=== PATIENT | male | born 1955 | race Caucasian/White ===

== ENCOUNTER 2020-12-26 14:13 | Emergency (ER) | payer MEDICARE, SELFPAY ==
--- NOTE | ~2020-12-26 | CT_ITS ---
EXAMINATION: CT brain wo con DATE: 12/26/2020 18:18 INDICATION: Headache. TECHNIQUE: Computed tomography (CT) of the head was performed without intravenous contrast. The mA wa s adjusted according to patient size. Iterative reconstruction technique was employed. The dose-lengt h product was 605.33 mGy-cm. COMPARISON: None FINDINGS: There is no intracranial hemorrhage, acute infarction, or abnormal intracranial mass lesion . The ventricles are normal in size. The orbits are normal. The paranasal sinuses are clear. The mast oid air cells are normal. IMPRESSION: 1. Normal brain. Reviewed, dictated and finalized at location A. IMPRESSION: 1. Normal brain.
--- NOTE | ~2020-12-26 | XR_ITS ---
EXAMINATION: XR chest 1V portable DATE: 12/26/2020 18:17 INDICATION: Cough. Headache. Dizziness. TECHNIQUE: A single frontal view of the chest was obtained on 2 radiographs. COMPARISON: Bilateral rib radiographs 05/07/2018 FINDINGS: The chest demonstrates clear lungs without pneumonia, pleural effusion, or pneumothorax. Th e heart size is normal. Wires overlie the right shoulder. IMPRESSION: 1. No acute cardiopulmonary disease. Reviewed, dictated and finalized at location A.
[2020-12-26 14:33] VITALS: BP 115/61; PULSE 57; RESP 16; TEMP 36.8; O2SAT 99
--- NOTE | 2020-12-26 14:35 | ECG_ITS ---
Measurements Intervals [place] Rate: 51 P: 71 CT: 167 QRS: 8 QRSD: 87 T: 29 QT: 413 QTc: 383 Interpretive Statements SINUS BRADYCARDIA NONSPECIFIC T-WAVE ABNORMALITY- LATERAL LEADS BASELINE ARTIFACT- I, III, AVL BORDERLINE ECG Electronically Signed On 12-26-2020 14:50:01 CDT by Cezar Johnson D.O.
[2020-12-26 14:52] LABS: Basophils Percent Auto 0.5 % (0.2-1.2); Eosinophils Percent Auto 0.5 % (0-4.4); Hematocrit 40.4 % (42.0-52.0); Hemoglobin 13.6 g/dL (14.0-18.0); Immature Granulocyte Absolute 0.01 K/mm3 (0.00-0.031); Immature Granulocyte Percent A 0.2 % (0-0.5); Lymphocytes Absolute Auto 1.37 K/mm3 (0.9-3.2); Lymphocytes Percent Auto 20.7 % (18.3-44.2); Mean Corpuscular HGB Conc 33.7 g/dl (32-36); Mean Corpuscular Hemoglobin 30.4 pg (26-34); Mean Corpuscular Volume 90.4 fl (80-100); Mean Platelet Volume 8.8 fl (7.4-10.4); Monocytes Absolute Auto 0.6 K/mm3 (0.1-0.6); Monocytes Percent Auto 8.3 % (2.6-8.5); Neutrophils Absolute Auto 4.6 K/mm3 (1.3-6.7); Neutrophils Percent Auto 69.8 % (45.5-73.1); Platelet Count Result 155 k/mm3 (150-375); Red Blood Count 4.47 M/mm3 (4.6-6.20); Red Cell Distribution Width 13.1 % (11.5-14.5); White Blood Count 6.6 K/mm3 (4.5-10.0)
[2020-12-26 15:07] LABS: Anion Gap 4 mmol/L (8-16); Blood Urea Nitrogen 13 mg/dL (9-20); Calcium 9.1 mg/dL (8.4-10.2); Carbon Dioxide 32 mmol/L (22-30); Chloride 101 mmol/L (98-107); Estimated CRCL calculation 84 ml/min; Estimated Glomerular Filt Rate > 60; Glucose 109 mg/dL (65-110); Potassium 4.1 mmol/L (3.4-5.0); Sodium 137 mmol/L (137-145)
--- NOTE | 2020-12-26 17:45 | ED.HA ---
HPI - Headache General Chief Complaint: Dizziness Stated Complaint: dizzy/anxiety Time Seen by Provider: 12/26/20 17:56 Source: patient Mode of arrival: ambulatory Limitations: no limitations History of Present Illness MD elicited complaint: headache and migraine Pertinent past history: migraines Onset (ago): week(s) (3) Onset description: gradually Location: generalized Severity: similar to previous episodes (15 year history of migraines) Quality & Timing: aching, throbbing, steady and similar to previous headaches Exacerbating factors: other (states usually takes valium daily for headache, but has not had valium for 3 weeks, neurolgist Dr Hillman) Relieving factors: prescription medication (valium) Context: occurred at rest and occurred with exertion/activity Associated symptoms: numbness and other (elevated blood pressure, dizziness, anxiety, depression per patient) Treatments prior to arrival: prescription analgesic and migraine medication Related Data Home Medications Medication Instructions Recorded Confirmed diazepam 10 mg tablet 10 mg PO TID PRN 02/12/21 02/12/21 melatonin 5 mg capsule mg PO .hs PRN cap 02/12/21 02/12/21 Allergies Allergy/AdvReac Type Severity Reaction Status Date / Time No Known Allergies Allergy Unknown Verified 02/12/21 15:39 Review of Systems Review of Systems: CONSTITUTIONAL: no fever, no weight loss, no confusion EYES: no vision changes, no eye pain ENT: no rhinorrhea, no sore throat, no difficulty swallowing CARDIOVASCULAR: no chest pain, no leg edema, no palpitations RESPIRATORY: no cough, no shortness of breath, no hemoptysis GASTROINTESTINAL: no abdominal pain, no nausea, no vomiting, no diarrhea GENITOURINARY: no flank pain, no dysuria, no hematuria SKIN: no rash, no jaundice MUSCULOSKELETAL: no back pain, no trauma. NEUROLOGIC: positive for headache, positive for dizziness, no focal weakness PSYCHIATRIC: No hallucinations, no suicidal ideation, positive for anxiety PMFSH Social History Social History Smoking status: Never smoker Alcohol intake: never Exam Narrative: General: alert, afebrile, answering all questions appropriately Head: normocephalic, atraumatic Eyes: EOMI bilaterally, anicteric, no injection, no nystagmus ENT: moist mucous membranes, oropharynx patent, no rhinorrhea, TM normal B Neck: supple, trachea midline Chest: equal chest rise bilaterally, no chest wall trauma noted Lungs: clear to auscultation bilaterally, respirations unlabored CV: regular rate, no NAS B, calf size equal bilaterally EXT: no deformity noted, moving all extremities equally Skin: warm, dry, no pallor Neuro: alert, oriented x 3; CN 2-12 grossly intact, no dysarthria, ambulating with steady gait Psych: depressed, anxous affect, though content normal, denies suicidal and homicidal HI Course Vital Signs Vital signs: Vital Signs Temperature 36.8 C 12/26/20 14:33 Pulse Rate 57 L 12/26/20 14:33 Respiratory Rate 16 12/26/20 14:33 Blood Pressure 115/61 12/26/20 14:33 Pulse Oximetry 99 12/26/20 14:33 Temperature 36.8 C 12/26/20 14:33 Pulse Rate 56 L 12/26/20 19:20 Respiratory Rate 12 12/26/20 19:20 Blood Pressure 195/81 H 12/26/20 19:20 Pulse Oximetry 99 12/26/20 19:20 MDM - Headache MDM Narrative Medical decision making narrative: 65-year-old male with history of chronic migraines arrives with elevated blood pressure 157/81 worsening headache with history of chronic migraines. Patient sees Dr. Aguilar, neurology and states he usually takes sumatriptan Lorcet and Valium for his migraines but now he has become depressed and dizzy and increased anxiety with worsening headache since he has not had Valium for the past 3 weeks. Patient states he is been on Valium 10 mg 3 times daily for years. No fever, no slurred speech, no focal weakness no neck stiffness no rashes. Patient's headache is all over, aching,
[2020-12-26 17:50] VITALS: BP 165/80; PULSE 51; RESP 17; O2SAT 99
--- NOTE | 2020-12-26 18:22 | PC.NURSE ---
called lab and spoke to Fransisca. Adding on Mag and Trop to lab.
[2020-12-26 18:47] LABS: Magnesium 2.2 mg/dL (1.6-2.3)
[2020-12-26] MEDS: SODIUM CHLORIDE 0.9% IV 1,000 ML 999 ML IV CONT (18:49)
[2020-12-26 18:50] VITALS: BP 157/85; PULSE 51; RESP 13; O2SAT 98
[2020-12-26 18:59] LABS: Troponin I < 0.012 ng/mL (0.000-0.034)
[2020-12-26 19:20] VITALS: BP 195/81; PULSE 56; RESP 12; O2SAT 99
--- NOTE | 2020-12-26 19:35 | PC.NURSE ---
EDP aware of blood pressure of 195/81. EDP okay w/ discharge.
== END 2020-12-26 19:25 | disposition home or self-care (01) ==
PROVIDERS: General Practice; Emergency Provider Emergency Medicine; PCP Internal Medicine
DX: R42 Dizziness and giddiness (principal); F32.A Depression, unspecified; R00.1 Bradycardia, unspecified; R94.31 Abnormal electrocardiogram [ECG] [EKG]
CPT/HCPCS: 36415; 70450; 71045; 80048; 83735; 84484; 85025; 93005; 96360; 99284; J7030

== ENCOUNTER → 2021-09-24 10:34 | Outpatient (CLI) | payer MEDICARE, SELFPAY ==
--- NOTE | ~2021-09-24 | XR_ITS ---
XR lumbar spine 2-3V DATE: 09/24/2021 10:55 INDICATION: Chronic bilateral low back pain TECHNIQUE: AP, lateral, coned lateral lumbosacral views COMPARISON: None FINDINGS: There is osteopenia. There is multi-level degenerative disc disease, severe at L4-5 and L5-S1, moderate at the remaining i nterspaces. There is mild retrolisthesis at L3-4. No fracture or bone destruction. The included lower thoracic and lumbar pedicles are intact. The sacroiliac joints are intact. IMPRESSION: Multi-level degenerative disc disease Osteopenia Reviewed, dictated and finalized at location A.
== END ==
PROVIDERS: PCP Internal Medicine; Visit Provider Internal Medicine
DX: M54.50 Low back pain, unspecified (principal); G89.29 Other chronic pain; M51.36 Other intervertebral disc degeneration, lumbar region; M85.88 Other specified disorders of bone density and structure, other site
CPT/HCPCS: 72100

== ENCOUNTER → 2022-01-16 09:02 | Outpatient (CLI) | payer MEDICARE, SELFPAY ==
--- NOTE | ~2022-01-16 | US_ITS ---
EXAMINATION: US thyroid DATE: 01/16/2022 09:43 INDICATION: Thyroid nodule. TECHNIQUE: Multiple ultrasound images of the thyroid were obtained. COMPARISON: None. FINDINGS: The right thyroid lobe measures 4.9 x 1.5 x 1.4 cm. The left thyroid lobe measures 4.1 x 1.3 x 1.4 c m. In the right thyroid lobe, there is a 7 mm mixed cystic and solid, isoechoic, wider than tall nod ule with smooth margin without echogenic foci (TI-RADS TR2). In the right thyroid lobe, there is a 7 mm solid, isoechoic, wider than tall nodule with ill-defined margin without echogenic foci (TR3). In the left thyroid lobe, there is a 2 mm nodule. IMPRESSION: 1. Small thyroid nodules, likely not clinically significant. No follow-up is needed. Reviewed, dictated and finalized at location A. IMPRESSION: 1. Small thyroid nodules, likely not clinically significant. No follow-up is ne eded.
--- NOTE | ~2022-01-16 | US_ITS ---
EXAMINATION: US abdomen complete DATE: 01/16/2022 09:42 INDICATION: Pancreatic disorder. TECHNIQUE: Multiple grayscale and Doppler ultrasound images of the abdomen were obtained. COMPARISON: CT abdomen and pelvis FINDINGS: The kidneys are normal in size. The spleen is normal in size. Abdominal aorta is normal in caliber. Inferior vena cava is normal. There is an 8 mm cyst in the liver. The gallbladder is normal in size. No gallstones or gallbladder wall thickening. There is no sonographic Arroyo sign. The commo n duct is normal and measures 3 mm. There is normal flow in main portal vein. The visualized portion of the head of the pancreas is normal. IMPRESSION: 1. No significant abnormality. Reviewed, dictated and finalized at location A.
== END ==
PROVIDERS: PCP Internal Medicine; Visit Provider Internal Medicine
DX: K86.9 Disease of pancreas, unspecified (principal); E04.2 Nontoxic multinodular goiter
CPT/HCPCS: 76536; 76700

== ENCOUNTER 2023-01-31 08:25 | Outpatient (CLI) | payer MEDICARE, SELFPAY ==
--- NOTE | ~2023-01-31 | CT_ITS ---
CT of the Abdomen and Pelvis: Indication: Microscopic hematuria Technique: 2.5 mm axial scans were obtained through the abdomen and pelvis prior to and following in travenous administration of 130 cc of Omnipaque 350. Dose reduction technique was used on this scan b y utilizing automated exposure control and iterative reconstruction technique. The dose-length produc t (DLP) was 985.01 mGy-cm. Findings: Scans through the lung bases are unremarkable. Left hepatic lobe cyst noted. The spleen, pancreas, gallbladder, adrenals and right kidney are within normal limits. 4 mm nonobstructing left renal stone present. No evidence of aortic aneurysm. No lym phadenopathy. No bowel obstruction or bowel wall thickening. There is no evidence to suggest acute appendicitis. Images through the pelvis were performed. Urinary bladder unremarkable. No pelvic mass seen. No ascit es. Right hydrocele partially imaged. Impression: 4 mm left renal stone, nonobstructing. Right hydrocele, partially imaged. Reviewed, dictated and finalized at location . R RUNNER Impression: 4 mm left renal stone, nonobstructing. Right hydrocele, partially imaged.
--- NOTE | ~2023-01-31 | XR_ITS ---
Supine and upright views of the abdomen Clinical history: Microscopic hematuria COMPARISON: 06/26/2005 Findings: Bowel gas pattern is nonspecific. No evidence for obstruction or free air. No abnormal mass lesion or calcification is seen. Osseous structures are intact. Impression: No significant abnormality is seen. Reviewed, dictated and finalized at [facility]. ING UNIT OPERATOR Impression: No significant abnormality is seen.
[2023-01-31 08:58] LABS: Estimated Glomerular Filt Rate > 60
== END 2023-01-31 08:26 | disposition home or self-care (01) ==
PROVIDERS: PCP Internal Medicine; Visit Provider Urology
DX: R31.29 Other microscopic hematuria (principal); N20.0 Calculus of kidney; N43.3 Hydrocele, unspecified
CPT/HCPCS: 74018; 74178; Q9967

== ENCOUNTER 2023-08-26 10:08 | Outpatient (CLI) | payer MEDICARE, SELFPAY ==
--- NOTE | ~2023-08-26 | XR_ITS ---
XR abdomen/kub 1V 08/26/2023 10:28 INDICATION: Kidney stone TECHNIQUE: KUB COMPARISON: 06/25/2005 FINDINGS: Bowel gas pattern is normal. There is no evidence of free air, mass, organomegaly, ascites or obstruction. No abnormal calculi are seen. The bones appear intact. Moderate colonic fecal load ing. Moderate lumbar spondylosis. IMPRESSION: 1: No acute abdominal abnormality identified. Reviewed, dictated and finalized at location B.
== END 2023-08-26 10:09 | disposition home or self-care (01) ==
LOC: ANHIMG 10:11
PROVIDERS: PCP Internal Medicine; Visit Provider Urology
DX: N20.0 Calculus of kidney (principal)
CPT/HCPCS: 74018

== ENCOUNTER 2024-01-12 15:51 | Outpatient (CLI) | payer MEDICARE, SELFPAY ==
--- NOTE | ~2024-01-12 | XR_ITS ---
Lumbosacral Spine: AP and lateral views Clinical History: Pain Findings: The normal lordotic curve is maintained. No fracture seen. There is minimal grade 1 retroli sthesis of L1 over L2, and L2 over L3. There is advanced degenerative spurring at L5-S1. There is mod erate to advanced degenerative disc narrowing L3-L4 and L4-L5. There is moderate to advanced facet ar thropathy, worst at L4-L5 and L5-S1. The sacroiliac joints are normally outlined. Impression: Advanced degenerative spondylosis, as above. Reviewed, dictated and finalized at location M. Impression: Advanced degenerative spondylosis, as above.
== END 2024-01-12 15:52 | disposition home or self-care (01) ==
PROVIDERS: PCP Internal Medicine; Visit Provider Internal Medicine
DX: M15.0 Primary generalized (osteo)arthritis (principal); M47.896 Other spondylosis, lumbar region
CPT/HCPCS: 72100

== ENCOUNTER 2024-08-13 10:05 | Outpatient (CLI) | payer MEDICARE, SELFPAY ==
--- NOTE | ~2024-08-13 | MR_ITS ---
MRI of the left foot CLINICAL HISTORY: Chronic pain TECHNIQUE: Axial proton-density and proton-density fat-sat images, sagittal T1-weighted and STIR imag es, and coronal T1-weighted and proton-density fat-sat images were performed. FINDINGS: Bone marrow signals are unremarkable. No fracture or bone marrow edema seen. No evidence fo r osteitis. Mild hallux valgus. Joint spaces are intact. Small joint effusion present at the first MT P joint. Flexor and extensor tendons appear intact. No intermetatarsal bursitis or Melissa's neuroma. There is extensive dorsal soft tissue swelling/edema at the forefoot. No discrete fluid collection or mass taylor dent. There is mild edematous change of the plantar musculature of the foot. IMPRESSION: Extensive dorsal soft tissue swelling/edema of the forefoot without mass lesion or fluid collection. Nonspecific myositis the plantar musculature of the foot. Reviewed, dictated and finalized at [facility].
== END 2024-08-13 10:06 | disposition home or self-care (01) ==
PROVIDERS: PCP Podiatrist Foot & Ankle Surgery; Visit Provider Internal Medicine
DX: M60.872 Other myositis, left ankle and foot (principal); G89.29 Other chronic pain
CPT/HCPCS: 73718

== ENCOUNTER 2024-09-20 13:16 | Outpatient (CLI) | payer MEDICARE, SELFPAY ==
--- OUTSIDE RECORDS SUMMARY | 2024-09-20 13:25 | XMS_ITS | Encounter Summary ---
Author Organization [facility] Address [facility] [place] [address] Care Team Providers Care Water Resource Engineering Specialist Name Role Phone Melvin Ross MD Primary Care Provider [phone] Karime Johnston MD Unavailable [phone] Cortez Renee MD Unavailable [phone] Enrico Millan MD Unavailable [phone] Encounter Details Date Type Department Care Team (Late st Contact Info) Description 07/21/[address] [facility] - [place] [address] [place] [address] [address] [place] [address] [place] [address] [place] [address] [address] [place] [address] Duloxetine Social History Tobacco Use Types Packs/Day Years Used Date Smoking Tobacco: Never Smokeless Tobacco: Never Comments:counseled by Dr Sharon olivier Alcohol Use Standard Drinks/Week Comments Yes 1.7 (1 standard drink = 0.6 oz p ure alcohol) 0-1/month B1300 Health Literacy Answer Date Recor ded How often do you need to hav e someone help you when you read instructions, pamphlets, or other written material from your doctor or pharmacy? Never 07/14/2024 [facility] Utilities Answer Date Recorded In the past 12 months has e electric, gas, oil, or water company threatened to shut off services in your home? No 07/14/2024 Humiliation, Afraid, Rape, and Kick questionnair e Answer Date Recorded Within the last year, have y ou been afraid of your partner or ex-partner? No 07/14/2024 Within the last year, have y ou been humiliated or emotionally abused in other ways by your partner or ex-partner? No Within the last year, have y ou been kicked, hit, slapped, or otherwise physically hurt by your partner or ex-partner? No 07/14/2024 Within the last year, have y ou been raped or forced to have any kind of sexual activity by your partner or ex-partner? No 07/14/2024 Social Connection and Isolat ion Panel [NHANES] Answer Date Recorded In a typical week, how many times do you talk on the phone with family, friends, or neighbors? More than three times a week 07/14/2024 How often do you get togethe r with friends or relatives? More than three times a week 07/14/2024 How often do you attend [facility] or latter day services? More than 4 times per year 07/14/2024 Do you belong to any clubs o r organizations such as evangelical groups, unions, fraternal or athletic groups, or school groups? Yes 07/14/2024 How often do you attend meet ings of the clubs or organizations you belong to? 1 to 4 times per year 07/14/2024 Are you , , di vorced, , never , or living with a partner? 07/14/2024 AUDIT-C Answer Date Recorded Q1: How often do you have a drink containing alcohol? Monthly or less 07/14/2024 Q2: How many drinks containi ng alcohol do you have on a typical day when you are drinking? Patient does not drink Q3: How often do you have si x or more drinks on one occasion? Never 07/14/2024 Overall Financial Resource Strain (CARDIA) Answe r Date Recorded How hard is it for you to pa y for the very basics like food, housing, medical care, and heating? Somewhat hard 07/14/2024 PHQ-2 Answer Date Recorded Patient Health Questionnaire-2 Score 1 07/21/2024 [facility] of Occupat ional Health - Occupational Stress Questionnaire Answer Date Recorded Do you feel stress - tense, restless, nervous, or anxious, or unable to sleep at night because your mind is troubled all the time - these days? Only a little 07/14/2024 Exercise Vital Sign Answer Date Recorde d On average, how many days pe r week do you engage in moderate to strenuous exercise (like a brisk walk)? 7 days 07/14/2024 On average, how many minutes do you engage in exercise at this level? 60 min 07/14/2024 Hunger Vital Sign Answer Date Recorded Within the past 12 months, y ou worried that your food would run out before you got the money to buy more. Never true 07/15/19 25 Within the past 12 months, t he food you bought just didn't last and you didn't have money to get more. Never true 07/14/2024 PRAPARE - Transportation Answer Date Re corded In the past 12 months, has l ack of transportation kept you from medical appointments or from getting medications? No 06/17 In the past 12 months, has l ack of transportation kept you from meetings, work, or from getting things needed for daily living? No 07/14/2024 Housing Stability Vital Sign Answer Christian e Recorded In the last 12 months, was t here a time when you were not able to pay the mortgage or rent on time? No 07/14/2024 Number of Times Moved in the Last Year Not on fi le 07/14/2024 At any time in the past 12 m [facility], were you homeless or living in a [place] facility (including now)? 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 Question Answer Date of Assessment Author Status Little interest or pleasure in doing things Not at all 07/21/2024 9:52 AM CDT Ladonna Cavanaugh, MA Acti ve Feeling down, depressed, or hopeless Several days 07/21/2024 9:52 AM Ladonna Gonzalez MA Active Patient Health Questionnaire-2 Score 1 07/21/2024 9:52 AM Ladonna Gonzalez M A Active * Question Answer Date of Assessment Author Status Trouble falling or staying asleep, or sleeping too much Not at all 07/21/2024 9:52 AM Ladonna Gonzalez MA Active Feeling tired or having little energy More than half the days 07/21/2024 9:52 AM Ladonna Gonzalez MA Active Poor appetite or overeating Not at all 07/21/2024 9:52 AM Ladonna Gonzalez MA Active Feeling bad about yourself - or that you are a failure or have let yourself or your family down Several days 07/21/2024 9:52 AM Ladonna Gonzalez MA Active Trouble concentrating on things, such as reading the newspaper or watching television Not at all 07/21/2024 9:52 AM Ladonna Gonzalez MA Active Moving or speaking so slowly that other people could have noticed? Or the opposite - being so fidgety or restless that you have been moving around a lot more than usual. Not at all 07/21/2024 9:52 AM Ladonna Gonzalez MA Active Thoughts that you would be better off or hurting yourself in some way Not at all 07/21/2024 9:52 AM Ladonna Gonzalez MA Active Patient Health Questionnaire-9 Score 4 07/21/2024 9:52 AM Ladonna Gonzalez MA Active * If you checked off any problems on this questionnaire so far, Question Answer Date of Assessment Author Status How difficult have these problems made it for you to do your work, take care of things at home, or get along with other people? Very difficult 07/21/2024 9:52 AM Ladonna Gonzalez MA Active * Over the last 2 weeks, how often have you been bothered by any of the following problems? Question Answer Date of Assessment Author Status Feeling nervous, anxious, or on edge 1 07/21/2024 9:53 AM CDT Ladonna Cavanaugh MA Acti ve Not being able to stop or control worrying 0 07/21/2024 9:53 AM CDT Ladonna Cavanaugh MA Act chely Worrying too much about different things 1 07/21/2024 9:53 AM CDT Ladonna Cavanaugh MA Act chely Trouble relaxing 0 07/21/2024 9:53 AM CDT Ladonna Cavanaugh MA Active Being so restless that it is hard to sit still 0 07/21/2024 9:53 AM CDT Ladonna Cavanaugh MA Active Becoming easily annoyed or irritable 1 07/21/2024 9:53 AM CDT Ladonna Cavanaugh MA Acti ve Feeling afraid as if something awful might happen 1 07/21/2024 9:53 AM CDT Ladonna Cavanaugh MA Acti ve MARIXA-7 Total Score 4 07/21/2024 9:53 AM CDT Ladonna Cavanaugh MA Active documented as of this encounter Plan of Treatment Upcoming Encounters Date Type Department Care Team (Late st Contact Info) Description 10/25/2024 11:20 AM CDT Office Visit [facility] - [place] [address] [address] [place] [address] Melvin Ross MD [address] [place] [address] documented as of this encounter Visit Diagnoses Not on filedocumented in this encounter Additional Health Concerns Assessment Noted Time PHQ-9 Depression Total Score: 4 07/22/19 25 9:52 AM CDT documented as of this encounter Care Teams Water Resource Engineering Specialist Relationship Specialty Start Date End Date Melvin Ross MD [address] [place] [address] PCP - General INTERNAL MEDICINE 08/23/21 [place] [address] [place] [address] Consulting Physician UROLOGY 05/29/22 Cortez Renee MD [address] [place] [address] Surgeon NEUROLOGICAL SURGERY 05/29/22 Enrico Millan MD [facility] [address] [place] [address] Referring Physician SPORTS MEDICINE 01/21/24 documented as of this encounter
--- OUTSIDE RECORDS SUMMARY | 2024-09-20 13:25 | XMS_ITS | Encounter Summary ---
Author Organization [facility] Address [facility] [place] [address] Care Team Providers Care Penciller Name Role Phone Melvin Ross MD Primary Care Provider [phone] Karime Johnston MD Unavailable [phone] Cortez Renee MD Unavailable [phone] Enrico Millan MD Unavailable [phone] Encounter Details Date Type Department Care Team (Latest Contact Info) Description 2024 Quiret Message Enc [facility] - [place] [address] [address] [place] [address] [place] [address] [place] [address] [address] [place] [address] nerve conduction test Social History Tobacco Use Types Packs/Day Years [...] from your doctor or pharmacy? Never 07/14/2024 [facility] Utilities Answer Date Recorded In the [...] week 07/14/2024 How often do you attend [facility] or judaism services? More than 4 times per year 07/14/2024 Do you belong to any clubs o r organizations such as caodaism groups, unions, fraternal or athletic groups, or [...] Recorded Patient Health Questionnaire-2 Score 1 07/21/2024 [facility] [place] of Occupat ional Health - Occupational Stress [...] any time in the past 12 m [facility], were you homeless or living in a assisted (including now)? 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 Not on file Not on file documented as of this encounter Plan of Treatment Upcoming Encounters Date Type Department Care Team (Late st Contact Info) Description 10/25/2024 11:20 AM CDT Office Visit [facility] Multispecialty Care - [address] [place] [address] Melvin Ross MD [address] [facility] [address] [place] [address] documented as of this encounter Visit Diagnoses Not on filedocumented in this encounter Additional Health Concerns Assessment Noted Time PHQ-9 Depression Total Score: 4 07/22/19 25 9:52 AM CDT documented as of this encounter Care Teams Penciller Relationship Specialty Start Date End Date Melvin Ross MD [address] [facility] [address] [place] [address] PCP - General INTERNAL MEDICINE 08/23/21 [place] [address] [place] [address] Consulting Physician UROLOGY 05/29/22 Cortez Renee MD [address] [place] [address] Surgeon NEUROLOGICAL SURGERY 05/29/22 Enrico Millan MD [address] [facility] [address] [place] [address] Referring Physician SPORTS MEDICINE 01/21/24 documented as of this encounter
--- OUTSIDE RECORDS SUMMARY | 2024-09-20 13:25 | XMS_ITS | Encounter Summary ---
Author Organization [facility] - [facility] Address [facility] [place] [address] Care Team Providers Care Supervisor Record Press Name Role Phone Melvin Ross MD Primary Care Provider Karime Johnston MD Unavailable [phone] Cortez Renee MD Unavailable [phone] Enrico Millan MD Unavailable [phone] Encounter Details Date Type Department Care Team (Late st Contact Info) Description 09/13/2022 MyChart Message Enc [facility] Medical Group Multispecialty Care - [place] [address] [address] [place] [address] [place] [address] [place] [address] [address] [place] [address] Esomeprazole Social History Tobacco Use Types Packs/Day Years Used Date Smoking Tobacco: Never Smokeless Tobacco: Never Comments:counseled by Dr Sharon olivier Alcohol Use Standard Drinks/Week Comments Yes 1.7 (1 standard drink = 0.6 oz p ure alcohol) 0-1/month AUDIT-C Answer Date Recorded Q1: How often do you have a drink containing alc ohol? Monthly or less 05/29/2022 Q2: How many drinks containi ng alcohol do you have on a typical day when you are drinking? 1 or 2 05/29/2022 Q3: How often do you have si x or more drinks on one occasion? 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 No / Unsure 08/30/2022 8:29 AM CDT documented as of this encounter Plan of Treatment Upcoming Encounters Date Type Department Care Team (Late st Contact Info) Description 10/25/2024 11:20 AM CDT Office Visit [facility] Medical Group Multispecialty Care - [place] [address] [address] [address] [place] [address] Melvin Ross MD [address] [place] [address] documented as of this encounter Visit Diagnoses Not on filedocumented in this encounter Additional Health Concerns Assessment Noted Time PHQ-9 Depression Total Score: 10 023 12:29 PM CDT documented as of this encounter Care Teams Supervisor Record Press Relationship Specialty Start Date End Date Melvin Ross MD [address] [place] [address] PCP - General INTERNAL MEDICINE 08/23/21 [place] [address] [place] [address] Consulting Physician UROLOGY 05/29/22 Cortez Renee MD [address] [place] [address] Surgeon NEUROLOGICAL SURGERY 05/29/22 Enrico Millan MD [address] [facility] [address] [place] [address] Referring Physician SPORTS MEDICINE 01/21/24 documented as of this encounter
--- OUTSIDE RECORDS SUMMARY | 2024-09-20 13:25 | XMS_ITS | Encounter Summary ---
Author Organization [facility] Address [facility] [place] [address] Care Team Providers Care Prototype Special Build Name Role Phone Melvin Ross MD Primary Care Provider [phone] Karime Johnston MD Unavailable [phone] Cortez Renee MD Unavailable [phone] Enrico Millan MD Unavailable [phone] Encounter Details Date Type Department Care Team (Late st Contact Info) Description 06/17/2022 Therapy Plan [facility] Outpatient Therapy [place], [place] [id number] Abena Cordon, PT [address] [place], [place] [id number] Social History Tobacco Use Types Packs/Day Years Used Date Smoking Tobacco: Never Smokeless Tobacco: Never Comments:counseled by Dr Sharon olivier Alcohol Use Standard Drinks/Week Comments Not Currently 0 (1 standard drink = 0.6 oz pur e alcohol) 0-1/month AUDIT-C Answer Date Recorded Q1: [...] Answer Date Recorded Patient Health Questionnaire-2 Score 2 05/29/2022 Sex and Gender Information Value Date Recorded Sex Assigned at Male 07/14/2024 3:19 PM CDT 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 No / Unsure 06/14/2022 8:57 AM CDT documented as of this encounter Plan of Treatment Upcoming Encounters Date Type Department Care Team (Late st Contact Info) Description 10/25/2024 11:20 AM CDT Office Visit [facility] Medical Group Multispecialty Care - [place] [address] [address] [address] [place] [address] Melvin Ross MD [address] [place] [address] documented as of this encounter Visit Diagnoses Not on filedocumented in this encounter Additional Health Concerns Assessment Noted Time PHQ-9 Depression Total Score: 3 05/30/19 23 1:26 PM CDT documented as of this encounter Care Teams Prototype Special Build Relationship Specialty Start Date End Date Melvin Ross MD [address] [place] [address] PCP - General INTERNAL MEDICINE 08/23/21 [place] [address] [place] [address] Consulting Physician UROLOGY 05/29/22 Cortez Renee MD [address] [place] [address] Surgeon NEUROLOGICAL SURGERY 05/29/22 Enrico Millan MD [address] [facility] [address] [place] [phone] Referring Physician SPORTS MEDICINE 01/21/24 documented as of this encounter
--- OUTSIDE RECORDS SUMMARY | 2024-09-20 13:25 | XMS_ITS | Encounter Summary ---
Author Organization [facility] - [facility] Address [facility] [place] [address] Care Team Providers Care City Collector Name Role Phone Melvin Ross MD Primary Care Provider [phone] Karime Johnston MD Unavailable [phone] Cortez Renee MD Unavailable [phone] Enrico Millan MD Unavailable [phone] Encounter Details Date Type Department Care Team (Latest Contact Info) Description 01/06/2024 Innovative [employer]itions Message Enc 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 Medical Group Multispecialty Care - [place] [address] [address] [place] [address] Melvin Ross MD [address] [place] [address] documented as of this encounter Visit Diagnoses Not on filedocumented in this encounter Additional Health Concerns Assessment Noted Time PHQ-9 Depression Total Score: 12 024 11:07 AM CDT documented as of this encounter Care Teams City Collector Relationship Specialty Start Date End Date Melvin Ross MD [address] [place] [address] PCP - General INTERNAL MEDICINE 08/23/21 [place] [address] [place] [phone] Consulting Physician UROLOGY 05/29/22 Cortez Renee MD 3 [place] [address] Surgeon NEUROLOGICAL SURGERY 05/29/22 Enrico Millan MD [address] [facility] [address] [place] [address] Referring Physician SPORTS MEDICINE 01/21/24 documented as of this encounter
--- OUTSIDE RECORDS SUMMARY | 2024-09-20 13:25 | XMS_ITS | Encounter Summary ---
Author Organization [facility] - [facility] Address [facility] [place] [address] Care Team Providers Care Open Hearth Melter Name Role Phone Melvin Ross MD Primary Care Provider [phone] Karime Johnston MD Unavailable [phone] Cortez Renee MD Unavailable [phone] Enrico Millan MD Unavailable [phone] Encounter Details Date Type Department Care Team (Late st Contact Info) Description 09/03/2022 MyChart Message Enc [facility] Medical Group Multispecialty Care - [place] [address] [address] [place] [address] [place] [address] [place] [address] 157 [place] [address] cyst Social History Tobacco Use Types Packs/Day Years [...] PM CDT 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 Wish to be (Past 1 Month) No 09/05/2022 12:00 PM CDT Ayanna Melo RN Ac tive 2. Non-Specific Active Suicidal Thoughts (Past 1 Month) No 09/05/2022 12:00 PM CDT Ayanna Melo RN Ac tive 6. Suicidal Behavior (Lifetime) No 09/05/2022 12:00 PM CDT Ayanna Melo RN Ac tive documented as of this encounter Plan of Treatment Upcoming Encounters Date Type Department Care Team (Late st Contact Info) Description 10/25/2024 11:20 AM CDT Office Visit [facility] Medical Group Multispecialty Care - [place] [address] [address] [address] [place] [address] Melvin Ross MD [address] [place] [address] documented as of this encounter Visit Diagnoses Not on filedocumented in this encounter Additional Health Concerns Assessment Noted Time PHQ-9 Depression Total Score: 10 023 12:29 PM CDT documented as of this encounter Care Teams Open Hearth Melter Relationship Specialty Start Date End Date Melvin Ross MD [address] [facility] [address] [place] [address] PCP - General INTERNAL MEDICINE 08/23/21 [place] [address] [place] [address] Consulting Physician UROLOGY 05/29/22 Cortez Renee MD 3 [place] [address] Surgeon NEUROLOGICAL SURGERY 05/29/22 Enrico Millan MD [address] [facility] [address] [place] [address] Referring Physician SPORTS MEDICINE 01/21/24 documented as of this encounter
--- OUTSIDE RECORDS SUMMARY | 2024-09-20 13:25 | XMS_ITS | Encounter Summary ---
Author Organization [facility] - [facility] Address [facility] [place] [address] Care Team Providers Care Verifying Machine Operator Name Role Phone Melvin Ross MD Primary Care Provider Karime Johnston MD Unavailable [phone] Cortez Renee MD Unavailable [phone] Enrico Millan MD Unavailable [phone] Encounter Details Date Type Department Care Team (Late st Contact Info) Description 08/30/2021 MyChart Message Enc [facility] Medical Group Multispecialty Care - [place] [address] [address] [address] [place] [address] Melvin Ross MD [address] [place] [address] 157 [place] [address] suppositories Social History Tobacco Use Types Packs/Day Years Used Date Smoking Tobacco: Never Smokeless Tobacco: Never Alcohol Use Standard Drinks/Week Comments Not Currently 0 (1 standard drink = 0.6 oz pur e alcohol) Rarely drink PHQ-2 Answer Date Recorded PHQ-2 Score - If the patient scores above 3, please move on to questions 3-9 6 08/23/2021 Sex and Gender Information Value Date Recorded Sex Assigned at Male 07/14/2024 3:19 PM CDT 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 No / Unsure 08/22/2021 3:35 PM CDT documented as of this encounter Plan of Treatment Upcoming Encounters Date Type Department Care Team (Late st Contact Info) Description 10/25/2024 11:20 AM CDT Office Visit [facility] Medical Group Multispecialty Care - [place] [address] [address] [place] [address] [place] [address] [place] [address] [address] [place] [address] documented as of this encounter Visit Diagnoses Not on filedocumented in this encounter Additional Health Concerns Assessment Noted Time PHQ-9 Depression Total Score: 15 022 2:06 PM CDT documented as of this encounter Care Teams Verifying Machine Operator Relationship Specialty Start Date End Date Melvin Ross MD [address] [place] [address] 157 [place] [address] PCP - General INTERNAL MEDICINE 08/23/21 [place] [address] [place] [address] Consulting Physician UROLOGY 05/29/22 Cortez Renee MD 3 [place] [address] Surgeon NEUROLOGICAL SURGERY 05/29/22 Enrico Millan MD [address] [facility] [address] [place] [address] Referring Physician SPORTS MEDICINE 01/21/24 documented as of this encounter
--- OUTSIDE RECORDS SUMMARY | 2024-09-20 13:25 | XMS_ITS | Encounter Summary ---
Author Organization [facility] Address [facility] [place] [address] Care Team Providers Care Transfer Engineer Name Role Phone Melvin Ross MD Primary Care Provider [phone] Karime Johnston MD Unavailable [phone] Cortez Renee MD Unavailable [phone] Enrico Millan MD Unavailable [phone] Encounter Details Date Type Department Care Team (Late st Contact Info) Description 10/21/2023 MyChart Message Enc [facility] Medical Group Orthopedic & Sports Medicine - [place] [address] [place] [address] Edison Kay MD [address] [place] [address] Advice for knee exercises Social History Tobacco Use Types Packs/Day Years [...] PM CDT 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 Gender Identity Male 07/14/2024 3:19 PM CDT [...] Description 10/25/2024 11:20 AM CDT Office Visit [facility] Medical Group Multispecialty Care - [place] [address] [address] [place] [address] Melvin Ross MD [address] [place] [address] documented as of this encounter Visit Diagnoses Not on filedocumented in this encounter Additional Health Concerns Assessment Noted Time PHQ-9 Depression Total Score: 12 024 11:07 AM CDT documented as of this encounter Care Teams Transfer Engineer Relationship Specialty Start Date End Date Melvin Ross MD [address] [place] [address] PCP - General INTERNAL MEDICINE 08/23/21 [place] [address] [place] [phone] Consulting Physician UROLOGY 05/29/22 Cortez Renee MD 3 [place] [address] Surgeon NEUROLOGICAL SURGERY 05/29/22 Enrico Millan MD [address] [facility] [address] [place] [address] Referring Physician SPORTS MEDICINE 01/21/24 documented as of this encounter
--- OUTSIDE RECORDS SUMMARY | 2024-09-20 13:25 | XMS_ITS | Encounter Summary ---
Author Organization [facility] - [facility] Address [facility] [place] [address] Care Team Providers Care Moss Gatherer Name Role Phone Melvin Ross MD Primary Care Provider [phone] Karime Johnston MD Unavailable [phone] Cortez Renee MD Unavailable [phone] Enrico Millan MD Unavailable [phone] Encounter Details Date Type Department Care Team (Late st Contact Info) Description 07/19/2024 MyChart Message Enc [facility] Medical Group Multispecialty Care - [place] [address] [place] [address] [address] [place] [address] Melvin Ross MD [address] [place] [address] [address] [place] [address] Foot pain Social History Tobacco Use Types Packs/Day Years [...] from your doctor or pharmacy? Never 07/14/2024 [facility] Utilities Answer Date Recorded In the [...] week 07/14/2024 How often do you attend up health system or adventist services? More than 4 times per year 07/14/2024 Do you belong to any clubs o r organizations such as restorationist groups, unions, fraternal or athletic groups, or [...] Recorded Patient Health Questionnaire-2 Score 1 07/21/2024 [facility] [place] of Occupat ional Health - Occupational Stress [...] time in the past 12 m [facility], were you homeless or living in a fpc (including now)? 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 Gender Identity Male 07/14/2024 3:19 PM CDT [...] MA Active documented as of this encounter Progress Notes * Andie Ng - 07/20/2024 8:12 AM CDT Called and LVM for patient to return call to schedule documented in this encounter Plan of Treatment Upcoming Encounters Date Type Department Care Team (Late st Contact Info) Description 10/25/2024 11:20 AM CDT Office Visit [facility] Medical Group Multispecialty Care - [place] [address] [address] [place] [address] Melvin Ross MD [address] [place] [address] documented as of this encounter Visit Diagnoses Not on filedocumented in this encounter Additional Health Concerns Assessment Noted Time PHQ-9 Depression Total Score: 5 07/15/19 25 4:11 PM CDT documented as of this encounter Care Teams Moss Gatherer Relationship Specialty Start Date End Date Melvin Ross MD [address] [place] [address] [place] [address] PCP - General INTERNAL MEDICINE 08/23/21 [place] [address] [place] [address] Consulting Physician UROLOGY 05/29/22 Cortez Renee MD 3 [place] [address] Surgeon NEUROLOGICAL SURGERY 05/29/22 Enrico Millan MD [address] [facility] [address] [place] [address] Referring Physician SPORTS MEDICINE 01/21/24 documented as of this encounter
--- OUTSIDE RECORDS SUMMARY | 2024-09-20 13:25 | XMS_ITS | Encounter Summary ---
Author Organization [facility] - [facility] Address [facility]6 [place] [address] Care Team Providers Care Plate Grinder Name Role Phone Melvin Ross MD Primary Care Provider [phone] Karime Johnston MD Unavailable [phone] Cortez Renee MD Unavailable [phone] Enrico Millan MD Unavailable [phone] Encounter Details Date Type Department Care Team (Late st Contact Info) Description 09/26/2023 MyChart Message Enc 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 Gender Identity Male 07/14/2024 3:19 PM [...] [facility] Multispecialty Care - [place] [address] [address] [place] [address] Melvin Ross MD [address] [place] [address] documented as of this encounter Visit Diagnoses Not on filedocumented in this encounter Additional Health Concerns Assessment Noted Time PHQ-9 Depression Total Score: 12 024 11:07 AM CDT documented as of this encounter Care Teams Plate Grinder Relationship Specialty Start Date End Date Melvin Ross MD [address] [place] [address] PCP - General INTERNAL MEDICINE 08/23/21 [place] [address] [place] [address] Consulting Physician UROLOGY 05/29/22 Cortez Renee MD 3 [place] [address] Surgeon NEUROLOGICAL SURGERY 05/29/22 Enrico Millan MD [address] [facility] [address] [place] [address] Referring Physician SPORTS MEDICINE 01/21/24 documented as of this encounter
--- OUTSIDE RECORDS SUMMARY | 2024-09-20 13:25 | XMS_ITS | Encounter Summary ---
Author Organization [facility] - [facility] Address [facility] [place] [address] Care Team Providers Care Medical Illustrator Name Role Phone Melvin Ross MD Primary Care Provider [phone] Karime Johnston MD Unavailable [phone] Cortez Renee MD Unavailable [phone] Enrico Millan MD Unavailable [phone] Encounter Details Date Type Department Care Team (Latest Contact Info) Description 09/10/2023 Printechnologicst Message Enc [facility] Medical Group Multispecialty Care - [place] [address] [address] [place] [address] [place] [address] [place] [address] 157 [place] [address] Arthroscopic Surgeon Social History Tobacco Use Types Packs/Day Years [...] PM CDT 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 Gender Identity Male 07/14/2024 3:19 PM CDT [...] Description 10/25/2024 11:20 AM CDT Office Visit [facility] Medical Group Multispecialty Care - [place] [address] [address] [place] [address] Melvin Ross MD [address] [place] [address] documented as of this encounter Visit Diagnoses Not on filedocumented in this encounter Additional Health Concerns Assessment Noted Time PHQ-9 Depression Total Score: 12 024 11:07 AM CDT documented as of this encounter Care Teams Medical Illustrator Relationship Specialty Start Date End Date Melvin Ross MD [address] [place] [address] PCP - General INTERNAL MEDICINE 08/23/21 [place] [address] [place] [address] Consulting Physician UROLOGY 05/29/22 Cortez eRnee MD [address] [place] [address] Surgeon NEUROLOGICAL SURGERY 05/29/22 Enrico Millan MD [address] [facility] [address] [place] [address] Referring Physician SPORTS MEDICINE 01/21/24 documented as of this encounter
--- OUTSIDE RECORDS SUMMARY | 2024-09-20 13:25 | XMS_ITS | Encounter Summary ---
Author Organization [facility] - [facility] Address [facility] [place] [address] Care Team Providers Care Oncology Research Rn Name Role Phone Melvin Ross MD Primary Care Provider [phone] Karime Johnston MD Unavailable [phone] Cortez Renee MD Unavailable [phone] Enrico Millan MD Unavailable [phone] Encounter Details Date Type Department Care Team (Late st Contact Info) Description 07/23/2024 Results Follow-Up [facility] - [place] [address] [place] [address] Makenna Prather, GUITAR MAKER [address] [place], [place] [id number] XR FOOT LT 3V Social History Tobacco Use Types Packs/Day Years [...] from your doctor or pharmacy? Never 07/14/2024 [facility] Utilities Answer Date Recorded In the past 12 months has th e electric, gas, oil, or water company [...] week 07/14/2024 How often do you attend [facility] or judaism services? More than 4 times per year 07/14/2024 Do you belong to any clubs o r organizations such as uatsdin groups, unions, fraternal or athletic groups, or [...] Recorded Patient Health Questionnaire-2 Score 1 07/21/2024 [facility] - Occupational Stress [...] any time in the past 12 m [facility], were you homeless or living in a senior care (including now)? 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 Gender Identity Male 07/14/2024 3:19 PM CDT [...] Description 10/25/2024 11:20 AM CDT Office Visit [facility] - [address] [place] [address] Melvin Ross MD [address] [facility] [address] [place] [address] documented as of this encounter Visit Diagnoses Not on filedocumented in this encounter Additional Health Concerns Assessment Noted Time PHQ-9 Depression Total Score: 4 07/22/19 25 9:52 AM CDT documented as of this encounter Care Teams Oncology Research Rn Relationship Specialty Start Date End Date Melvin Ross MD [address] [facility] [address] [place] [address] PCP - General INTERNAL MEDICINE 08/23/21 [place] [address] [place] [id number] Consulting Physician UROLOGY 05/29/22 Cortez Renee MD [address] [place] [address] Surgeon NEUROLOGICAL SURGERY 05/29/22 Enrico Millan MD [address] [facility] [address] [place] [address] Referring Physician SPORTS MEDICINE 01/21/24 documented as of this encounter
--- OUTSIDE RECORDS SUMMARY | 2024-09-20 13:25 | XMS_ITS | Data Portability ---
Author Organization [place] [facility] [employer], Main Office Address [address] [place] [address] Care Team Providers Care Blue Leather Sorter Name Role Phone KRISTEN JOHNSON Primary Care Provider KRISTEN JOHNSON Referring Provider [phone] Assessment Encounter Date Assessment Date Assessment LastModified by Organization Details LastModified Time 12/26/2022 12/26/2022 Patient has chronic rotator cuff tendinitis and impingement both shoulders with some osteoarthritis as well. 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 His request under sterile conditions I injected the patient's bilateral shoulder joints and bilateral knee joints in the office today for total of 4 injections with 4 cc 0.5% ropivacaine and 20 mg of Kenalog each. The patient tolerated the procedure well. I will see him back as needed will continue with Celebrex and other conservative measures with the pain management doctor for his back and neck. He voiced understanding agrees above plan will call for any further problems difficulties or questions. Not available 12/26/2022 11:09:57 03/27/2023 03/27/2023 By x-ray exam th e patient is noted have mild primary osteoarthritis both shoulders right slightly worse than left with chronic rotator cuff tendinitis and impingement as well. He also has moderate primary osteoarthritis both knee joints with narrowing in the medial and patellofemoral articulations on the medial and lateral facets with hypertrophic changes here. We talked about treatment options today in detail he wanted proceed with cortisone therefore under sterile conditions I injected the patient's bilateral shoulder joints and the patient's bilateral knee joints in the office with 4 cc 0.5% bupivacaine and 20 mg of Kenalog each. The patient tolerated the procedure well. He will take Aleve [id number] I offered him a formal prescription he declined, He will take Aleve tizn-[id number]-mptybph 2 pills twice a day when he is having more pain hopefully the shots will help calm down his symptoms. I will see him back as needed he voiced understanding agrees above plan he will modify his activities try to avoid those activities that have aggravated his symptoms recently he was doing very well after the last round of injections. Will call for any further problems difficulties or questions. Not available 03/27/2023 15:23:32 06/26/2023 06/26/2023 Patient has mild primary osteoarthritis of both shoulders he has had a a recent left rotator cuff strain while trying to lift a heavy door. Does not appear he has any weakness no loss of motion no other pathology I think he just aggravated his shoulder. His right shoulder continues to bother him due to mild primary osteoarthritis and tendinitis here as well but not as bad as the left. Under sterile conditions I injected the patient's bilateral shoulder joints in the office with 4 cc 0.5% Marcaine and 20 mg of Kenalog each. Patient tolerated procedure well. The patient also has moderate primary osteoarthritis both knee joints as described under sterile conditions I injected the patient's bilateral knee joints in the office with 4 cc 0.5% Marcaine and 20 mg of Kenalog each. I will see him back as needed we can do his injections again in 3 months if necessary. He was wondering about physical therapy we discussed this in detail today I think this would benefit his knees and both shoulders we will get him an order for physical therapy for knees and shoulders. They can work on range of motion strengthening etc.. He voiced understanding and agrees above plan call for any further problems difficulties or questions. Will also continue with zhdm-iat-vxzouec anti-inflammatory medication as previously use by the patient. Not available 06/26/2023 11:57:07 09/25/2023 09/25/2023 The patient has bilateral shoulder pain due to chronic impingement rotator cuff tendinitis he could have a significant partial-thickness tear on the left shoulder after heavy lifting strain a few months ago. His pain has persisted despite conservative measures. For pain relief he wanted shots of cortisone both shoulders therefore under sterile conditions I injected the patient's bilateral shoulder subacromial spaces in the office with 4 cc 0.5% Marcaine and 20 mg of Kenalog each. The patient tolerated the procedures well. Because he has persistent significant pain in the left shoulder after heavy lifting injury we will get an MRI scan to further assess the rotator cuff tendon. He will see Dr. Millan back with the results to talk about possible surgical options. The patient also has moderately severe primary osteoarthritis both knees the right patellofemoral articulation is giving him more issues with a locking sensation and pain on the medial side of the right patellofemoral articulation. He does have a bony ossicle that maybe causing mechanical symptoms he is wondering about possible surgical excision. I have told him that because he has significant osteoarthritis tricompartmental in nature this may not give him the relief he is looking for but he does report this is his main source of aggravation and pain in the right knee. He has pain in both knees due to his primary osteoarthritis. He wants to talk to Dr. Millan about his right knee patellofemoral articulation mechanical symptoms. We will get him set up to see him in the near future. In the meantime he wanted both knees injected therefore under sterile conditions I injected the patient's bilateral knee joints in the office today with 4 cc 0.5% Marcaine and 20 mg of Kenalog each. The patient tolerated procedure well. The patient voiced understanding agrees above plan he will call for any further problems difficulties or questions. The patient has been through physical therapy for the above issues and continues to have significant problems with his left shoulder and right knee. Not available 09/25/2023 12:20:08 10/15/2023 10/15/2023 68-year-old male presents for evaluation of his left shoulder. He reports pain for the past 3 months when he was lifting a barn door. He has had soreness in the shoulder especially with lifting overhead motion since then. He was previously seeing Gianni CRONIN. He did a course physical therapy without significant improvement. He also had a cortisone injection which helped a little bit. He currently rates pain 6/10. He is right-hand dominant. 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 He does endorse pain at night when he sleeps on that side. Review of systems per patient questionnaire Physical exam: He has soreness over the anterolateral shoulder. Range of motion 150/30/lower lumbar. 5/5 rotator cuff strength. Positive Armand's. Positive Neer and Alba, negative Serena's, negative Speed's Yergason's. MRI was reviewed, demonstrating a full-thickness tear of the insertion of the supraspinatus. He has fluid around the biceps and it is perched on the edge of the groove. He has AC joint arthrosis. No fatty infiltration or atrophy We discussed that he has good shoulder range of motion and good strength. If he is able to tolerate his activities and modify his activities, then we do not necessarily need to do any surgery. We discussed that surgery for rotator cuff repair comes with a extended period of downtime, which he does not want. We will continue conservative management with meloxicam and physical therapy. He may follow-up as needed after the course treatment if no improvement, or if he decides to proceed with surgical intervention. [email or web address] Not available 10/16/2023 00:01:03 Plan of Treatment Reminders Order Date Submit Date Provider Last Modified By Organization Details Last Modified Time Details Appointments None recorded. Lab None recorded. Referral physical therapist referral - [facility] TREAT 2023 024 [email or web address] [facility] [place], [address], [place], [address], 4 23:19:56 physical therapist referral 2023 024 [email or web address] Not available 17:15:29 physical therapist referral - please contact patient 2023 024 [facility] [place], [address], [place], [address], 4 11:20:25 Procedures injection/ aspiration joint/burs a (PROC) - in office procedure, administer ed by provider 2023 024 In-Office Order, Internal Use Only DO Not Attach Compendium DO Not Attach Compendium, Do Not Delete/merge, [id number] 4 12:21:05 injection/ aspiration joint/burs a (PROC) - in office procedure, administer ed by provider 2023 024 In-Office Order, Internal Use Only DO Not Attach Compendium DO Not Attach Compendium, Do Not Delete/merge, 4 12:21:05 injection/ aspiration joint/burs a (PROC) - in office procedure, administer ed by provider 2023 024 [email or web address] In-Office Order, Internal Use Only DO Not Attach Compendium DO Not Attach Compendium, Do Not Delete/merge, 4 11:51:34 injection/ aspiration joint/burs a (PROC) - in office procedure, administer ed by provider 2023 024 [email or web address] In-Office Order, Internal Use Only DO Not Attach Compendium DO Not Attach Compendium, Do Not Delete/merge, 4 11:51:33 injection/ aspiration joint/burs a (PROC) 2023 024 [email or web address] In-Office Order, Internal Use Only DO Not Attach Compendium DO Not Attach Compendium, Do Not Delete/merge, 4 14:27:01 injection/ aspiration joint/burs a (PROC) 2023 024 [email or web address] In-Office Order, Internal Use Only DO Not Attach Compendium DO Not Attach Compendium, Do Not Delete/merge, 4 14:27:01 injection/ aspiration joint/burs a (PROC) - in office procedure, administer ed by provider 2022 023 [email or web address] 1 In-Office Order, Internal Use Only DO Not Attach Compendium DO Not Attach Compendium, Do Not Delete/merge, 3 10:37:53 injection/ aspiration joint/burs a (PROC) - in office procedure, administer ed by provider 2022 023 [email or web address] In-Office Order, Internal Use Only DO Not Attach Compendium DO Not Attach Compendium, Do Not Delete/merge, 3 11:02:44 Surgeries None recorded. Imaging MRI, shoulder, w/o contrast - please contact patient to schedule 2023 [facility], [address] [place] [address] Dr, [place], [address], 4 21:09:28 XR, shoulder 2023 024 [facility] [place], [address], [place], [address], 4 15:49:00 XR, knee 2023 024 [facility] [place], [address], [place], [address], 4 15:49:00 Medication Orders Mobic 15 mg tablet 2023 [email or web address] [facility]16838, [address], [place], [id number], 4 23:19:56 Kenalog 10 mg/mL suspension for injection 2023 024 [id number] 18 [facility], [address], [place], [id number], 4 07:51:17 Marcaine (PF) 0.25 % (2.5 mg/mL) injection solution 2023 024 [facility] #61495, [address], [place], [id number], 4 13:47:55 Kenalog 10 mg/mL suspension for injection 2023 024 [id number] 18 [facility] #17400, [address], [place], [id number], 4 07:51:17 Marcaine (PF) 0.5 % (5 mg/mL) injection solution 2023 024 Not available 4 13:47:55 Kenalog 10 mg/mL suspension for injection 2023 024 [email or web address] Not available 4 11:54:08 Marcaine (PF) 0.5 % (5 mg/mL) injection solution 2023 024 [email or web address] Not available 4 13:19:47 Kenalog 10 mg/mL suspension for injection 2023 024 [email or web address] 1 Not available 4 11:54:08 Marcaine (PF) 0.5 % (5 mg/mL) injection solution 2023 024 [email or web address] Not available 4 13:19:47 bupivacain e HCl 0.5 % (5 mg/mL) injection solution 2023 024 [email or web address] 1 [facility], [address] [place] [address], [id number], 4 11:49:42 Kenalog 10 mg/mL suspension for injection 2023 024 [email or web address] 1 [facility], [address] [place] [address], [id number], 4 11:54:08 bupivacain e HCl 0.5 % (5 mg/mL) injection solution 2023 024 [email or web address] 1 [facility], [address] [place] [address], [id number], 4 11:49:42 Kenalog 10 mg/mL suspension for injection 2023 024 [email or web address] 1 [facility] #59130, [address], [place], [id number], 4 11:54:08 Kenalog 10 mg/mL suspension for injection 2022 023 [email or web address] 1 [facility] #83644, [address], [place], [id number], 4 11:54:08 ropivacain e (PF) 5 mg/mL (0.5 %) injection solution 2022 023 [id number] 18 [facility] #71046, [address], [place], [id number], 4 07:51:18 Kenalog 10 mg/mL suspension for injection 2022 023 [email or web address] 1 [facility] #71524, [address], [place], [id number], 4 11:54:08 ropivacain e (PF) 5 mg/mL (0.5 %) injection solution 2022 023 [id number] 18 [facility] #56037, [address], [place], [id number], 4 07:51:17 Patient TargetsNo targets recorded. Patient InstructionsNo instructions recorded. Reason for Referral Physical Therapist Referral for Bilateral shoulder osteoarthritis Referring Physician: Gianni Garay, Orthopedic Surgery, Encounter Date: 06/26/2023 Physical Therapist Referral for Bilateral osteoarthritis of knees please contact patient Referring Physician: Gianni Garay, Orthopedic Surgery, Encounter Date: 06/26/2023 Physical Therapist Referral for Tendinitis of left rotator cuff [facility]AL [facility] TREAT Referring Physician: Enrico Millan, Orthopedic Surgery, Encounter Date: 10/15/2023 Results Created Date Observation Date Name Description Value Unit Range Abnormal Flag Note LastModifiedBy Organization Detail LastModifiedTime 03/27/19 24 XR, knee No observ ation record ed. [facility] [place] [address], [place], [address], 03/27/2023 15:24:49 03/27/19 24 XR, shoul larry No observ ation record ed. [facility] [place] [address], [place], [address], 03/27/2023 15:28:28 10/01/19 24 MRI, shoul larry, w/o contr ast [facility] [address] [address] Patien t Name: MIGUEL NGO Access ion #: [id number] Sex: M : 1955 9 Dictat ed By: mEir Shelton ms Attend ing Physic rupal: GIANNI GARAY Orderi ng Physic rupal: GIANNI GARAY Exam Date: 2023 15:12 PM Exam Name: MRI SHOULD ER LT WO Admitt ing Diagno sis(es ): CLINIC AL INDICA TION: 68 years old, Male; pain. COMPAR TARIK: None TECHNI QUE: Multip lanar, multis equenc e MRI of the left should er was perfor med withou t contra st. Contra st: None FINDIN GS: Glenoh umeral joint: There is no fractu re or bone marrow edema. Alignm ent is mainta ined. Chondr al thinni ng in the anthony l head. There is small glenoh umeral joint effusi on. No signif icant synovi tis. Acromi oclavi cular joint: There is modera te acromi oclavi cular joint capsul ar hypert rophy and joint effusi on. The acromi on is not downsl oping. Rotato r cuff and bursae : There is a full-t hickne ss tear of supras pinatu s measur ing approx imatel y 1.3 cm. Inters titial tear of the tendon at the myoten dinous juncti on which contac ts the thicke liliana AC joint capsul e. There is a partia l-thic kness high-g rade, near full-t hickne ss tear of infras pinatu s at its greate r tubero sity insert ion. Partia l-thic kness tear involv ing the crania l most fibers of subsca pulari s. Teres minor tendon is intact . There is no region al muscle atroph y. Mild edema in the teres minor muscle . There is fluid in the subacr omial subdel toid bursa. Biceps tendon and glenoi d labrum : The long head biceps tendon is sublux ated medial ly from the bicipi lianne groove . There is fluid in the tendon sheath . The labrum is unrema rkable . IMPRES RAFAT: Page 1 [facility] [address] [address] Patien t Name: MIGUEL NGO [facility] ion #: [id number] Sex: M : 1955 7 Dictat ed By: Emir Shelton ms Attend ing Physic rupal: JARROD ARCHER [facility] Physic rupal: GIANNI GARAY Exam Date: 2023 15:12 PM Exam Name: MRI SHOULD ER LT WO Admitt ing Diagno sis(es ): 1. Full-t hickne ss tear supras pinatu s from its insert ion, and inters titial tear at the myoten dinous juncti on. High-g rade partia l-thic kness, near full-t hickne ss tear of infras pinatu s at its insert ion. Partia l-thic kness tear of the subsca pulari s involv ing the crania l most fibers . No muscle atroph y. 2. Modera te AC joint arthro sis. 3. Medial sublux ation of the proxim al long head biceps tendon from the bicipi lianne groove . Fluid disten tion of the tendon sheath may be decomp ressin g from the glenoh umeral joint, physio logic in etiolo gy, or may reflec t tenosy noviti s. 4. Mild edema of the teres minor muscle may reflec t strain or denerv ation. HS:Y Electr onical ly Signed by: Emir Shelton ms at 2023 20:06: 15 PM Page 2 [email or web address] [facility] (Imaging) [address] [place], [address], 10/02/2023 09:53:29 Result Notes Documentation Provider Name and Address Organization Details Recorded Time Mri, Shoulder, W/o Contrast : [facility] [address] [place] [address] Patient Name: MIGUEL SADLER Sex: M : 1955 Dictated By: Makenna Robins Attending Physician: GIANNI GARAY Ordering Physician: GIANNI GARAY Exam Date: 10/01/2023 15:12 PM Exam Name: MRI SHOULDER LT WO Admitting Diagnosis(es): CLINICAL INDICATION: 68 years old, Male; pain. COMPARISON: None TECHNIQUE: Multiplanar, multisequence MRI of the left shoulder was performed without contrast. Contrast: None FINDINGS: Glenohumeral joint: There is no fracture or bone marrow edema. Alignment is maintained. Chondral thinning in the humeral head. There is small glenohumeral joint effusion. No significant synovitis. Acromioclavicular joint: There is moderate acromioclavicular joint capsular hypertrophy and joint effusion. The acromion is not downsloping. Rotator cuff and bursae: There is a full-thickness tear of supraspinatus measuring approximately 1.3 cm. Interstitial tear of the tendon at the myotendinous junction which contacts the thickened AC joint capsule. There is a partial-thickness high-grade, near full-thickness tear of infraspinatus at its greater tuberosity insertion. Partial-thickness tear involving the cranial most fibers of subscapularis. Teres minor tendon is intact. There is no regional muscle atrophy. Mild edema in the teres minor muscle. There is fluid in the subacromial subdeltoid bursa. Biceps tendon and glenoid labrum: The long head biceps tendon is subluxated medially from the bicipital groove. There is fluid in the tendon sheath. The labrum is unremarkable. IMPRESSION: Page [address] [place] [address] Patient Name: MIGUEL SADLER Sex: M : 1955 Dictated By: Makenna Robins Attending Physician: JARROD ARCHER Ordering Physician: GIANNI GARAY Exam Date: 10/01/2023 15:12 PM Exam Name: MRI SHOULDER LT WO Admitting Diagnosis(es): 1. Full-thickness tear supraspinatus from its insertion, and interstitial tear at the myotendinous junction. High-grade partial-thickness, near full-thickness tear of infraspinatus at its insertion. Partial-thickness tear of the subscapularis involving the cranial most fibers. No muscle atrophy. 2. Moderate AC joint arthrosis. 3. Medial subluxation of the proximal long head biceps tendon from the bicipital groove. Fluid distention of the tendon sheath may be decompressing from the glenohumeral joint, physiologic in etiology, or may reflect tenosynovitis. 4. Mild edema of the teres minor muscle may reflect strain or denervation. HS:Y Page 2 ERNESTO Romero, [place] [facility] [employer] [facility] 10/02/2023 09:53:29 Problems Name Problem SNOMED Code Status Onset Date Resolution Date Notes Provider Name and Address Organization Details Recorded Time Bilateral osteoarthr itis of knees 1909432137875 07 Active 2021 Not Available [facility] 3 13:36:02 Active or passive immunizati on Active 2021 Not Available [facility] 3 13:36:02 Peptic ulcer 56924591 Active 2020 Not Available [facility] 3 13:36:02 Constipati on 43479579 Active Not Available [facility] 3 13:36:02 Partial thickness rotator cuff tear 428578695 Active 2021 Not Available [facility] 3 13:36:03 Chronic constipati on 860385596 Active 2021 Not Available [facility] 3 13:36:03 Osteoarthr itis of knee 900911695 Active Not Available [facility] 3 13:36:03 Gastroesop hageal reflux disease without esophagiti s 794882130 Active 2021 Not Available [facility] 3 13:36:03 Abnormal weight loss 038774383 Active 2021 Not Available [facility] 3 13:36:03 Edema 179235987 Active 2021 Not Available [facility] 3 13:36:03 Adult health examinatio n Active 2020 Not Available [facility] 3 13:36:03 Low back pain 133970923 Active 2021 Not Available [facility] 3 13:36:03 Current tear of medial cartilage AND/OR meniscus of knee Active Not Available [facility] 3 13:36:03 Current tear of lateral cartilage AND/OR meniscus of knee Active Not Available [facility] 3 13:36:03 Vitamin D deficiency 53894221 Active 2020 Not Available [facility] 3 13:36:03 Depressive disorder 59821328 Active 2020 Not Available [facility] 3 13:36:03 Migraine 82253363 Active 2020 Not Available [facility] 3 13:36:03 Osteoarthr itis 594252714 Active Not Available [facility] 3 13:36:04 Anxiety 59298466 Active 2020 Not Available [facility] 3 13:36:04 Cervical radiculopa thy 66722419 Active 2021 Not Available [facility] 3 13:36:04 Essential hypertensi on 34958331 Active 2020 Not Available [facility] 3 13:36:04 Derangemen t of knee 95049708 Active Not Available [facility] 3 13:36:04 Epigastric pain 65102162 Active 2021 Not Available [facility] 3 13:36:04 Neck pain 71067533 Active 2021 Not Available [facility] 3 13:36:04 Spinal stenosis in cervical region 81884583 Active 2020 Not Available [facility] 3 13:36:04 Fatigue 14542524 Active 2021 Not Available [facility] 3 13:36:04 Bilateral shoulder joint pain 5364588645630 9104 Active 2022 KIMBERLEE Abdalla null, [facility] [employer] [facility] 3 10:35:15 Pain of bilateral knee joints 0640609061608 04 Active 2022 Korin Mohr null, [facility] [employer] [facility] 3 11:01:30 Bilateral rotator cuff tendinitis 4844000187934 9104 Active 2022 MEHRDAD Avila [address], [place], [address] , [facility] [employer] [facility] [employer] [facility] 3 11:10:35 Bilateral shoulder osteoarthr itis 0058774279480 08 Active 2023 MEHRDAD Avila [address], [place], [address] , [facility] [employer] [facility] 4 15:29:06 Tendinitis of left rotator cuff 7706640558416 9101 Active 2023 CHELO Linton null, [facility] [employer] [facility] 4 14:25:18 Problem Notes None recorded. Procedures Surgical History Date Name Laterality Status Provider Name and Address Organization Details Recorded Time 08/23/19 Ortho - Cortisone Injection completed Dakota Driver MD [address], [place], [address], [facility] 08/22/2022 10:11:43 02/29/20 21 EGD completed Not Available [facility] 13:35:28 02/29/20 21 Colonoscopy completed Not Available [facility] 05/16/19 13:35:28 Imaging Results None recorded. Procedure Notes None recorded. Medical Equipment None Reported. Allergies No known drug allergies Medications Name Sig Start Date Stop Date Status Note LastModified by Organization Details LastModified Time BD Luer-Presley Syringe 3 mL 23 x 1 USE TO INJECT TESTOSTE [facility] active Not Available Not Available No t Available quetiapine 25 mg tablet TAKE 1 TABLET BY MOUTH EVERY DAY AT BEDTIME 08/22 completed Not Available Not Available Not Available celecoxib 200 mg capsule TAKE 1 CAPSULE BY MOUTH EVERY DAY active Not Available Not Available No t Available amoxicilli n 500 mg capsule 09/06 completed Not Available Not Available Not Available prednisone 10 mg tablet 08/22 completed Not Available Not Available Not Available paroxetine 10 mg tablet 09/24 completed Not Available Not Available Not Available lisinopril 20 mg-hydroch lorothiazi de 12.5 mg tablet TAKE 2 TABLETS BY MOUTH DAILY 09/24 completed Not Available Not Available Not Available tizanidine 4 mg tablet active Not Available Not Available Not Available metoprolol succinate ER 50 mg tablet,ext ended release 24 hr active Not Available Not Available Not Available sumatripta n 100 mg tablet TAKE 1 TABLET BY MOUTH TWICE DAILY NEEDED FOR MIGRAINE . MAX OF 2 TABLETS IN 24 HOURS active Not Available Not Available No t Available hydrocodon e 5 mg-acetami nophen 325 mg tablet TAKE 1 TABLET BY MOUTH EVERY 6 HOURS NEEDED FOR ACUTE PAIN 08/22 completed Not Available Not Available Not Available meloxicam 15 mg tablet TAKE 1 TABLET BY MOUTH EVERY DAY 2024 active Not Available Not Available Not Avai lable sucralfate 1 gram tablet 08/22 completed Not Available Not Available Not Available ondansetro n HCl 4 mg tablet TAKE 1 TO 2 TABLETS BY MOUTH NEEDED FOR NAUSEA 07/26 completed Not Available Not Available Not Available bupivacain e HCl 0.5 % (5 mg/mL) injection solution Take 40 mg by injectio n route. 09/244 completed Not Available Not Available Not Available clonazepam 0.5 mg tablet TAKE 1 TABLET BY MOUTH DAILY NEEDED FOR ANXIETY active Not Available Not Available No t Available propranolo l ER 60 mg capsule,24 hr,extende d release TAKE 1 CAPSULE BY MOUTH EVERY DAY 08/22 completed Not Available Not Available Not Available testostero ne cypionate 100 mg/mL intramuscu lar oil 09/24 completed Not Available Not Available Not Available penicillin V potassium 500 mg tablet TK 1 T PO Q 6 H UNTIL GONE 11/15 completed Not Available Not Available Not Available acetaminop hen 300 mg-codeine 30 mg tablet TAKE 1 TABLET BY MOUTH EVERY 8 HOURS NEEDED FOR PAIN 04/27 completed Not Available Not Available Not Available ciprofloxa kalie 500 mg tablet TAKE 1 TABLET BY MOUTH TWICE DAILY 06/20 completed Not Available Not Available Not Available sulfametho xazole 800 mg-trimeth oprim 160 mg tablet TAKE 1 TABLET BY MOUTH TWICE DAILY active Not Available Not Available No t Available olanzapine 2.5 mg tablet TAKE 1 TABLET BY MOUTH EVERY DAY AT BEDTIME 09/24 completed Not Available Not Available Not Available hydrocodon e 10 mg-acetami nophen 325 mg tablet 11/15 completed Not Available Not Available Not Available tramadol 50 mg tablet Take 1 tablet 3 times a day by oral route. 08/22 completed Not Available Not Available Not Available amitriptyl ine 50 mg tablet TAKE 1 TABLET BY MOUTH EVERY NIGHT AT BEDTIME 09/24 completed Not Available Not Available Not Available pantoprazo le 20 mg tablet,del ayed release 08/22 completed Not Available Not Available Not Available prednisone 10 mg tablets in a dose pack Take 1 tab by mouth, 3 times a day for 3 daysTake 1 tab by mouth 2 times a day for 2 daysTake 1 tab by mouth once a day for 1 day 08/22 completed Not Available Not Available Not Available oxycodone- acetaminop hen 5 mg-325 mg tablet TAKE 1 TABLET BY MOUTH TWICE DAILY NEEDED FOR PAIN OR CHRONIC PAIN 08/22 completed Not Available Not Available Not Available amoxicilli n 875 mg tablet 08/22 completed Not Available Not Available Not Available famotidine 20 mg tablet 08/22 completed Not Available Not Available Not Available Hypodermic [place] 18 gauge x 1 1/2 USE DIRECTED . USE THIS NEEDLE ONLY TO DRAW UP MEDICATI ON BEFORE SWITCHIN G BACK TO THE GREEN 21G NEEDLE FOR INJECTIO N 08/22 completed Not Available Not Available Not Available tamsulosin 0.4 mg capsule TAKE 1 CAPSULE BY MOUTH AT BEDTIME 08/22 completed Not Available Not Available Not Available trazodone 100 mg tablet TAKE 1 TABLET BY MOUTH EVERY NIGHT AT BEDTIME 08/22 completed Not Available Not Available Not Available dicyclomin e 20 mg tablet 09/24 completed Not Available Not Available Not Available Kenalog 10 mg/mL suspension for injection Take 4 mL by injectio n route. 2023 active [facility]: [phone] 94-20 Not Available Not Available Not Available paroxetine 20 mg tablet Take 1 tablet every day by oral route. active Not Available Not Available No t Available pantoprazo le 40 mg tablet,del ayed release TAKE 1 TABLET BY MOUTH EVERY DAY 08/22 completed Not Available Not Available Not Available mirtazapin e 30 mg tablet 08/22 completed Not Available Not Available Not Available esomeprazo le magnesium 40 mg capsule,de layed release TAKE 1 CAPSULE BY MOUTH EVERY MORNING BEFORE BREAKFAS T active Not Available Not Available No t Available methylphen idate ER 20 mg tablet,ext ended release active Not Available Not Available Not Available hydrocorti sone acetate 30 mg rectal suppositor y UNWRAP AND INSERT 1 SUPPOSIT ORY RECTALLY TWICE DAILY NEEDED 09/24 completed Not Available Not Available Not Available mirtazapin e 45 mg tablet TAKE 1 TABLET BY MOUTH EVERY DAY AT BEDTIME 07/26 completed Not Available Not Available Not Available dextroamph etamine-am phetamine ER 10 mg 24hr capsule,ex tend release TAKE 1 CAPSULE BY MOUTH EVERY DAY IN THE MORNING 08/22 completed Not Available Not Available Not Available furosemide 20 mg tablet Take 1 tablet every day by oral route in the morning. active Not Available Not Available No t Available lidocaine HCl 20 mg/mL (2 %) injection solution Take 160 mg by injectio n route. 08/10 completed Not Available Not Available Not Available mirtazapin e 15 mg tablet TAKE 1-2 TABLET BY MOUTH EVERY DAY AT BEDTIME PRN active Not Available Not Available No t Available ergocalcif bassam (vitamin D2) 1,250 mcg (50,000 unit) capsule Take 1 capsule every week by oral route. 08/22 completed Not Available Not Available Not Available diazepam 10 mg tablet TAKE 1 TABLET BY MOUTH 1 HOUR PRIOR TO PROCEDUR E 08/22 completed Not Available Not Available Not Available lisinopril 10 mg-hydroch lorothiazi de 12.5 mg tablet TAKE 1 TABLET BY MOUTH DAILY active Not Available Not Available No t Available testostero ne cypionate 200 mg/mL intramuscu lar oil ADMINIST ER 0.5 ML IN THE MUSCLE 1 TIME A WEEK 08/22 completed Not Available Not Available Not Available oxycodone- acetaminop hen 7.5 mg-325 mg tablet TAKE 1 TABLET BY MOUTH TWICE DAILY NEEDED FOR PAIN active Not Available Not Available No t Available BD Luer-Presley Syringe 3 mL 21 gauge x 1 03/18 USE DIRECTED 08/22 completed Not Available Not Available Not Available hydrocodon e 10 mg-acetami nophen 650 mg tablet 11/15 completed Not Available Not Available Not Available hydroxyzin e HCl 10 mg tablet TAKE 1 TABLET BY MOUTH EVERY DAY NEEDED 09/24 completed Not Available Not Available Not Available topiramate 100 mg tablet 08/22 completed Not Available Not Available Not Available sertraline 50 mg tablet TAKE 1 TABLET BY MOUTH EVERY DAY IN THE MORNING 07/26 completed Not Available Not Available Not Available doxycyclin e hyclate 100 mg tablet TAKE 1 TABLET BY MOUTH TWICE DAILY 04/27 completed Not Available Not Available Not Available naproxen 500 mg tablet 08/22 completed Not Available Not Available Not Available diazepam 5 mg tablet TAKE 3 TABLETS BY MOUTH ONCE 1 HOUR PRIOR TO PROCEDUR E 08/22 completed Not Available Not Available Not Available amoxicilli n 875 mg-potassi um clavulanat e 125 mg tablet 08/22 completed Not Available Not Available Not Available rizatripta n 5 mg tablet TAKE 1 TABLET BY MOUTH NEEDED FOR MIGRAINE . MAY REPEAT IN 2 HOURS IF NEEDED TIMES ONE DOSE active Not Available Not Available No t Available testostero ne 1 % (50 mg/5 gram) transderma l gel packet APPLY CONTENTS OF 1 PACKET TOPICALL Y EVERY MORNING DIRECTED 08/22 completed Not Available Not Available Not Available escitalopr am 10 mg tablet TAKE 1 TABLET BY MOUTH EVERY DAY AT BEDTIME 11/22 completed switch to paxil Not Available Not Available Not Available bupropion HCl XL 300 mg 24 hr tablet, extended release TAKE 1 TABLET BY MOUTH EVERY DAY IN THE MORNING 09/24 completed Not Available Not Available Not Available bupropion HCl XL 150 mg 24 hr tablet, extended release TAKE 1 TABLET BY MOUTH TWICE DAILY 09/24 completed Not Available Not Available Not Available Marcaine (PF) 0.5 % (5 mg/mL) injection solution Take 8 mL by injectio n route. 2023 active Not Available Not Available Not Avai lable Marcaine (PF) 0.25 % (2.5 mg/mL) injection solution Take 8 mL by injectio n route. 2023 active Not Available Not Available Not Avai lable topiramate 50 mg tablet active Not Available Not Available Not Available duloxetine 30 mg capsule,de layed release 11/15 completed Not Available Not Available Not Available Boostrix Tdap 2.5 Lf unit-8 mcg-5 Lf/0.5 mL intramuscu lar syringe 11/15 completed Not Available Not Available Not Available lidocaine (PF) 10 mg/mL (1 %) injection solution In office injectio n administ ered by the provider 04/27 completed [facility]: [phone] 76-17 Not Available Not Available Not Available peg 3350-elect rolytes 236 gram-22.74 gram-6.74 gram-5.86 gram solution MIX AND DRINK DIRECTED 04/27 completed Not Available Not Available Not Available sodium,pot assium,mag sulfates 17.5 gram-3.13 gram-1.6 gram oral soln MIX AND DRINK DIRECTED 08/22 completed Not Available Not Available Not Available buprenorph ine 5 mcg/hour weekly transderma l patch APPLY 1 PATCH TOPICALL Y TO THE SKIN EVERY 7 DAYS FOR CHRONIC PAIN active Not Available Not Available No t Available buprenorph ine 10 mcg/hour weekly transderma l patch APPLY 1 PATCH TOPICALL Y TO THE SKIN EVERY 7 DAYS FOR CHRONIC PAIN active Not Available Not Available No t Available ropivacain e (PF) 5 mg/mL (0.5 %) injection solution Take 40 mg by injectio n route. 2022 active [facility] 45134-5 64-01 Not Available Not Available Not Available Linzess 145 mcg capsule TAKE 1 CAPSULE BY MOUTH EVERY DAY active Not Available Not Available No t Available Linzess 290 mcg capsule TAKE 1 CAPSULE BY MOUTH EVERY MORNING AT LEAST 30 MINS BEFORE BREAKFAS T ON AN EMPTY STOMACH. SWALLOW WHOLE. DO NOT OPEN CAPSULE OR CHEW active Not Available Not Available No t Available Belsomra 20 mg tablet 08/22 completed Not Available Not Available Not Available naloxone 4 mg/actuati on nasal spray 1 SPRAY BY NASAL ROUTE NEEDED FOR OPIOID REVERSAL . MAY REPEAT EVERY 2 TO 3 MIINUTES IN ALTERNAT ING NOSTRILS active Not Available Not Available No t Available Trintellix 10 mg tablet 08/22 completed Not Available Not Available Not Available Trulance 3 mg tablet TAKE 1 TABLET BY MOUTH DAILY active Not Available Not Available No t Available ID NOW COVID-19 Test Kit TEST DIRECTED TODAY 04/27 completed Not Available Not Available Not Available Vitals Date Recorded Body height Provider Name an d Address Organization Details Last Updated DateTime 03/27/2023 187.96 cm Korin [employer] 03/27/2023 14:23:31 Date Recorded Body height Body mass index (BMI) Body weight Provider Name and Address Organization Details Last Updated DateTime 06/26/2023 187.96 cm 24.4 kg/m2 [address] [facility] [employer] 06/26/2023 11:33:16 Date Recorded Body height Body mass index (BMI) Body weight Provider Name and Address Organization Details Last Updated DateTime 09/25/2023 187.96 cm 24.4 kg/m2 39143.55 g KIMBERLEE Abdalla [employer] 09/25/2023 11:49:18 Date Recorded Body height Body mass index (BMI) Body weight Provider Name and Address Organization Details Last Updated DateTime 10/15/2023 187.96 cm 24.4 kg/m2 05178.55 g CHELO Linton [employer] 10/15/2023 14:23:59 Date Recorded Body height Body mass index (BMI) Body weight Provider Name and Address Organization Details Last Updated DateTime 12/26/2022 187.96 cm 23.4 kg/m2 99577.81 g Meghan Bañuelos, ATC L [place] [facility] 12/26/2022 10:34:26 Social History Question Answer Notes LastModified by Organizat ion Details LastModified Time Tobacco Smoking Status Never Smoker Not Available [employer] 05/15/2022 13:35:20 Do You Have An Advance Directive? No [id number] Information not available 05/15/2022 Do You Wear A Helmet When Biking? No MIGRATION.39331 95807 Information not available 05/15/2022 Are You Blind Or Do You Have Difficulty Seeing? No MIGRATION.22940 26910 Information not available 05/15/2022 What Is Your Level Of Caffeine Consumption? Moderate MIGRATION.94941 87392 Information not available 05/15/2022 In The 14 Days Before Symptom Onset, Have You Had Close Contact With A Laboratory-confir med COVID-19 While That Case Was Ill? No MIGRATION.78341 86091 Information not available 05/15/2022 In The 14 Days Before Symptom Onset, Have You Had Close Contact With A Person Who Is Under Investigation For COVID-19 While That Person Was Ill? No MIGRATION.08424 92477 Information not available 05/15/2022 Are You Deaf Or Do You Have Serious Difficulty Hearing? No MIGRATION.83000 86000 Information not available 05/15/2022 What Type Of Diet Are You Following? REGULAR MIGRATION.34089 88109 Information not available 05/15/2022 What Is The Highest Grade Or Level Of School You Have Completed Or The Highest Degree You Have Received? [id number] MIGRATION.28780 72046 Information not available 05/15/2022 Have There Been Any Changes To Your Family Or Social Situation? No MIGRATION.59590 84637 Information not available 05/15/2022 What Is The Fluoride Status Of Your Home? Fluoridated MIGRATION.39116 20605 Information not available 05/15/2022 Do You Use Insect Repellent Routinely? Yes MIGRATION.99683 91780 Information not available 05/15/2022 Where Do You Live? [place] MIGRATION.23244 05921 Information not available 05/15/2022 Do You Have A Medical Power Of Speech And Hearing Clinic Director? No MIGRATION.69468 24699 Information not available 05/15/2022 What Was The Date Of Your Most Recent Tobacco Screening? 08/29/2021 MIGRATION.07004 40755 Information not available 05/15/2022 Have You Ever Been Counseled For Unhealthy Alcohol Use? No MIGRATION.46466 59790 Information not available 05/15/2022 Do You Have Any Pets? No MIGRATION.16387 23219 Information not available 05/15/2022 What Is Your Relationship Status? MIGRATION.58253 78164 Information not available 05/15/2022 Do You Use Your Seat Belt Or Car Seat Routinely? Yes MIGRATION.67552 70229 Information not available 05/15/2022 Do You Have Smoke And Carbon Monoxide Detectors In Your Home? Yes MIGRATION.45480 00435 Information not available 05/15/2022 Are You Passively Exposed To Smoke? No MIGRATION.42534 20549 Information not available 05/15/2022 Are There Any Smokers In Your House? No MIGRATION.96844 57547 Information not available 05/15/2022 Do You Use Sunscreen Routinely? No MIGRATION.56586 70321 Information not available 05/15/2022 Has Tobacco Cessation Counseling Been Provided? No MIGRATION.29621 40005 Information not available 05/15/2022 Have You Recently Traveled Abroad? No MIGRATION.84951 35828 Information not available 05/15/2022 Do You Have Difficulty Walking Or Climbing Stairs? No MIGRATION.02699 05598 Information not available 05/15/2022 Do You Have Any Dietary Restrictions? No MIGRATION.41940 95198 Information not available 05/15/2022 Sex: Male Functional Status Question Answer Note LastModified by Organizat ion Details LastModified Time Do you use any illicit or recreational drugs? No MIGRATION.442736 1509 Information not available 05/15/2022 Do you or have you ever used any other forms of tobacco or nicotine? No MIGRATION.822596 7872 Information not available 05/15/2022 What is your level of alcohol consumption? None [email or web address] Information not available 08/22/2022 Do you have transportation difficulties? No MIGRATION.988549 1875 Information not available 05/15/2022 Are you able to walk? YESWOREST MIGRATION.462954 0919 Information not available 05/15/2022 Do you have difficulty doing errands alone? No MIGRATION.284005 3210 Information not available 05/15/2022 Are you able to care for yourself? 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 No MIGRATION.614666 3096 Information not available 05/15/2022 What is your exercise level? None MIGRATION.955577 2047 Information not available 05/15/2022 Mental Status Question Answer Note LastModified by Organizat ion Details LastModified Time Do you feel stressed (tense, restless, nervous, or anxious, or unable to sleep at night)? [id number] MIGRATION.[id number] 26 Information not available 05/15/2022 Do you have difficulty concentrating, remembering or making decisions? No MIGRATION.58452705 26 Information not available 05/15/2022 Family History Relationship Description Onset Age of this Age Resolved Age Notes LastModified by Organization Details LastModified Time Mother Essential hypertension MIGRATION.[id number] Not available 05/15/2022 13:35:28 Unspecified Relation Kidney disease MIGRATION.728 [id number] Not available 05/15/2022 13:35:28 Mother Heart disease [email or web address] Not available 09/14 11:58:48 Mother Hypertensive disorder [email or web address] Not available 09/14 11:59:01 Medical History Condition Response ULCERS Y ARTHRITIS Y USE OF NSAIDS Y GI PROBLEMS Y HYPERTENSION Y Immunizations Vaccine Type Date Status Note Provider Nam e and Address Organization Details Recorded Time COVID-19, mRNA, LNP-S, PF, 30 mcg/0.3 mL dose 1 completed Not Available [facility] 05/15/2022 13:38:16 COVID-19, mRNA, LNP-S, PF, 30 mcg/0.3 mL dose 1 completed Not Available [facility] 05/15/2022 13:38:16 Tdap 5 completed Not Available [facility] 05/15/2022 13:38:16 Pneumococcal conjugate PCV 13 1 completed Not Available [facility] 05/15/2022 13:38:17 Past Encounters Encounter ID Performer Location Encounter Start Date Encounter Closed Date Diagnosis/Indication Diagnosis SNOMED-CT Code Diagnosis ICD10 Code Diagnosis Note [id number] Tank Patten MD [facility] [address] [facility] [place] [address] 11/15/2020 00:00:00 11/15/2020 17:36:43 [id number] Dakota Driver MD [facility] [address] [facility] [address] [place] [address] 11/16/2020 00:00:00 11/16/2020 14:57:21 [id number] Tank Patten MD [facility] [address] [facility] [place] [address] 11/22/2020 00:00:00 11/22/2020 17:14:33 [id number] Tank Patten MD [facility] [address] [facility] [place] [address] 12/18/2020 00:00:00 12/18/2020 16:08:05 [id number] Tank Patten MD [facility] [address] [facility] [facility] [place] [address] 01/01/2021 00:00:00 01/01/2021 15:59:33 [id number] Dakota Driver MD [facility] [address] [place] [address] 01/09/2021 00:00:00 01/09/2021 14:33:56 [id number] Dakota Driver MD [facility] [address] [place] [address] 01/18/2021 00:00:00 01/18/2021 14:51:39 [id number] Tank Patten MD [facility] [address] [facility] [facility] [place] [address] 02/01/2021 00:00:00 02/01/2021 16:04:43 [id number] [facility] [address] [address] 02/19/2021 00:00:00 02/20/2021 09:17:24 [id number] [facility] [address] [address] 03/19/2021 00:00:00 03/19/2021 16:49:40 [id number] Tank Patten MD [facility] Internal Med [address] [address] 04/27/2021 00:00:00 04/27/2021 09:55:32 [id number] [facility] [address] [address] 05/28/2021 00:00:00 05/28/2021 16:44:34 [id number] _ATHN_MIGR ATION_1 _ATHENA_M IGRATION_ DEFAULT_1 _1 , 06/20/2021 00:00:00 06/20/2021 16:54:36 [id number] Dakota Driver MD [facility] [address] [place] [address] 06/29/2021 00:00:00 06/29/2021 16:06:25 [id number] Tank Patten MD [facility] Internal Med [address] [address] 07/26/2021 00:00:00 07/26/2021 14:39:34 [id number] _ATHN_MIGR ATION_1 _ATHENA_M IGRATION_ DEFAULT_1 _1 , 08/15/2021 00:00:00 08/15/2021 16:21:37 [id number] _ATHN_MIGR ATION_1 _ATHENA_M IGRATION_ DEFAULT_1 _1 , 08/29/2021 00:00:00 08/29/2021 16:08:46 [id number] Dakota Driver MD [facility] [address] [place] [address] 09/06/2021 00:00:00 09/06/2021 13:48:33 [id number] Dakota Driver MD [facility] [address] [place] [address] 08/22/2022 09:16:12 08/22/2022 10:03:21 Neck pain 92983831 M54.2 Partial th ickness rotator cuff tear 973514105 M75.101 Cervical radiculopathy 92681369 M54.12 [id number] Panfilo Baez MD [facility] [address] [place] [address] 12/26/2022 10:29:19 12/26/2022 11:10:38 Neck pain 65113581 M54.2 Partial th ickness rotator cuff tear 768369269 M75.101 Cervical radiculopathy 02454435 M54.12 Bilateral shoulder joint pain 9963623228 5753668 M25.511 M25.512 Pain of bi lateral knee joints 8746145281 28569 M25.561 M25.562 Bilateral osteoarthritis of knees 8033579419 03262 M17.0 Bilateral rotator cuff tendinitis 2105304859 5951499 M67.813 M67.500 [id number] Panfilo Baez MD [facility] [address] [place] [address] 03/27/2023 14:17:33 03/27/2023 15:15:21 Bilateral osteoarthritis of knees 3677124704 26116 M17.0 Bilateral shoulder joint pain 8646642624 5933899 M25.511 M25.512 Partial th ickness rotator cuff tear 690020366 M75.101 Bilateral rotator cuff tendinitis 0233652782 2427040 M67.813 M67.814 Pain of bi lateral knee joints 5323210129 13154 M25.561 M25.562 Bilateral shoulder osteoarthritis 5948331915 34803 M19.011 M19.998 [id number] Enrico Millan MD [facility] [address] [place] [address] 06/26/2023 11:29:21 06/26/2023 11:55:15 Bilateral osteoarthritis of knees 6113043725 49808 M17.0 Bilateral shoulder osteoarthritis 6574131442 67640 M19.011 M19.012 Bilateral shoulder joint pain 4780351381 6682015 M25.511 M25.512 Bilateral rotator cuff tendinitis 9704163183 0580461 M67.813 M67.814 Partial th ickness rotator cuff tear 390770879 M75.101 Pain of bi lateral knee joints 9577757652 00232 M25.561 M25.235 [id number] Enrico Millan MD [facility] [address] [place] [address] 09/25/2023 11:33:37 09/25/2023 12:22:07 Bilateral shoulder osteoarthritis 6331051976 98888 M19.011 M19.012 Bilateral shoulder joint pain 9261273369 8139255 M25.511 M25.512 Bilateral rotator cuff tendinitis 8292073051 6482317 M67.813 M67.814 Partial th ickness rotator cuff tear 234801408 M75.101 M75.102 Bilateral osteoarthritis of knees 7996860783 16020 M17.0 Pain of bi lateral knee joints 5994209524 65308 M25.561 M25.520 [id number] Enrico Millan MD [facility] [address] [place] [address] 10/15/2023 14:22:37 10/15/2023 14:43:52 Osteoarthritis 858732271 M19.012 Tendinitis of left rotator cuff 2521168137 5834281 M67.814 Health Concerns Section Related Observation LastModified by Organization Detai ls LastModified Time None Recorded Concern Status LastModified by Organization Details LastModified Time None Recorded Advance Directives Directive N: Payers Insurance Date Sequence Insurance Name Policy Number Policy Garcia Covered Member ID Garcia Member ID Guarantor Name 10/16/2023 1 [facility] (MEDICARE REPLACEMENT/ ADVANTAGE - PPO) [id number] Miguel Sadler [id number] Miguel Sadler Notes Date Note Type Note Provider Name and Address Organization Details Recorded Time 12/26/2022 text/html Patient returns complaining of bilateral shoulder pain he also has bilateral knee pain. Previous x-rays of the knees show moderately severe tricompartmental osteoarthritis. It has been a long time since he has had cortisone injections he would like to repeat these today denies any new problems or injuries with either knee. No effusion or swelling no erythema heat or other signs of infection. He has also seen Dr. Driver for both shoulders previously he was told he has impingement both shoulders with some mild osteoarthritis. He also has some chronic neck pains with stenosis he has had epidural steroid injections here which did not do much for him. He would like to continue with oral anti-inflammatories he is taking these and takes Celebrex. He states shoulders have started to bother him again the shots did work well for a while about 4 months ago. He still working this aggravates his shoulders he would like to have both shoulders injected again today. Denies any new symptoms no new trauma or injury. MEHRDAD Avila [address] [facility], [facility] [address], [place], [address], [place] [facility] 12/26/2022 11:10:54 03/27/2023 text/html Patient returns complaining of bilateral shoulder pain and bilateral knee pain the right shoulder hurts worse than the left. He states recently he was doing a kitchen remodel where he was working on the isa with his knees in a squatted position also using a large mallet to pound the isa into place. He was using his right arm for this this is aggravated his right shoulder more than left he was doing a lot heavy read head of activities. And was squatting for several hours a day. The patient by previous history has shot of cortisone in both shoulders and both knees this was done 3 months ago he was doing very well until this recent overuse type injury where he was doing this for several days in a row. He is due for new x-rays of both knees and both shoulders as it has been more than a year we will get new x-rays today in the meantime he comes in today requesting repeat cortisone injections. He does have impingement in both shoulders with some mild osteoarthritis right worse than left in the glenohumeral joint as well. Both knees also show mild to moderate primary osteoarthritis and shot of cortisone have helped him here as well. MEHRDAD Avila [address], [place], [address], [employer] [facility] 03/27/2023 15:29:41 06/26/2023 text/html Patient returns complaining of bilateral shoulder pain and bilateral knee pain. He has mild primary osteoarthritis of both shoulders right slightly worse than left he has had previous surgical intervention on the right shoulder but he does have chronic rotator cuff tendinitis and impingement both shoulders. Recently he strained his left shoulder while lifting a heavy door into a frame he has had more aching pain in left shoulder. Denies any loss of motion no weakness did not have a tearing or ripping sensation in the shoulder but does have some deep aching that radiates into the upper arm somewhat. He has more pain with overhead motion. He is tried some conservative measures on his own at home however symptoms continue. He wanted to have this injected today as well as the other shoulder and both knees. He got by with doing this 3 months ago this helped quite a bit. We have also talked about possible physical therapy he would like to proceed with therapy for shoulder I think this is good we can do his knees as well at his request. Denies any other new symptoms no new trauma or injury otherwise. Previous x-rays of both knees demonstrate moderate primary osteoarthritis particularly with narrowing in the medial and patellofemoral compartments with hypertrophic changes that do cause crepitation and some occasional locking sensation behind the kneecap on the right. He will manipulate his kneecap bit at rest and get that sensation to go away and then not have any problems for quite awhile. MEHRDAD Avila [address], [facility] [address], [place], [address], [employer] 06/26/2023 12:03:38 09/25/2023 text/html patient returns with bilateral knee pain and bilateral shoulder pain. These are chronic in nature however his left shoulder was aggravated significantly after heavy lifting injury where he strained his left shoulder. This has been bothering him significantly he is unable to go about his daily activities as he would like. We tried a shot of cortisone 3 months ago this helped everything both shoulders both knees except that his left shoulder did not get the relief that he got in the other shoulder and also he continues to have more pain there. He has trouble doing anything heavy or repetitive with a left shoulder has a hard time lifting his arm overhead can reach behind his back. 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 He states it does feel a little weak mostly because of the pain despite conservative measures his symptoms continue. I think we should consider an MRI scan he does have a little bit of narrowing of the subacromial space he also has some mild primary osteoarthritis of both shoulders and chronic tendinitis. The patient also has bilateral knee pain due to moderate primary osteoarthritis he is significant changes in the patellofemoral articulations. He does report that he gets a locking catching sensation in the right knee on the medial side of the patellofemoral joint. We reviewed his x-rays again today he does have a bony ossicle which appears to have been a possible previous large osteophyte that has fractured off at some point. He states certain motions cause a catching sensation and then he has a hard time with flexion and extension of his knee usually he can work it out after a few minutes and get it going again recently locked up for a couple of days. He denies any specific trauma or injury no locking sensation along the joint lines it appears to be in the patellofemoral articulation. This bony ossicle may be causing some symptoms here. He does have moderately severe primary osteoarthritis in both knee joints he would like both knee joints injected again today. MEHRDAD Avila [address] [facility], [facility] [address], [place], [address], [facility] [employer] 09/25/2023 12:21:42
--- OUTSIDE RECORDS SUMMARY | 2024-09-20 13:25 | XMS_ITS | Encounter Summary ---
Author Organization [facility] - [facility] Address [facility] [place] [address] Care Team Providers Care Hand Riveter Name Role Phone Melvin Ross MD Primary Care Provider [phone] Karime Johnston MD Unavailable [phone] Cortez Renee MD Unavailable [phone] Enrico Millan MD Unavailable [phone] Encounter Details Date Type Department Care Team (Latest Contact Info) Description 08/23/2023 Doctor At Workt Message Enc [facility] Medical Group Multispecialty Care - [place] [address] [address] [place] [address] [place] [address] [place] [address] [address] [place] [address] Blood test results Social History Tobacco Use Types Packs/Day Years [...] PM CDT 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 Gender Identity Male 07/14/2024 3:19 PM CDT [...] Description 10/25/2024 11:20 AM CDT Office Visit [facility] Mult[facility]pecialty Care - [place] [address] [address] [place] [address] Melvin Ross MD [address] [place] [address] documented as of this encounter Visit Diagnoses Not on filedocumented in this encounter Additional Health Concerns Assessment Noted Time PHQ-9 Depression Total Score: 12 024 11:07 AM CDT documented as of this encounter Care Teams Hand Riveter Relationship Specialty Start Date End Date Melvin Ross MD [address] [place] [address] PCP - General INTERNAL MEDICINE 08/23/21 [place] [address] [place] [phone] Consulting Physician UROLOGY 05/29/22 Cortez Renee MD 3 [place] [address] Surgeon NEUROLOGICAL SURGERY 05/29/22 Enrico Millan MD [address] [facility] [address] [place] [phone] Referring Physician SPORTS MEDICINE 01/21/24 documented as of this encounter
--- OUTSIDE RECORDS SUMMARY | 2024-09-20 13:25 | XMS_ITS | Encounter Summary ---
Author Organization [facility] - [facility] Address [facility] [place] [address] Care Team Providers Care Loom Tuner Name Role Phone Melvin Ross MD Primary Care Provider Karime Johnston MD Unavailable [phone] Cortez Renee MD Unavailable [phone] Enrico Millan MD Unavailable [phone] Encounter Details Date Type Department Care Team (Late st Contact Info) Description 03/29/2024 MyChart Message Enc [facility] Medical Group Multispecialty Care [place] [address] [place] [address] [address] [place] [address] [place] [address] [place] [address] [address] [place] [address] [facility] Social History Tobacco Use Types Packs/Day Years Used Date Smoking Tobacco: Never Smokeless Tobacco: Never Comments:counseled by Dr Shaorn olivier Alcohol Use Standard Drinks/Week Comments Yes [...] PM CDT 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 Gender Identity Male 07/14/2024 3:19 [...] Description 10/25/2024 11:20 AM CDT Office Visit [facility] Medical Group Multispecialty Care - [place] [address] [address] [place] [address] Melvin Ross MD [address] [place] [address] documented as of this encounter Visit Diagnoses Not on filedocumented in this encounter Additional Health Concerns Assessment Noted Time PHQ-9 Depression Total Score: 12 024 11:07 AM CDT documented as of this encounter Care Teams Loom Tuner Relationship Specialty Start Date End Date Melvin Ross MD [address] [place] [address] PCP - General INTERNAL MEDICINE 08/23/21 [place] [address]jas [address] [place] [phone] Consulting Physician UROLOGY 05/29/22 Cortez Renee MD 3 [place] [address] Surgeon NEUROLOGICAL SURGERY 05/29/22 Enrico Millan MD [address] [facility] [address] [place] [phone] Referring Physician SPORTS MEDICINE 01/21/24 documented as of this encounter
--- OUTSIDE RECORDS SUMMARY | 2024-09-20 13:25 | XMS_ITS | Encounter Summary ---
Author Organization [facility] Address [facility] [place] [address] Care Team Providers Care Jewelry Coater Name Role Phone Melvin Ross MD Primary Care Provider [phone] Karime Johnston MD Unavailable [phone] Cortez Renee MD Unavailable [phone] Enrico Millan MD Unavailable [phone] Encounter Details Date Type Department Care Team (Late st Contact Info) Description 09/11/2022 MyChart Message Enc [facility] Medical Group Multispecialty Care - [facility] 3 [facility], [address] [place] [address] April Morris NP 3 [facility]. 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 Gender Identity Male 07/14/2024 3:19 PM CDT [...] Description 10/25/2024 11:20 AM CDT Office Visit [facility] Medical Group Multispecialty Care - [place] [address] [address] [place] [address] Melvin Ross MD [address] [place] [address] documented as of this encounter Visit Diagnoses Not on filedocumented in this encounter Additional Health Concerns Assessment Noted Time PHQ-9 Depression Total Score: 10 023 12:29 PM CDT documented as of this encounter Care Teams Jewelry Coater Relationship Specialty Start Date End Date Melvin Ross MD [address] [place] [address] PCP - General INTERNAL MEDICINE 08/23/21 [place] [address] [place] [phone] Consulting Physician UROLOGY 05/29/22 Cortez Renee MD 3 [place] [address] Surgeon NEUROLOGICAL SURGERY 05/29/22 Enrico Millan MD [address] [facility] [address] [place] [address] Referring Physician SPORTS MEDICINE 01/21/24 documented as of this encounter
--- OUTSIDE RECORDS SUMMARY | 2024-09-20 13:25 | XMS_ITS | Encounter Summary ---
Author Organization [facility] Address [facility] [place] [address] Care Team Providers Care Delivery Rn Name Role Phone Tank Patten MD Primary Care Provider [phone] Melvin Ross MD Primary Care Provider [phone] Karime Johnston MD Unavailable [phone] Cortez Renee MD Unavailable [phone] Enrico Millan MD Unavailable [phone] Encounter Details Date Type Department Care Team (Late st Contact Info) Description 05/08/2021 Prep for Procedure [facility] [place] [address] [id number] Corin Braxton, MARCOS [address] [place] [address] Social History Tobacco Use Types Packs/Day Years Used Date Smoking Tobacco: Never Smokeless Tobacco: Never Alcohol Use Standard Drinks/Week Comments Never 0 (1 standard drink = 0.6 oz pur e alcohol) Sex and Gender Information Value Date Recorded Sex Assigned at Male 07/14/2024 3:19 PM CDT 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 No / Unsure 05/08/2021 1:33 PM LACING CUTTER documented as of this encounter Functional Status * Calculated C-SSRS Risk Score (Lifetime/Recent) Answer Date of Assessment Author Status No Risk Indicated 05/08/2021 2:08 PM LACING CUTTER Antony Jara i, RN Active * [place] Suicide Severity Rating Scale (Screener/Recent Self-Report) Question Answer Date of Assessment Author Status 1. Wish to be (Past 1 Month) No 05/08/2021 2:08 PM LACING CUTTER Jf Jara RN Acti ve 2. Non-Specific Active Suicidal Thoughts (Past 1 Month) No 05/08/2021 2:08 PM LACING CUTTER Jf Jara RN Acti ve 6. Suicidal Behavior (Lifetime) No 05/08/2021 2:08 PM LACING CUTTER Jf Jara RN Acti ve documented as of this encounter Plan of Treatment Upcoming Encounters Date Type Department Care Team (Late st Contact Info) Description 10/25/2024 11:20 AM CDT Office Visit [facility] Medical Group Multispecialty [facility] - [place] [address] [address] [place] [address] Melvin Ross MD [address] [place] [address] documented as of this encounter Visit Diagnoses Not on filedocumented in this encounter Care Teams Delivery Rn Relationship Specialty Start Date End Date Tank Patten MD PCP - General INTERNAL MEDICINE 05/08/21 08/22/21 Melvin Ross MD [address] [place] [address] PCP - General INTERNAL MEDICINE 08/23/21 [place] [address] [place] [phone] Consulting Physician UROLOGY 05/29/22 Cortez Renee MD 3 [place] [address] Surgeon NEUROLOGICAL SURGERY 05/29/22 Enrico Millan MD [address] [facility] [address] [place] [address] Referring Physician SPORTS MEDICINE 01/21/24 documented as of this encounter
--- OUTSIDE RECORDS SUMMARY | 2024-09-20 13:25 | XMS_ITS | Encounter Summary ---
Author Organization [facility] - [facility] Address [facility] [place] [address] Care Team Providers Care Tubing Assembler Name Role Phone Melvin Ross MD Primary Care Provider [phone] Karime Johnston MD Unavailable [phone] Cortez Renee MD Unavailable [phone] Enrico Millan MD Unavailable [phone] Encounter Details Date Type Department Care Team (Latest Contact Info) Description 08/17/2024 Results Follow-Up [facility] Medical Group Multispecialty Care - [place] [address] [address] [place] [address] [place] [address] [place] [address] [address] [place] [address] BASIC METABOLIC PANEL Social History Tobacco Use Types Packs/Day Years [...] from your doctor or pharmacy? Never 07/14/2024 [facility] Utilities Answer Date Recorded In the past [...] week 07/14/2024 How often do you attend [facility] or muslim services? More than 4 times per year 07/14/2024 Do you belong to any clubs o r organizations such as catholic groups, unions, fraternal or athletic groups, or [...] Recorded Patient Health Questionnaire-2 Score 1 07/21/2024 [facility] [place] of Occupat ional Health - Occupational Stress [...] any time in the past 12 m [facility], were you homeless or living in a jail (including now)? 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 Not on sahnell e Not on file Not on file documented as of this encounter Plan of Treatment Upcoming Encounters Date Type Department Care Team (Late st Contact Info) Description 10/25/2024 11:20 AM CDT Office Visit [facility] Medical Group Multispecialty Care - [address] [place] [address] Melvin Ross MD [address] [facility] [address] [place] [address] documented as of this encounter Visit Diagnoses Not on filedocumented in this encounter Additional Health Concerns Assessment Noted Time PHQ-9 Depression Total Score: 4 07/22/19 25 9:52 AM CDT documented as of this encounter Care Teams Tubing Assembler Relationship Specialty Start Date End Date Melvin Ross MD [address] [facility] [address] [place] [address] PCP - General INTERNAL MEDICINE 08/23/21 [place] [address] [place] [address] Consulting Physician UROLOGY 05/29/22 Cortez Renee MD 3 [place] [address] Surgeon NEUROLOGICAL SURGERY 05/29/22 Enrico Millan MD [address] [facility] [address] [place] [address] Referring Physician SPORTS MEDICINE 01/21/24 documented as of this encounter
--- OUTSIDE RECORDS SUMMARY | 2024-09-20 13:25 | XMS_ITS | Encounter Summary ---
Author Organization [facility] Address [facility] [place] [address] Care Team Providers Care Qa Architect Name Role Phone Melvin Ross MD Primary Care Provider [phone] Karime Johnston MD Unavailable [phone] Cortez Renee MD Unavailable [phone] Enrico Millan MD Unavailable [phone] Encounter Details Date Type Department Care Team (Late st Contact Info) Description 09/28/2021 MyChart Message Enc [facility] Medical Group Multispecialty Care - [facility] 3 [facility], [address] [place] [address] April Morris NP 3 [facility]. [address] [place] [address] CT scan Social History Tobacco Use Types Packs/Day Years Used Date Smoking Tobacco: Never Smokeless Tobacco: Never Comments:counseled by Dr Sharon olivier Alcohol Use Standard Drinks/Week Comments Not Currently 0 (1 standard drink = 0.6 oz pur e alcohol) Rarely drink PHQ-2 Answer Date Recorded PHQ-2 Score - If the patient scores above 3, please move on to questions 3-9 6 09/26/2021 Sex and Gender Information Value Date Recorded Sex Assigned at Male 07/14/2024 3:19 PM CDT Legal Sex Male 1:53 PM FAMILY PRACTICE MD Gender Identity Male 07/14/2024 3:19 PM CDT [...] suspected to have Coronavirus/COVID-19? No / Unsure 09/26/2021 9:24 AM CDT documented as of this encounter Plan of Treatment Upcoming Encounters Date Type Department Care Team (Late st Contact Info) Description 10/25/2024 11:20 AM CDT Office Visit [facility] Medical Group Multispecialty Care - [place] [address] [address] [place], [place] [address] Melvin Ross MD [address] [place] [address] documented as of this encounter Visit Diagnoses Not on filedocumented in this encounter Additional Health Concerns Assessment Noted Time PHQ-9 Depression Total Score: 18 022 9:45 AM CDT documented as of this encounter Care Teams Qa Architect Relationship Specialty Start Date End Date Melvin Ross MD [address] [place] [id number] PCP - General INTERNAL MEDICINE 08/23/21 [place] [address] [place] [phone] Consulting Physician UROLOGY 05/29/22 Cortez Renee MD 3 [place], [place] [phone] Surgeon NEUROLOGICAL SURGERY 05/29/22 Enrico Millan MD [address] [facility] [address] [place] [phone] Referring Physician SPORTS MEDICINE 01/21/24 documented as of this encounter
--- OUTSIDE RECORDS SUMMARY | 2024-09-20 13:25 | XMS_ITS | Encounter Summary ---
Author Organization [facility] Address [facility] [place] [address] Care Team Providers Care Collections Attorney Name Role Phone Melvin Ross MD Primary Care Provider Karime Johnston MD Unavailable [phone] Cortez Renee MD Unavailable [phone] Enrico Millan MD Unavailable [phone] Encounter Details Date Type Department Care Team (Late st Contact Info) Description 01/13/2024 MyCJagext Message Enc [facility] Medical Group Multispecialty Care - [place] [address] [address] [place] [address] Melvin Ross MD [address] [place] [address] 157 [place] [address] Cervical X-rays Social History Tobacco Use Types Packs/Day Years [...] PM CDT 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 Gender Identity Male 07/14/2024 3:19 PM CDT [...] Description 10/25/2024 11:20 AM CDT Office Visit [facility] Medical Group Multispecialty Care - [place] [address] [address] [place] [address] Melvin Ross MD [address] [place] [address] documented as of this encounter Visit Diagnoses Not on filedocumented in this encounter Additional Health Concerns Assessment Noted Time PHQ-9 Depression Total Score: 12 024 11:07 AM CDT documented as of this encounter Care Teams Collections Attorney Relationship Specialty Start Date End Date Melvin Ross MD [address] [place] [address] PCP - General INTERNAL MEDICINE 08/23/21 [place] [address] [place] [phone] Consulting Physician UROLOGY 05/29/22 Cortez Renee MD 3 [place] [address] Surgeon NEUROLOGICAL SURGERY 05/29/22 Enrico Millan MD [address] [facility] [address] [place] [phone] Referring Physician SPORTS MEDICINE 01/21/24 documented as of this encounter
--- OUTSIDE RECORDS SUMMARY | 2024-09-20 13:25 | XMS_ITS | Encounter Summary ---
Author Organization [facility] Address [address] [place] [address] Care Team Providers Care Tablet Technician Name Role Phone Melvin Ross MD Primary Care Provider [phone] Karime Johnston MD Unavailable [phone] Cortez Renee MD Unavailable [phone] Enrico Millan MD Unavailable [phone] Encounter Details Date Type Department Care Team (Latest Contact Info) Description 08/27/2021 Umbrella Heret Message Enc [facility] - [place] [address] [address] [place] [address] Melvin Ross MD 118[address] [facility] 157 [place] [address] medication for hemorrhoids Social History Tobacco Use Types Packs/Day Years [...] PM CDT 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 Gender Identity Male 07/14/2024 3:19 PM CDT [...] Description 10/25/2024 11:20 AM CDT Office Visit [facility] - [place] [address] [address] [place] [address] [place] [address] [place] [address] 157 [place] [address] documented as of this encounter Visit Diagnoses Not on filedocumented in this encounter Additional Health Concerns Assessment Noted Time PHQ-9 Depression Total Score: 15 022 2:06 PM CDT documented as of this encounter Care Teams Tablet Technician Relationship Specialty Start Date End Date Melvin Ross MD [address] [place] [address] 157 [place] [address] PCP - General INTERNAL MEDICINE 08/23/21 [place] [address] [place] [address] Consulting Physician UROLOGY 05/29/22 Cortez Renee MD 3 [place] [address] Surgeon NEUROLOGICAL SURGERY 05/29/22 Enrico Millan MD [address] [facility] [address] [place] [address] Referring Physician SPORTS MEDICINE 01/21/24 documented as of this encounter
--- OUTSIDE RECORDS SUMMARY | 2024-09-20 13:25 | XMS_ITS | Encounter Summary ---
Author Organization [facility] Address [facility] [place] [address] Care Team Providers Care Mid Wife Name Role Phone Melvin Ross MD Primary Care Provider [phone] Karime Johnston MD Unavailable [phone] Cortez Renee MD Unavailable [phone] Enrico Millan MD Unavailable [phone] Encounter Details Date Type Department Care Team (Latest Contact Info) Description 10/22/2021 AutoBike Message Enc [facility] Multispecialty Care - [facility] 3 [facility], [address] [place] [address] Hillary Patel APRN 3 [facility] [address] [place] [address] Appointment on Friday Social History Tobacco Use Types Packs/Day Years Used Date Smoking Tobacco: Never Smokeless Tobacco: Never Comments:counseled by Dr Sharon olivier Alcohol Use Standard Drinks/Week Comments Not Currently 0 (1 standard drink = 0.6 oz pur e alcohol) Rarely drink PHQ-2 Answer Date Recorded PHQ-2 Score - If the patient scores above 3, please move on to questions 3-9 0 10/22/2021 Sex and Gender Information Value Date Recorded Sex Assigned at Male 07/14/2024 3:19 PM CDT Legal 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 No / Unsure 10/22/2021 10:14 AM CDT documented as of this encounter Plan of Treatment Upcoming Encounters Date Type Department Care Team (Late st Contact Info) Description 10/25/2024 11:20 AM CDT Office Visit [facility] Multispecialty Care - [place] [address] [address] [place] [address] Melvin Ross MD [address] [place] [address] documented as of this encounter Visit Diagnoses Not on filedocumented in this encounter Additional Health Concerns Assessment Noted Time PHQ-9 Depression Total Score: 10 022 11:18 AM CDT documented as of this encounter Care Teams Mid Wife Relationship Specialty Start Date End Date Melvin Ross MD [address] [place] [address] PCP - General INTERNAL MEDICINE 08/23/21 [place] [address] [place] [phone] Consulting Physician UROLOGY 05/29/22 Cortez Renee MD 3 [place], [place] [phone] Surgeon NEUROLOGICAL SURGERY 05/29/22 Enrico Millan MD [address] [facility] [address] [place] [address] Referring Physician SPORTS MEDICINE 01/21/24 documented as of this encounter
--- OUTSIDE RECORDS SUMMARY | 2024-09-20 13:25 | XMS_ITS | Encounter Summary ---
Author Organization [facility] Address [facility] [place] [address] Care Team Providers Care Hand Woven Carpet And Rug Mender Name Role Phone Melvin Ross MD Primary Care Provider Karime Johnston MD Unavailable [phone] Cortez Renee MD Unavailable [phone] Enrico Millan MD Unavailable [phone] Encounter Details Date Type Department Care Team (Latest Contact Info) Description 10/25/2021 Jan Medicalt Message Enc [facility] Multispecialty Care - [place] [address] [address] [address] [place] [address] [place] [address] [place] [address] 157 [place] [address] Percoset prescription Social History Tobacco Use Types Packs/Day Years [...] PM CDT 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 Gender Identity Male 07/14/2024 3:19 PM CDT [...] Description 10/25/2024 11:20 AM CDT Office Visit [facility] Multispecialty Care - [place] [address] [address] [place] [address] Melvin Ross MD [address] [place] [address] documented as of this encounter Visit Diagnoses Not on filedocumented in this encounter Additional Health Concerns Assessment Noted Time PHQ-9 Depression Total Score: 10 022 11:18 AM CDT documented as of this encounter Care Teams Hand Woven Carpet And Rug Mender Relationship Specialty Start Date End Date Melvin Ross MD [address] [place] [address] PCP - General INTERNAL MEDICINE 08/23/21 [place] [address] [place] [phone] Consulting Physician UROLOGY 05/29/22 Cortez Renee MD 3 [place] [address] Surgeon NEUROLOGICAL SURGERY 05/29/22 Enrico Millan MD [address] [facility] [address] [place] [address] Referring Physician SPORTS MEDICINE 01/21/24 documented as of this encounter
--- OUTSIDE RECORDS SUMMARY | 2024-09-20 13:25 | XMS_ITS | Encounter Summary ---
Author Organization [facility] Address [facility] [place] [address] Care Team Providers Care Strategic Planning Manager Name Role Phone Melvin Ross MD Primary Care Provider [phone] Karime Johnston MD Unavailable [phone] Cortez Renee MD Unavailable [phone] Enrico Millan MD Unavailable [phone] Encounter Details Date Type Department Care Team (Latest Contact Info) Description 10/24/2021 Cardiac Dimensions Message Enc [facility] Multispecialty Care - [address] [place] [address] Specialty [facility] Provider medication approval Social History Tobacco Use Types Packs/Day Years [...] PM CDT Legal 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 Gender Identity Male 07/14/2024 3:19 PM [...] [facility] - [place] [address] [address] [address] [place] [address] Melvin Ross MD [address] [place] [address] documented as of this encounter Visit Diagnoses Not on filedocumented in this encounter Additional Health Concerns Assessment Noted Time PHQ-9 Depression Total Score: 10 022 11:18 AM CDT documented as of this encounter Care Teams Strategic Planning Manager Relationship Specialty Start Date End Date Melvin Ross MD [address] [place] [address] PCP - General INTERNAL MEDICINE 08/23/21 [place] [address] [place] [phone] Consulting Physician UROLOGY 05/29/22 Cortez Renee MD 3 [place] [address] Surgeon NEUROLOGICAL SURGERY 05/29/22 Enrico Millan MD [address] [facility] [address] [place] [address] Referring Physician SPORTS MEDICINE 01/21/24 documented as of this encounter
--- OUTSIDE RECORDS SUMMARY | 2024-09-20 13:25 | XMS_ITS | Encounter Summary ---
Author Organization [facility] Address [facility] [place] [address] Care Team Providers Care Tube Buffer Name Role Phone Melvin Ross MD Primary Care Provider [phone] Karime Johnston MD Unavailable [phone] Cortez Renee MD Unavailable [phone] Enrico Millan MD Unavailable [phone] Encounter Details Date Type Department Care Team (Late st Contact Info) Description 09/10/2024 MyChart Message Enc [facility] Multispecialty Care - [place] [address] [address] [place] [address] Melvin Ross MD [address] [place] [address] 157 [place] [address] [employer] Social History Tobacco Use Types Packs/Day Years [...] from your doctor or pharmacy? Never 07/14/2024 [facility] Utilities Answer Date Recorded In the past [...] week 07/14/2024 How often do you attend [facility] or pentecostalism services? More than 4 times per year [...] Recorded Patient Health Questionnaire-2 Score 1 07/21/2024 [facility] of Occupat ional Health - Occupational Stress [...] any time in the past 12 m [facility] [place], were you homeless or living in a intermediate (including now)? 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 Gender Identity Male 07/14/2024 3:19 PM CDT [...] Description 10/25/2024 11:20 AM CDT Office Visit [facility] Multispecialty Care - [address] [place] [address] Melvin Ross MD 118[address] [facility] 157 [place] [address] documented as of this encounter Visit Diagnoses Not on filedocumented in this encounter Additional Health Concerns Assessment Noted Time PHQ-9 Depression Total Score: 4 07/22/19 25 9:52 AM CDT documented as of this encounter Care Teams Tube Buffer Relationship Specialty Start Date End Date Melvin Ross MD [address] [facility] 157 [place] [address] PCP - General INTERNAL MEDICINE 08/23/21 [place] [address] [place] [address] Consulting Physician UROLOGY 05/29/22 Cortez Renee MD 3 [place] [address] Surgeon NEUROLOGICAL SURGERY 05/29/22 Enrico Millan MD [address] [facility] [address] [place] [address] Referring Physician SPORTS MEDICINE 01/21/24 documented as of this encounter
--- OUTSIDE RECORDS SUMMARY | 2024-09-20 13:25 | XMS_ITS | Encounter Summary ---
Author Organization [facility] - [facility] Address [facility] [place] [address] Care Team Providers Care Undergraduate Intern Name Role Phone Melvin Ross MD Primary Care Provider [phone] Karime Johnston MD Unavailable [phone] Cortez Renee MD Unavailable [phone] Enrico Millan MD Unavailable [phone] Encounter Details Date Type Department Care Team (Latest Contact Info) Description 07/30/2023 Kitanit Message Enc [facility] Multispecialty Care - [place] [address] [address] [place] [address] [place] [address] [place] [address] 157 [place] [address] Trulance prescription Social History Tobacco Use Types Packs/Day [...] Date Recorded Patient Health Questionnaire-2 Score 2 04/16/2023 Sex and Gender Information Value Date Recorded Sex Assigned at Male 07/14/2024 3:19 PM CDT Legal 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 Male 1:53 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 Gender Identity Male 07/14/2024 3:19 PM [...] Office Visit [facility] Multispecialty Care - [place] [address] [address] [place] [address] Melvin Ross MD [address] [place] [address] documented as of this encounter Visit Diagnoses Not on filedocumented in this encounter Additional Health Concerns Assessment Noted Time PHQ-9 Depression Total Score: 6 04/16/19 24 12:22 PM LATIN TEACHER documented as of this encounter Care Teams Undergraduate Intern Relationship Specialty Start Date End Date Melvin Ross MD [address] [place] [address] PCP - General INTERNAL MEDICINE 08/23/21 [place] [address] [place] [phone] Consulting Physician UROLOGY 05/29/22 Cortez Renee MD 3 [place] [address] Surgeon NEUROLOGICAL SURGERY 05/29/22 Enrico Millan MD [address] [facility] [address] [place] [address] Referring Physician SPORTS MEDICINE 01/21/24 documented as of this encounter
--- OUTSIDE RECORDS SUMMARY | 2024-09-20 13:25 | XMS_ITS | Encounter Summary ---
Author Organization [facility] Address [facility] [place] [address] Care Team Providers Care Semiconductors Wafer Breaker Name Role Phone Melvin Ross MD Primary Care Provider [phone] Karime Johnston MD Unavailable Cortez Renee MD Unavailable [phone] Enrico Millan MD Unavailable [phone] Encounter Details Date Type Department Care Team (Late st Contact Info) Description 02/03/2024 Therapy Plan [facility] Physical Therapy 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 Male 1:53 PM PT SITTER Gender Identity Male 07/14/2024 3:19 PM CDT [...] [facility] - [place] [address] [address] [place] [address] Melvin Ross MD [address] [place] [address] documented as of this encounter Visit Diagnoses Not on filedocumented in this encounter Additional Health Concerns Assessment Noted Time PHQ-9 Depression Total Score: 12 024 11:07 AM CDT documented as of this encounter Care Teams Semiconductors Wafer Breaker Relationship Specialty Start Date End Date Melvin Ross MD [address] [place] [address] PCP - General INTERNAL MEDICINE 08/23/21 [place] [address] [place] [phone] Consulting Physician UROLOGY 05/29/22 Cortez Renee MD 3 [place] [address] Surgeon NEUROLOGICAL SURGERY 05/29/22 Enrico Millan MD [address] [facility] [address] [place] [address] Referring Physician SPORTS MEDICINE 01/21/24 documented as of this encounter
--- OUTSIDE RECORDS SUMMARY | 2024-09-20 13:25 | XMS_ITS | Encounter Summary ---
Author Organization [facility] - [facility] Address [facility] [place] [address] Care Team Providers Care Finished Goods Inspector Name Role Phone Melvin Ross MD Primary Care Provider [phone] Karime Johnston MD Unavailable [phone] Cortez Renee MD Unavailable [phone] Enrico Millan MD Unavailable [phone] Encounter Details Date Type Department Care Team (Latest Contact Info) Description 10/05/2021 Scent-Lok Technologiest Message Enc [facility] Multispecialty Care - [place] [address] [address] [address] [place] [address] Melvin Ross MD [address] [facility] [address] [place] [address] Hemorrhoids(ugh!) Social History Tobacco Use Types Packs/Day Years [...] PM CDT 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 No / Unsure 10/08/2021 12:55 PM CDT documented as of this encounter Plan of Treatment Upcoming Encounters Date Type Department Care Team (Late st Contact Info) Description 10/25/2024 11:20 AM CDT Office Visit [facility] Multispecialty Care - [place] [address] [address] [address] [place] [address] Melvin Ross MD [address] [place] [address] documented as of this encounter Visit Diagnoses Not on filedocumented in this encounter Additional Health Concerns Assessment Noted Time PHQ-9 Depression Total Score: 18 022 9:45 AM CDT documented as of this encounter Care Teams Finished Goods Inspector Relationship Specialty Start Date End Date Melvin Ross MD [address] [place] [address] PCP - General INTERNAL MEDICINE 08/23/21 [place] [address] [place] [phone] Consulting Physician UROLOGY 05/29/22 Cortez Renee MD 3 [place] [address] Surgeon NEUROLOGICAL SURGERY 05/29/22 Enrico Millan MD [address] [facility] [address] [place] [phone] Referring Physician SPORTS MEDICINE 01/21/24 documented as of this encounter
--- OUTSIDE RECORDS SUMMARY | 2024-09-20 13:25 | XMS_ITS | Encounter Summary ---
Author [facility] Address [facility] [place] [address] Care Team Providers Care Offset Assistant Press Operator Name Role Phone Melvin Ross MD Primary Care Provider Karime Johnston MD Unavailable [phone] Cortez Renee MD Unavailable [phone] Enrico Millan MD Unavailable [phone] Encounter Details Date Type Department Care Team (Late st Contact Info) Description 05/31/2024 MyChart Message [facility] Care - [place] [address] [place] [address] [address] [place] [address] [place] [address] [place] [address] 157 [place] [address] Methyphenidate Social History Tobacco Use Types Packs/Day Years [...] Date Recorded Patient Health Questionnaire-2 Score 2 04/14/2024 Sex and Gender Information Value Date Recorded Sex Assigned at Male 07/14/2024 3:19 PM CDT 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 Gender Identity Male 07/14/2024 3:19 PM CDT [...] Description 10/25/2024 11:20 AM CDT [facility] Care - [place] [address] [address] [place] [address] Melvin Ross MD [address] [place] [address] documented as of this encounter Visit Diagnoses Not on filedocumented in this encounter Additional Health Concerns Assessment Noted Time PHQ-9 Depression Total Score: 12 024 11:07 AM CDT documented as of this encounter Care Teams Offset Assistant Press Operator Relationship Specialty Start Date End Date Melvin Ross MD [address] [place] [address] PCP - General INTERNAL MEDICINE 08/23/21 [place] [address] [place] [phone] Consulting Physician UROLOGY 05/29/22 Cortez Renee MD 3 [place] [address] Surgeon NEUROLOGICAL SURGERY 05/29/22 Enrico Millan MD [address] [facility] [address] [place] [phone] Referring Physician SPORTS MEDICINE 01/21/24 documented as of this encounter
--- OUTSIDE RECORDS SUMMARY | 2024-09-20 13:25 | XMS_ITS | Encounter Summary ---
Author Organization [facility] Address [facility] [place] [address] Care Team Providers Care Job Interviewer Name Role Phone Melvin Ross MD Primary Care Provider [phone] Karime Johnston MD Unavailable [phone] Cortez Renee MD Unavailable [phone] Enrico Millan MD Unavailable [phone] Encounter Details Date Type Department Care Team (Late st Contact Info) Description 07/25/2023 MyChart Message Enc [facility] Multispecialty Care - [place] [address] [place] [address] [address] [place] [address] [place] [address] [place] [address] [address] [place] [address] [employer] Social History Tobacco Use [...] PM CDT Legal Sex Male 1:53 PM FIELD CHECKER Gender Identity Male 07/14/2024 3:19 PM CDT Sexual Orientation Straight 07/14/2024 3: 19 PM CDT 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 * Jimi Valdez - 07/28/2023 7:11 AM CDT Called patient and LVM to schedule a virtual visit to discuss medication options. documented in this encounter Plan of Treatment Upcoming Encounters Date Type Department Care Team (Late st Contact Info) Description 10/25/2024 11:20 AM CDT Office Visit [facility] Multispecialty Care - [place] [address] [address] [address] [place] [address] Mevlin Ross MD [address] [place] [address] documented as of this encounter Visit Diagnoses Not on filedocumented in this encounter Additional Health Concerns Assessment Noted Time PHQ-9 Depression Total Score: 6 04/16/19 24 12:22 PM FIELD CHECKER documented as of this encounter Care Teams Job Interviewer Relationship Specialty Start Date End Date Melvin Ross MD [address] [place] [address] PCP - General INTERNAL MEDICINE 08/23/21 [place] [address] [place] [address] Consulting Physician UROLOGY 05/29/22 Cortez Renee MD 3 [place] [address] Surgeon NEUROLOGICAL SURGERY 05/29/22 Enrico Millan MD [facility] [address] [place] [address] Referring Physician SPORTS MEDICINE 01/21/24 documented as of this encounter
--- OUTSIDE RECORDS SUMMARY | 2024-09-20 13:26 | XMS_ITS | Encounter Summary ---
Author Organization [facility] Address Formerly [facility] [place] [address] Care Team Providers Care Ancient Art Curator Name Role Phone Melvin Ross MD Primary Care Provider Karime Johnston MD Unavailable [phone] Cortez Renee MD Unavailable [phone] Enrico Millan MD Unavailable [phone] Encounter Details Date Type Department Care Team (Latest Contact Info) Description 01/25/2022 Celsiast Message Enc [facility] Medical [facility] Multispecialty Care - [place] [address] [address] [place] [address] Melvin Ross MD [address] 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 No / Unsure 01/28/2022 11:32 AM AIRPLANE PILOT SUPERVISOR documented as of this encounter Functional Status * Calculated C-SSRS Risk Score (Lifetime/Recent) Answer Date of Assessment Author Status No Risk Indicated 01/28/2022 11:59 AM AIRPLANE PILOT SUPERVISOR Sana Dowling RN Active * [place] Suicide Severity Rating Scale (Screener/Recent Self-Report) Question Answer Date of Assessment Author Status 1. Wish to be (Past 1 Month) No 01/28/2022 11:59 AM Clemencia Burdick RN A ctive 2. Non-Specific Active Suicidal Thoughts (Past 1 Month) No 01/28/2022 11:59 AM Clemencia Burdick RN A ctive 6. Suicidal Behavior (Lifetime) No 01/28/2022 11:59 AM Clemencia Burdick RN A ctive documented as of this encounter Plan of Treatment Upcoming Encounters Date Type Department Care Team (Late st Contact Info) Description 10/25/2024 11:20 AM CDT Office Visit [facility] Multispecialty Care [place] [address] [address] [place] [address] Mevlin Ross MD [address] [place] [address] documented as of this encounter Visit Diagnoses Not on filedocumented in this encounter Additional Health Concerns Assessment Noted Time PHQ-9 Depression Total Score: 10 022 11:18 AM CDT documented as of this encounter Care Teams Ancient Art Curator Relationship Specialty Start Date End Date Melvin Ross MD [address] [place] [address] PCP - General INTERNAL MEDICINE 08/23/21 [place] [address] [place] [address] Consulting Physician UROLOGY 05/29/22 Cortez Renee MD [address] [place] [address] Surgeon NEUROLOGICAL SURGERY 05/29/22 Enrico Millan MD [address] [facility] [address] [place] [address] Referring Physician SPORTS MEDICINE 01/21/24 documented as of this encounter
--- OUTSIDE RECORDS SUMMARY | 2024-09-20 13:26 | XMS_ITS | Referral Summary ---
Author Organization [facility] Address [facility] [place] [address] Care Team Providers Care Correctional Supervisor Name Role Phone Melvin Ross MD Primary Care Provider [phone] Allergies No known active allergies Medications clonazePAM (KlonoPIN) 0.5 mg tablet Take 1 tablet (0.5 mg total) by mouth daily as needed for anxiety Active lisinopril-hydr oCHLOROthiazide (ZESTORETIC) 10-12.5 mg per tablet Take 1 tablet by mouth daily 3 Active oxyCODONE-aceta minophen (PERCOCET) 7.5-325 mg per tablet Take 1 tablet by mouth daily Active SUMAtriptan (IMITREX) 100 mg tablet Take 1 tablet (100 mg total) by mouth daily 3 Active syringe with needle, safety 3 mL 25 gauge x 5/8 syringe Use to inject testosterone every other week 20 each 11 3 Active celecoxib (CeleBREX) 200 mg capsule Take 1 tablet by mouth daily Active furosemide (LASIX) 20 mg tablet Take 1 tablet every day by oral route in the morning. Active metoprolol XL (TOPROL-XL) 50 mg extended release tablet Take 1 tablet (50 mg total) by mouth daily 4 Active ROPivacaine (NAROPIN) 5 mg/mL (0.5 %) injection Take 40 mg by injection route. 3 Active testosterone cypionate (DEPO-TESTOTERO NE) 100 mg/mL injection INJECT 2ML IN THE MUSCLE EVERY 14 DAYS DIRECTED 10 mL 1 5 Active Active Problems Problem Noted Date Diagnosed Date Depression with anxiety 06/12/2023 Assessment & Plan (06/12/2023 2:33 PM CDT): Referred send to psych Low testosterone in male 01/22/2023 Assessment & Plan (06/12/2023 2:34 PM CDT): Update Testosterone levels, FSH, LH Will adjust dose of T , if indicated Assessment & Plan (01/22/2023 4:09 PM PAINTER): Probably hypogonadism Pathophysiology of pituitary gonadal axis was explained in detail as well as the circadian production of testosterone. Will recheck morning free and total testosterone, FSH, LH and prolactin Will start treatment with T replacement as indicated Borderline abnormal TFTs 01/22/2023 Assessment & Plan (01/22/2023 4:09 PM PAINTER): Update TFTs and treat it, if indicated Nocturia 01/22/2023 Social History Tobacco Use Types Packs/Day Years Used Date Smoking Tobacco: Never Tobacco Cessation:Counseling Given: Not Answered PHQ-2 Answer Date Recorded PHQ-2 Total Score (If total score is 3 or more points, staff should administer the PHQ-9) 0 01/22/2023 Personal Safety Answer Date Recorded Getting School Help Needed Not on file 03/01 Sex and Gender Information Value Date Recorded Sex Assigned at Not on file Legal Sex Male 4:46 PM PAINTER Gender Identity Not on file Sexual Orientation Not on file Last Filed Vital Signs Vital Sign Reading Time Taken Comments Blood Pressure 120/70 06/12/2023 1:25 PM CDT Pulse 74 06/12/2023 1:25 PM CDT Temperature - - Respiratory Rate 15 06/12/2023 1:25 PM CDT Oxygen Saturation - - Inhaled Oxygen Concentration - - Weight 88.5 kg (195 lb) 06/12/2023 1:25 PM CDT Height 188 cm (6' 2) 06/12/2023 1:25 PM CDT Body Mass Index 25.04 06/12/2023 1:25 PM CDT Plan of Treatment Not on file Procedures Procedure Name Priority Date/Time Associated Diagnosis Comments PSA SCREEN Routine 01/22/2023 11:08 AM PAINTER Nocturia from Last 3 Months or Most Recently Relevant to Health Maintenance Results * PSA screen (01/22/2023 11:08 AM PAINTER) PSA-Total 1.88 <=5.40 ng/mL JAVI LONG Comment: Interpretive Data AGE SEX REFERENCE INTERVAL 0 minutes-150 years Female None 0 minutes-49 years Male None 50-59 years Male 0-3.90 60-69 years Male 0-5.40 70-79 years Male 0-6.20 80-150 years Male 0-6.20 The Dalton PSA Total assay procedure was used. Results from different manufacturers or methods may not be comparable. Serial testing should be performed using the same method. Current interpretive data last revised 21. Blood 01/22/2023 11:0 8 AM PAINTER 01/22/2023 12:57 PM PAINTER us Jeremias Vela MD LAB BLOOD ORDERABLES Final Resul t JAVI [id number] [address] Department [place] [address] from Last 3 Months or Most Recently Relevant to Health Maintenance Insurance [employer] [place] [facility] MEDICARE ADVANTAGE Care Teams Correctional Supervisor Relationship Specialty Start Date End Date Melvin Ross MD [address] [facility] [address] [place] [address] PCP - General Internal Medicine 12/26/22
--- OUTSIDE RECORDS SUMMARY | 2024-09-20 13:26 | XMS_ITS | Encounter Summary ---
Author Organization [facility] - [facility] Address formerly [facility] [place] [address] Care Team Providers Care Applied Behavior Specialist Name Role Phone Melvin Ross MD Primary Care Provider [phone] Karime Johnston MD Unavailable [phone] Cortez Renee MD Unavailable [phone] Enrico Millan MD Unavailable [phone] Encounter Details Date Type Department Care Team (Late st Contact Info) Description 05/09/2023 MyCFinancetesetudest Message Enc [facility] Medical Group Multispecialty Care - [place] [address] [place] [address] [address] [place] [address] [place] [address] [place] [address] [address] [place] [address] IBS-C Social History Tobacco Use Types Packs/Day Years [...] PM CDT Legal Sex Male 1:53 PM URGENT CARE Gender Identity Male 07/14/2024 3:19 PM CDT [...] Description 10/25/2024 11:20 AM CDT Office Visit [facility] Multispecialty Care - [place] [address] [address] [place] [address] Melvin Ross MD [address] [place] [address] documented as of this encounter Visit Diagnoses Not on filedocumented in this encounter Additional Health Concerns Assessment Noted Time PHQ-9 Depression Total Score: 6 04/16/19 24 12:22 PM URGENT CARE documented as of this encounter Care Teams Applied Behavior Specialist Relationship Specialty Start Date End Date Melvin Ross MD [address] [place] [address] PCP - General INTERNAL MEDICINE 08/23/21 [place] [address] [place] [phone] Consulting Physician UROLOGY 05/29/22 Cortez Renee MD [address] [place] [address] Surgeon NEUROLOGICAL SURGERY 05/29/22 Enrico Millan MD [address] [facility] [address] [place] [phone] Referring Physician SPORTS MEDICINE 01/21/24 documented as of this encounter
--- OUTSIDE RECORDS SUMMARY | 2024-09-20 13:26 | XMS_ITS | Encounter Summary ---
Author Organization [facility] - [facility] Address [facility] [place] [address] Care Team Providers Care Garbage Truck Driver Name Role Phone Melvin Ross MD Primary Care Provider [phone] Karime Johnston MD Unavailable [phone] Cortez Renee MD Unavailable [phone] Enrico Millan MD Unavailable [phone] Encounter Details Date Type Department Care Team (Late st Contact Info) Description 04/25/2023 MyChart Message Enc [facility] Medical Group Multispecialty Care - [place] [address] [address] [place] [address] Melvin Ross MD [address] [place] [address] [address] [place] [address] Dicyclomine Social History Tobacco Use Types Packs/Day Years [...] PM CDT Legal Sex Male 1:53 PM DOCUMENTATION SPECIALIST Gender Identity Male 07/14/2024 3:19 PM [...] Description 10/25/2024 11:20 AM CDT Office Visit [facility] Medical Group Multispecialty Care - [place] [address] [address] [place] [address] Melvin Ross MD [address] [place] [address] documented as of this encounter Visit Diagnoses Not on filedocumented in this encounter Additional Health Concerns Assessment Noted Time PHQ-9 Depression Total Score: 6 04/16/19 24 12:22 PM DOCUMENTATION SPECIALIST documented as of this encounter Care Teams Garbage Truck Driver Relationship Specialty Start Date End Date Melvin Ross MD [address] [place] [address] PCP - General INTERNAL MEDICINE 08/23/21 [place] [address] [place] [phone] Consulting Physician UROLOGY 05/29/22 Cortez Renee MD [address] [place] [address] Surgeon NEUROLOGICAL SURGERY 05/29/22 Enrico Millan MD [address] [facility] [address] [place] [phone] Referring Physician SPORTS MEDICINE 01/21/24 documented as of this encounter
--- OUTSIDE RECORDS SUMMARY | 2024-09-20 13:26 | XMS_ITS | Encounter Summary ---
Author Organization [facility] - [facility] Address [facility] [place] [address] Care Team Providers Care E Mail System Administrator Name Role Phone Melvin Ross MD Primary Care Provider Karime Johnston MD Unavailable [phone] Cortez Renee MD Unavailable [phone] Enrico Millan MD Unavailable [phone] Encounter Details Date Type Department Care Team (Late st Contact Info) Description 12/05/2021 MyChart Message Enc [facility] Medical Group Multispecialty Care - [place] [address] [address] [place] [address] Melvin Ross MD [address] [place] [address] [address] [place] [address] Low energy Social History Tobacco Use Types Packs/Day Years [...] PM CDT Legal 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 No / Unsure 12/04/2021 1:21 PM CDT documented as of this encounter Plan of Treatment Upcoming Encounters Date Type Department Care Team (Late st Contact Info) Description 10/25/2024 11:20 AM CDT Office Visit [facility] Medical Group Multispecialty Care - [place] [address] [address] [place] [address] Melvin Ross MD [address] [place] [address] documented as of this encounter Visit Diagnoses Not on filedocumented in this encounter Additional Health Concerns Assessment Noted Time PHQ-9 Depression Total Score: 10 022 11:18 AM CDT documented as of this encounter Care Teams E Mail System Administrator Relationship Specialty Start Date End Date Melvin Ross MD [address] [place] [id number] PCP - General INTERNAL MEDICINE 08/23/21 [place] [address] [place] [phone] Consulting Physician UROLOGY 05/29/22 Cortez Renee MD [address] [place] [address] Surgeon NEUROLOGICAL SURGERY 05/29/22 Enrico Millan MD [address] [facility] [address] [place] [address] Referring Physician SPORTS MEDICINE 01/21/24 documented as of this encounter
--- OUTSIDE RECORDS SUMMARY | 2024-09-20 13:26 | XMS_ITS | Clinical Summary ---
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 90 capsule 1 024 Active chlorthalidone (HYGROTEN) 25 MG tabletIndication s:Primary hypertension Take 1 tablet (25 mg total) by mouth daily. 90 tablet 1 025 Active Meloxicam 7.5 MG TABLET DISPERSIBLE Take 1 tablet by mouth 2 (two) times daily as needed. 025 Active DULoxetine (CYMBALTA) 30 MG capsuleIndicatio ns:Chronic pain in left foot,Major depressive disorder, recurrent episode, moderate (CMS/HCC) Take 1 capsule by mouth daily 90 capsule 025 Active furosemide (LASIX) 20 MG tabletIndication s:Leg swelling Take one tablet daily as needed along with a potassium pill. 90 tablet 025 Active potassium chloride CR (KLOR-CON M) 20 MEQ tabletIndication s:Leg swelling Take 1 tablet (20 mEq total) by mouth daily. Take one tablet with worsening ankle and leg swelling as needed when you take your lasix 90 tablet 025 Active oxyCODONE-acetam inophen (PERCOCET) 7.5-325 MG tabletIndication s:Chronic Pain Take 1 tablet by mouth 2 (two) times daily as needed for Pain. Indications: Chronic Pain 60 tablet 025 Active testosterone cypionate (DEPO TESTOSTERONE) 100 MG/ML injection ADMINISTER 2 ML IN THE MUSCLE EVERY 14 DAYS DIRECTED 025 Active B-D 3CC LUER-YONATAN SYR 23GX1 23G X 1 3 ML MiscIndications: Testosterone deficiency Inject 2 mLs into the skin every 14 (fourteen) days for 30 days. 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 MAX 2 TABLETS IN 24 HOUR PERIOD 8 tablet 2 025 Active clonazePAM (KLONOPIN) 0.5 MG tabletIndication s:Anxiety Take 1 tablet (0.5 mg total) by mouth daily as needed. FOR ANXIETY 30 tablet 025 Active linaCLOtide (LINZESS) 290 MCG capsuleIndicatio ns:Irritable bowel syndrome with constipation Take 1 capsule (290 mcg total) by mouth every morning before breakfast. Take on empty stomach at least 30 minutes prior to first meal of the day. Swallow whole. Do not open capsule or chew. 30 capsule 4 025 Active methylphenidate (RITALIN) 10 MG tabletIndication s:Attention or concentration deficit Take 1 tablet (10 mg total) by mouth daily. 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 Max of 2 tablets in 24-hour period.TAKE 1 TABLET BY MOUTH AT ONSET OF SYMPTOMS NEEDED FOR MIGRAINE. MAY TAKE 1 TABLET 2 HOUR LATER. MAXIMUM OF 2 TABLETS IN 24 HOUR PERIOD 8 tablet 3 025 2024 Discontinued oxyCODONE-acetam inophen (PERCOCET) 7.5-325 MG tabletIndication s:Chronic Pain Take 1 tablet by mouth 2 (two) times daily as needed for Pain. Indications: Chronic Pain 60 tablet 025 2024 Discontinued(R eorder) Plecanatide (TRULANCE) 3 MG TabIndications:I rritable bowel syndrome with constipation Take 3 mg by mouth daily. 30 tablet 3 025 2024 Discontinued(T herapy completed) clonazePAM (KLONOPIN) 0.5 MG tabletIndication s:Anxiety Take 1 tablet (0.5 mg total) by mouth daily as needed. FOR ANXIETY 30 tablet 025 2024 Discontinued(R eorder) methylphenidate (RITALIN) 5 MG tabletIndication s:Attention or concentration deficit Take 1 tablet (5 mg total) by mouth daily. 30 tablet 025 2024 Discontinued(R eorder) Active Problems Problem Noted Date Diagnosed Date Major depressive disorder, recurrent, moderate 0 08/22/2023 Facet arthritis of lumbar region 05/24/2022 Degenerative disc disease, lumbar 05/24/2022 Foraminal stenosis of lumbar region 05/24/2022 Spondylolisthesis of lumbar region 05/24/2022 Cervical facet joint syndrome 01/07/2022 Overview (01/07/2022): Added automatically from request for surgery [id number] Abnormal CT of the abdomen 11/02/2021 Overview (11/02/2021): Added automatically from request for surgery [id number] Epigastric pain 10/15/2021 Overview (10/15/2021): Added automatically from request for surgery [id number] Gastroesophageal reflux dise ase, unspecified whether esophagitis present 10/15/2021 Overview (10/15/2021): Added automatically from request for surgery [id number] Chronic constipation 10/15/2021 Overview (10/15/2021): Added automatically from request for surgery [id number] Abdominal bloating with cramps 10/15/2021 Overview (10/15/2021): Added automatically from request for surgery [id number] Dysphagia, unspecified type 10/15/2021 Overview (10/15/2021): Added automatically from request for surgery [id number] Multilevel degenerative disc disease 09/25/2021 Partial thickness rotator cuff tear 09/06/2021 Cervical radiculopathy 09/06/2021 Arthritis 08/23/2021 Chronic back pain 08/23/2021 Chronic headaches 08/23/2021 Edema 08/23/2021 Essential hypertension 08/23/2021 Migraine 08/23/2021 Neuropathy 08/23/2021 Hemorrhoids 07/06/2021 Osteoarthritis of both knees 06/29/2021 Neck pain 04/27/2021 Fatigue 02/14/2021 Vitamin D deficiency 02/02/2021 Depression 12/15/2020 Anxiety 11/15/2020 Peptic ulcer 11/15/2020 Unexplained weight loss 09/14/2020 Encounters Date Type Department Care Team Description 09/14/2024 Orders Only [facility] [place] [address] [facility] [address] [place] [address] Melvin Ross MD 09/13/2024 Results Follow-Up [facility] [place] [address] [place] [address] Melvin Ross MD USE ECHOCARDIOGRAM W CON 09/13/2024 [facility] [place] [address] [place] [address] Melvin Ross MD Methylphenidate 09/10/2024 [facility] [place] [address] [place] [address] Melvin Ross MD Medication 09/10/2024 MyChart Message Enc [place] [address] [address] [place] [address] Melvin Ross MD Linzesjolene 09/08/2024 1:17 PM CDT - 09/08/2024 11:59 PM CDT Hospital Encounter [facility] Non Invasive Cardiology [address] [place] [address] Melvin Ross MD Discharge Disposition: Home or Self Care (Routine Discharge) 09/08/2024 Travel 08/27/2024 Orders Only [place] [address] [address] [place] [address] Danna Rodriguez MA 08/17/2024 Results Follow-Up [place] [address] [address] [place] [address] Melvin Ross MD BASIC METABOLIC PANEL 08/16/2024 Telephone [place] [address] [place] [address] Melvin Ross MD Results 08/16/2024 Travel 08/13/2024 Scan HEALTH INFO SRVCS Scanned, [facility] MRI (SCAN) 08/11/2024 7:40 AM CDT Office Visit [place] [address] [address] [place] [address] Melvin Ross MD Follow Up; Attention Deficit Disorder; Hypertension; Edema (States foot is swollen ); Leg Swelling; Low Testosterone 08/11/2024 Results Follow-Up [address] [place] [address] Melvin Ross MD CBC W/DIFF AUTOMATED, HEMOGLOBIN, GLYCOSYLATED, TSH W/REFLEX, Additional followed-up results: 2 08/11/2024 Travel 07/30/2024 1:30 PM CDT Office Visit [place] [address] [address] Melvin Ross MD Tolle, Lisa C, PT Ankle/foot Pain 07/30/2024 Travel 07/23/2024 Results Follow-Up [place] [address] [address] [place] [address] Makenna Prather, UI UX ENGINEER XR FOOT LT 3V 2024 Travel 2024 MyChart Message Enc [place] [address] [place] [address] Melvin Ross MD nerve conduction test 07/21/2024 10:00 AM CDT Office Visit [place] [address] [address] Melvin Ross MD Tolle, Lisa C, PT Ankle/foot Pain 07/21/2024 9:00 AM CDT Office Visit [place] [address] [place] [address] Makenna Prather, UI UX ENGINEER Foot Pain 07/21/2024 MyChart Message Enc [place] [address] [place] [address] [place] [address] Melvin Ross MD Duloxetine 07/21/2024 Travel 07/19/2024 [facility] [place] [address] [place] [address] [place] [address] Melvin Ross MD Foot pain 07/15/2024 Telephone [facility], [address] [address] Melvin Ross MD Schedule Test 07/14/2024 3:00 PM CDT Office Visit [address] [place] [address] Melvin Ross MD Ankle Pain; Hypertension; Edema; Fatigue; Gi Problem; Attention Deficit Disorder 07/14/2024 Results Follow-Up [address] [place] [address] Melvin Ross MD EKG WELCHALLEN ACQUIRED, MG/PCCL UDS SCREEN 07/14/2024 Travel 07/11/[address] [place] [address] Melvin Ross MD Follow Up Call from Last 3 Months Immunizations Immunization Administration Dates Next Due Fluzone High Dose (IIV, trivalent, 0.5mL) 2023 Fluzone High Dose - >Age 65 (Prefilled Syringe) 01/21/2022,02/22/2020 Pneumococcal (Pneumovax 23) 03/22/2022 Pneumococcal (Prevnar 13) 11/15/2020,05/10/2019 Tdap (Generic) 2014 Family History Medical History Relation Comments Arthritis Brother 1 Arthritis Brother 2 Leukemia Father Dementia Mother Heart Disease Mother Hypertension Mother Relation Status Comments Brother 1 Alive Brother 2 Alive Father Mother Sister Alive Social History Tobacco Use Types Packs/Day Years Used Date Smoking Tobacco: Never Smokeless Tobacco: Never Tobacco Cessation:Counseling Given: Yes Comments:counseled by Dr Ross Alcohol Use Standard Drinks/Week Comments Yes 1.7 (1 standard drink = 0.6 oz p ure alcohol) 0-1/month B1300 Health Literacy Answer Date Recor ded How often do you need to hav e someone help you when you read instructions, pamphlets, or other written material from your doctor or pharmacy? Never 07/14/2024 [facility] Utilities Answer Date Recorded In the past 12 months has [facility] [employer], gas, oil, or water Eval[employer] threatened to shut off services in your [...] week 07/14/2024 How often do you attend [facility] or pentecostalism services? More than 4 times per year 07/14/2024 Do you belong to any clubs o r organizations such as mormonism groups, unions, fraternal or athletic groups, or [...] Recorded Patient Health Questionnaire-2 Score 1 07/21/2024 [place] [employer] [facility] - Occupational Stress [...] any time in the past 12 m [facility], were you homeless or living in a intermediate (including now)? 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 Not on shanell e Not on file Not on file Last Filed Vital Signs Vital Sign Reading Time Taken Comments Blood Pressure 118/78 08/11/2024 7:57 AM CDT Pulse 78 08/11/2024 7:57 AM CDT Temperature 36.7 C (98 F) 08/11/2024 7:57 AM CDT Respiratory Rate 14 08/11/2024 7:57 AM CDT Oxygen Saturation 98% 08/11/2024 7:57 AM CDT Inhaled Oxygen Concentration - - Weight 83.5 kg (184 lb) 08/11/2024 7:57 AM CDT Height 188 cm (6' 2) 08/11/2024 7:57 AM CDT Body Mass Index 23.62 08/11/2024 7:57 AM CDT Plan of Treatment Upcoming Encounters Date Type Department Care Team (Late st Contact Info) Description 10/25/2024 11:20 AM CDT Office Visit [facility] [place] [address] [place] [address] [address] [place] [address] Melvin Ross MD [address] [facility] [address] [place], [place] [id number] Health Maintenance Due Date Last Done Comments Zoster Vaccines (1 of 2) 07/23/2003 COVID-19 Vaccine (3 - season) 2023 10/07/2020, 09/09/2020 DTaP, Tdap and Td Vaccines (2 - Td or Tdap) 2024 2014 Annual Medicare Wellness Visit 11/25/2024 05/29/2022 Postponed from 05/31/2023 (Patient Refused) RSV Immunization or 60+ Years (1 - 1-dose 75+ series) 2028 Colorectal Cancer Screening Colonoscopy (10 Years) 12/04/2031 12/03/2021, 12/03/2021, 02/28/2021, Additional history exists Hepatitis C Completed 08/23/2021 Pneumococcal Vaccine: 50+ Years Completed 03/22/2022, 11/15/2020, 05/10/2019 PHQ-2 (Physician [place]) Completed 07/21/2024 Meningococcal B Vaccine Aged Out No l onger eligible based on patient's age to complete this topic Meningococcal Vaccine Aged Out No valerio wili eligible based on patient's age to complete this topic RSV Immunizations Under 20 Months Aged Out No longer eligible based on patient's age to complete this topic Procedures Procedure Name Priority Date/Time Associated Diagnosis Comments USE ECHOCARDIOGRAM W CON Routine 025 2:43 PM CDT Primary hypertension Localized swelling of lower extremity BASIC METABOLIC PANEL Routine 08/16/2024 10:58 AM CDT Hypokalemia MRI GENERIC 08/13/2024 MRI GENERIC 08/13/2024 TESTOSTERONE, FREE & TOTAL Routine 08/11/2024 8:24 AM CDT Drug therapy COMPREHENSIVE METABOLIC PANEL Routine 08/11/2024 8:24 AM CDT Drug therapy CBC W/DIFF AUTOMATED Routine 08/11/2024 8:24 AM CDT Drug therapy TSH W/REFLEX Routine 08/11/2024 8:24 AM CDT Drug therapy HEMOGLOBIN, GLYCOSYLATED Routine 025 8:24 AM CDT Drug therapy XR FOOT LT 3V Routine 2024 3:06 PM CDT Chronic pain in left foot MG/PCCL UDS SCREEN Routine 07/14/2024 4: 34 PM CDT Drug therapy ELECTROCARDIOGRAM (NON MIDMARK ACQUIRED) Routine 07/14/2024 4:04 PM CDT Drug therapy COLONOSCOPY Routine 12/03/2021 12:52 PM CDT HEPATITIS C ANTIBODY Routine 08/23/2021 2:19 PM CDT Annual physical exam Encounter for medical examination to establish care General medical exam Encounter for hepatitis C screening test for low risk patient from Last 3 Months or Most Recently Relevant to Health Maintenance Results * USE ECHOCARDIOGRAM W CON (09/08/2024 2:43 PM CDT) Anatomical Region Laterality Modality NA Echocardiogram 09/08/2024 1:28 PM CDT Narrative 09/12/2024 7:46 AM CDT Echocardiography Report Pat.Name: MIGUEL SADLER Pat.ID: [id number] .Date: 09/08/2024 : [id number] ELIZABETH PETERSON EWDPROV EWDPROV Exam Time: 1:28:00 PM Study Type:ECHO WITH CARDIAC DOPPLER COMP Height: 74 in Weight: 184 lb BSA: 2.1 m2 Age: 5 1955,69Y Sex: M BP: 149/74 HR: 71 bpm Sonogrphr: Lydia Samuel [facility] Pat. Stat.:Outpatient Reason for Study:HTN, lower exteremity swelling Procedures: 2D, M-mode, Doppler, Color Flow, Definity was used to enhance endocardial definition. The study quality is technically difficult. Race: W ++++++++++++++++++++++++++++++++++++ SUMMARY: ++++++++++++++++++++++++++++++++++++ The left ventricular size is normal. Estimated left ventricular ejection fraction is 65-70%. Mild concentric left ventricular hypertrophy. Left ventricular diastolic function is normal. The right ventricular size is normal. Right ventricular systolic function is normal. The left atrial size is normal. Right atrial size is normal. Mild of tricuspid regurgitation. Right ventricular systolic pressure is <35 mmHg. ++++++++++++++++++++++++++++++++++++ FINDINGS: ++++++++++++++++++++++++++++++++++++ LV: The left ventricular size is normal. Estimated left ventricular ejection fraction is 65-70%. Mild concentric left ventricular hypertrophy. WM: Wall motion appears normal in all segments. RV: The right ventricular size is normal. Right ventricular systolic function is normal. IVS: No evidence of ventricular septal defect. LA: The left atrial size is normal. RA: Right atrial size is normal. IAS: Atrial septum appears intact. PANCHO: No evidence of pericardial effusion. AO: Normal aortic root. PA: Estimated right atrial pressure of 3 mmHg. SVn: Inferior vena cava is normal. AV: The aortic valve is trileaflet. No evidence of aortic valve stenosis. No evidence of aortic regurgitation. MV: Trace mitral regurgitation. No evidence of mitral valve stenosis. PV: Trace pulmonic regurgitation. No evidence of pulmonic valve stenosis. TV: Mild of tricuspid regurgitation. Right ventricular systolic pressure is <35 mmHg. No evidence of tricuspid valve stenosis. ++++++++++++++++++++++++++++++++++++ MEASUREMENTS: ++++++++++++++++++++++++++++++++++++ DOPPLER LVOT LVOTpkPG 4.2 mmHg LVOT SV 71.6 ml LVOT TVI 18.3 cm PSV 103 cm/s LVOTmnPG 2.4 mmHg Pulmonary Veins PVnpkVeld 20 cm/s PVnVs/Vd 1.95 PVnpkVels 39 cm/s PVn A Dur 122 msec AV Forward Flow AV TVI 24.7 cm AV pkPG 5.7 mmHg AV pkVel 119 cm/s (100-170) Area (TVI) 2.9 cm2 (3-5)* AV mnPG 3.8 mmHg Area (Eddie) 3.38 cm2 (3-5) MV Forward Flow MV pkE 55 cm/s (60-130)* MV pkA 80 cm/s PV Forward Flow PV pkVel 123 cm/s (60-90)+* PV AC 85 msec PV pkPG 6.1 mmHg TV Regurg Flow TV pkPG 26.6 mmHg TV pkVel 258 cm/s (30-70)* TV Forward Flow TV pkE 48 cm/s Lat E' Lat e 11.2 cm/s Lat E/E' Lat E/e 4.92 Med E' Med e 7.35 cm/s Med E/E' Med E/e 7.48 AV Antegrade Flow AV AC/ET 0.31 Ratio of LVOT M 0.87 AC 80 millisecond Ratio of LVOT V 0.743 AV ET 261 millisecond Left Atrium CO 1.1 l/min CO 1.1 l/min Left Atrial Eje 29.6 % Left Atrial Eje 59.4 % [place] (End 4.5 cm [place] (End 3 cm Left Atrial ED 16.7 ml/m2 Left Atrial ED 5.1 ml/m2 [place] (End 4.5 cm [place] (End 4 cm Left Atrial ES 23.7 ml/m2 Left Atrial ES 12.4 ml/m2 Global Longitud 4.9 % Global Longitud 35.5 % HR 73 bpm HR 68 bpm SV 7 ml/m2 SV 7.4 ml/m2 LA Biplane CO 1 l/min Left Atrial ES 18.2 ml/m2 Left Atrial Eje 38.4 % Global Longitud 20.2 % [place] (End 4.5 cm HR 73 bpm Left Atrial ED 11.2 ml/m2 SV 7 ml/m2 [place] (End 4.5 cm Left Ventricle Left Ventricula 155 mmHg SV 23.5 ml/m2 MV Pk Eddie to LV 5.94 CO 5.1 l/min CO 3.5 l/min LVEF 57.6 % LVEF 55.2 % Left Ventricle 9.5 cm Left Ventricle 9.1 cm LVEDV 62.5 ml/m2 LVEDV 43.8 ml/m2 Left Ventricle 7.5 cm Left Ventricle 7.7 cm LVESV 25.7 ml/m2 LVESV 20.4 ml/m2 Global Longitud -23.2 % Global Longitud -16.7 % HR 67 bpm HR 72 bpm LV Mass 61.8 g/m2 LV Mass 49.9 g/m2 SV 36.7 ml/m2 LV Biplane CO 4.3 l/min LVESV 23.4 ml/m2 LVEF 56.5 % Global Longitud -20 % Left Ventricle 9.5 cm HR 72 bpm LVEDV 52.9 ml/m2 LV Mass 57.7 g/m2 Left Ventricle 7.9 cm SV 29.5 ml/m2 LV Triplane Global Longitud -20 % MV Antegrade Flow Mitral Valve A 1.45 MV E Decel time 411 millisecond MV E/A 0.69 PV Antegrade Flow Acceleration Sl 1401 cm/s2 Right Atrium CO 0.6 l/min Volume (Systole 13.4 ml/m2 Cardiac ejectio 33.3 % Global Longitud 10.5 % [place] (End 3.8 cm HR 68 bpm Volume (Diastol 9 ml/m2 SV 4.4 ml/m2 [place] (End 4 cm Right Ventricle Right Ventricul 12.8 centimeters per second Right Ventricul 28.2 % Right Ventricul 12 square centimeters per square meter Global Longitud -16.4 % [place] (End 8.5 cm Global Longitud -19.1 % [place] (End 7.3 cm Global Longitud -13 % Right Ventricul 8.6 square centimeters per square meter HR 68 bpm 2D LVPW LVPWd 1.09 cm Ratios IVS Ventricular Septum IVSd 1.18 cm Left Ventricle LVIDd 4.41 cm (4.3-5.1) LV Mass 177 gram LVIDs 2.96 cm (2-4) Left Ventricle 0.49 Aorta AO Dd 1.88 cm LVOT Cardiovascular 3.91 cm2 Cardiovascular 2.23 cm Right Ventricle RVIDd 1.47 cm/m2 [place] (Zabrina 8.83 cm Fzjoz-pt-eglb v 0.7 RVIDd 3.11 cm MMODE Aorta Ao Rt 3.98 cm (2-3.7)* Tricuspid Valve Tricuspid annul 1.67 cm <Electronic Signature> 09/12/2024 07:46 AM Elissa Johnson M.D. Procedure Note Elissa Johnson MD - 09/12/2024 Echocardiography Report Pat.Name: MIGUEL SADLER Juan Pat.ID: [id number] .Date: 09/08/2024 : [id number] ELIZABETH PETERSON EWDPROV EWDPROV Exam Time: 1:28:00 PM Study Type:ECHO WITH CARDIAC DOPPLER COMP Height: 74 in Weight: 184 lb BSA: 2.1 m2 Age: 5 1955,69Y Sex: M BP: 149/74 HR: 71 bpm Sonogrphr: Lydia Samuel [facility] Pat. Stat.:Outpatient Reason for Study:HTN, lower exteremity swelling Procedures: 2D, M-mode, Doppler, Color Flow, Definity was used to enhance endocardial definition. The study quality is technically difficult. Race: W ++++++++++++++++++++++++++++++++++++ SUMMARY: ++++++++++++++++++++++++++++++++++++ The left ventricular size is normal. Estimated left ventricular ejection fraction is 65-70%. Mild concentric left ventricular hypertrophy. Left ventricular diastolic function is normal. The right ventricular size is normal. Right ventricular systolic function is normal. The left atrial size is normal. Right atrial size is normal. Mild of tricuspid regurgitation. Right ventricular systolic pressure is <35 mmHg. ++++++++++++++++++++++++++++++++++++ FINDINGS: ++++++++++++++++++++++++++++++++++++ LV: The left ventricular size is normal. Estimated left ventricular ejection fraction is 65-70%. Mild concentric left ventricular hypertrophy. WM: Wall motion appears normal in all segments. RV: The right ventricular size is normal. Right ventricular systolic function is normal. IVS: No evidence of ventricular septal defect. LA: The left atrial size is normal. RA: Right atrial size is normal. IAS: Atrial septum appears intact. PANCHO: No evidence of pericardial effusion. AO: Normal aortic root. PA: Estimated right atrial pressure of 3 mmHg. SVn: Inferior vena cava is normal. AV: The aortic valve is trileaflet. No evidence of aortic valve stenosis. No evidence of aortic regurgitation. MV: Trace mitral regurgitation. No evidence of mitral valve stenosis. PV: Trace pulmonic regurgitation. No evidence of pulmonic valve stenosis. TV: Mild of tricuspid regurgitation. Right ventricular systolic pressure is <35 mmHg. No evidence of tricuspid valve stenosis. ++++++++++++++++++++++++++++++++++++ MEASUREMENTS: ++++++++++++++++++++++++++++++++++++ DOPPLER LVOT LVOTpkPG 4.2 mmHg LVOT SV 71.6 ml LVOT TVI 18.3 cm PSV 103 cm/s LVOTmnPG 2.4 mmHg Pulmonary Veins PVnpkVeld 20 cm/s PVnVs/Vd 1.95 PVnpkVels 39 cm/s PVn A Dur 122 msec AV Forward Flow AV TVI 24.7 cm AV pkPG 5.7 mmHg AV pkVel 119 cm/s (100-170) Area (TVI) 2.9 cm2 (3-5)* AV mnPG 3.8 mmHg Area (Eddie) 3.38 cm2 (3-5) MV Forward Flow MV pkE 55 cm/s (60-130)* MV pkA 80 cm/s PV Forward Flow PV pkVel 123 cm/s (60-90)+* PV AC 85 msec PV pkPG 6.1 mmHg TV Regurg Flow TV pkPG 26.6 mmHg TV pkVel 258 cm/s (30-70)* TV Forward Flow TV pkE 48 cm/s Lat E' Lat e 11.2 cm/s Lat E/E' Lat E/e 4.92 Med E' Med e 7.35 cm/s Med E/E' Med E/e 7.48 AV Antegrade Flow AV AC/ET 0.31 Ratio of LVOT M 0.87 AC 80 millisecond Ratio of LVOT V 0.743 AV ET 261 millisecond Left Atrium CO 1.1 l/min CO 1.1 l/min Left Atrial Eje 29.6 % Left Atrial Eje 59.4 % [place] (End 4.5 cm [place] (End 3 cm Left Atrial ED 16.7 ml/m2 Left Atrial ED 5.1 ml/m2 [place] (End 4.5 cm [place] (End 4 cm Left Atrial ES 23.7 ml/m2 Left Atrial ES 12.4 ml/m2 Global Longitud 4.9 % Global Longitud 35.5 % HR 73 bpm HR 68 bpm SV 7 ml/m2 SV 7.4 ml/m2 LA Biplane CO 1 l/min Left Atrial ES 18.2 ml/m2 Left Atrial Eje 38.4 % Global Longitud 20.2 % [place] (End 4.5 cm HR 73 bpm Left Atrial ED 11.2 ml/m2 SV 7 ml/m2 [place] (End 4.5 cm Left Ventricle Left Ventricula 155 mmHg SV 23.5 ml/m2 MV Pk Eddie to LV 5.94 CO 5.1 l/min CO 3.5 l/min LVEF 57.6 % LVEF 55.2 % Left Ventricle 9.5 cm Left Ventricle 9.1 cm LVEDV 62.5 ml/m2 LVEDV 43.8 ml/m2 Left Ventricle 7.5 cm Left Ventricle 7.7 cm LVESV 25.7 ml/m2 LVESV 20.4 ml/m2 Global Longitud -23.2 % Global Longitud -16.7 % HR 67 bpm HR 72 bpm LV Mass 61.8 g/m2 LV Mass 49.9 g/m2 SV 36.7 ml/m2 LV Biplane CO 4.3 l/min LVESV 23.4 ml/m2 LVEF 56.5 % Global Longitud -20 % Left Ventricle 9.5 cm HR 72 bpm LVEDV 52.9 ml/m2 LV Mass 57.7 g/m2 Left Ventricle 7.9 cm SV 29.5 ml/m2 LV Triplane Global Longitud -20 % MV Antegrade Flow Mitral Valve A 1.45 MV E Decel time 411 millisecond MV E/A 0.69 PV Antegrade Flow Acceleration Sl 1401 cm/s2 Right Atrium CO 0.6 l/min Volume (Systole 13.4 ml/m2 Cardiac ejectio 33.3 % Global Longitud 10.5 % Major [place] (End 3.8 cm HR 68 bpm Volume (Diastol 9 ml/m2 SV 4.4 ml/m2 [place] (End 4 cm Right Ventricle Right Ventricul 12.8 centimeters per second Right Ventricul 28.2 % Right Ventricul 12 square centimeters per square meter Global Longitud -16.4 % Major [place] (End 8.5 cm Global Longitud -19.1 % Major [place] (End 7.3 cm Global Longitud -13 % Right Ventricul 8.6 square centimeters per square meter HR 68 bpm 2D LVPW LVPWd 1.09 cm Ratios IVS Ventricular Septum IVSd 1.18 cm Left Ventricle LVIDd 4.41 cm (4.3-5.1) LV Mass 177 gram LVIDs 2.96 cm (2-4) Left Ventricle 0.49 Aorta AO Dd 1.88 cm LVOT Cardiovascular 3.91 cm2 Cardiovascular 2.23 cm Right Ventricle RVIDd 1.47 cm/m2 Major [place] (Zabrina 8.83 cm Tmihc-bw-fgab v 0.7 RVIDd 3.11 cm MMODE Aorta Ao Rt 3.98 cm (2-3.7)* Tricuspid Valve Tricuspid annul 1.67 cm <Electronic Signature> 09/12/2024 07:46 AM Elissa Johnson M.D. us Melvin Ross MD ECHO Final Result * (ABNORMAL) BASIC METABOLIC PANEL (08/16/2024 10:58 AM CDT) SODIUM S/P/B 137 136 - 145 MMOL/L 08/16/2024 8:03 PM T [facility] POTASSIUM S/P/B 3.0(L) 3.5 - 5.1 MMOL/L 08/16/2024 8:42 PM T [facility] Comment:RESULTS CONFIRMED-TE ST REPEATED CHLORIDE S/P/B 95(L) 98 - 107 MMOL/L 08/16/2024 8:42 PM T [facility] CO2 37.9(H) 21 - 32 MMOL/L 08/16/2024 8:42 PM T [facility] Comment:RESULTS CONFIRMED-TE ST REPEATED GLUCOSE 89 70 - 99 MG/DL 08/16/2024 8:03 PM [facility] BUN 11 7 - 18 MG/DL 08/16/2024 8:03 PM T [facility] CREATININE S/P/B 1.01 0.70 - 1.30 MG/DL 08/16/2024 8:03 PM T [facility] CALCIUM S/P/B 9.0 8.4 - 10.5 MG/DL 08/16/2024 8:03 PM T [facility] ANION GAP 4.1(L) 5 - 15 MMOL/L 08/16/2024 8:42 PM T [facility] Comment:REFERENCE RANGE NOT ESTABLISHED OSMOLALITY (CALC) 283 MOSM/KG 025 8:03 PM T [facility] Comment:REFERENCE RANGE NOT ESTABLISHED GFR ESTIMATE 80(L) >90 ML/MIN/1. 73 M2 08/16/2024 8:03 PM T [facility] GFR NOTES GFR REFERENCE S: 08/16/2024 8:03 PM T [facility] Comment: THE ESTIMATED GFR IS CALCULATED USING THE 2020 CKD-EPI EQUATION. THE FOLLOWING CATEGORIES FOR GRADING RENAL FUNCTION ARE RECOMMENDED BY THE INTERNATIONAL SOCIETY OF NEPHROLOGY (KDIGO 2012 CLINICAL PRACTICE GUIDELINE). G1,NORMAL OR HIGH: >89 ml/min/1.73 m2 G2,MILDLY DECREASED: 60-89 ml/min/1.73 m2 G3A,MILDLY TO MODERATELY DECREASED: 45-59 ml/min/1.73 m2 G3B,MODERATELY TO SEVERELY DECREASED: 30-44 ml/min/1.73 m2 G4,SEVERELY DECREASED: 15-29 ml/min/1.73 m2 G5,KIDNEY FAILURE: <15 ml/min/1.73 m2 08/16/2024 10:5 8 AM CDT Melvin Ross MD LABORATORY Final Result Performing Organization Address [facility] de Phone Number [address] [address], * MRI GENERIC (08/13/2024) Only the most recent of2 resultswithin the time period is included. Anatomical Region Laterality Modality Other 08/13/2024 [facility] Scanned SCANNING Final Resu lt * TSH W/REFLEX (08/11/2024 8:24 AM CDT) TSH 0.860 0.358 - 3.740 uIU/ML 08/11/2024 3:38 PM CDT [facility] 08/11/2024 8:24 AM CDT Melvin Ross MD LABORATORY Final Result Performing Organization Address [facility] de Phone Number [facility] [address] [place] [address], * (ABNORMAL) HEMOGLOBIN, GLYCOSYLATED (08/11/2024 8:24 AM CDT) HGB A1C 5.4 4.5 - 6.2 % 08/11/2024 4:00 PM CDT [facility] [place] ESTIMATED AVG GLUCOSE 108(H) 74 - 106 MG/DL 08/11/2024 4:00 PM CDT [facility] 08/11/2024 8:24 AM CDT Melvin Ross MD LABORATORY Final Result [facility] [place], [place] [address] [place] [address], * TESTOSTERONE, FREE & TOTAL (08/11/2024 8:24 AM CDT) TESTOSTERONE TOTAL 664 250 - 1,100 ng/dL [facility] Comment: For additional information, please refer to https://education.Kaiima/faq/CII047 (This link is being provided for informational/educational purposes only.) (Note) This test was developed and its analytical performance characteristics have been determined by [employer]. It has not been cleared or approved by the FDA. This assay has been validated pursuant to the CLIA regulations and is used for clinical purposes. TESTOSTERONE FREE 76.9 30.0 - 135.0 pg/mL [facility] Comment: (Note) This test was developed and its analytical performance characteristics have been determined by [employer]. It has not been cleared or approved by the FDA. This assay has been validated pursuant to the CLIA regulations and is used for clinical purposes. MD med fusion [address] [place] [address],[address] [facility] [address] Luis Matias MD, PhD 08/11/2024 8:24 AM CDT 08/12/2024 5:59 AM CDT Narrative Resulting Agency Comment Performing Organization Information: Site ID: [id number] Name: [facility] Address: [address], [address] [place] [address] Director: Luis Matias MD,PhD Melvin Ross MD LABORATORY Final Result [facility] [address] [address], [address] [place] [address], * (ABNORMAL) COMPREHENSIVE METABOLIC PANEL (08/11/2024 8:24 AM CDT) SODIUM S/P/B 137 136 - 145 MMOL/L 08/11/2024 3:38 PM CDT [facility] POTASSIUM S/P/B 3.1(L) 3.5 - 5.1 MMOL/L 08/11/2024 3:38 PM CDT [facility] CHLORIDE S/P/B 97(L) 98 - 107 MMOL/L 08/11/2024 3:38 PM CDT [facility] CO2 36.1(H) 21 - 32 MMOL/L 08/11/2024 3:43 PM CDT [facility] Comment:RESULTS CONFIRMED-TE ST REPEATED GLUCOSE 92 70 - 99 MG/DL 08/11/2024 3:38 PM CDT [facility] BUN 12 7 - 18 MG/DL 08/11/2024 3:38 PM CDT [facility] CREATININE S/P/B 0.97 0.70 - 1.30 MG/DL 08/11/2024 3:38 PM CDT [facility] CALCIUM S/P/B 9.2 8.4 - 10.5 MG/DL 08/11/2024 3:38 PM CDT [facility] BILIRUBIN TOTAL S/P/B 0.6 0.2 - 1.0 MG/DL 08/11/2024 3:38 PM CDT [facility] ALKALINE PHOSPHATASE S/P/B 57 45 - 115 U/L 08/11/2024 3:38 PM CDT [facility] AST 32 15 - 37 U/L 08/11/2024 3:38 PM CDT [facility] ALT 35 16 - 63 U/L 08/11/2024 3:38 PM CDT [facility] TOTAL PROTEIN S/P/B 6.7 6.4 - 8.2 G/DL 08/11/2024 3:38 PM T [facility] ALBUMIN S/P/B 3.9 3.4 - 5.0 G/DL 08/11/2024 3:38 PM CDT [facility] ANION GAP 3.9(L) 5 - 15 MMOL/L 08/11/2024 3:43 PM CDT [facility] Comment:REFERENCE RANGE NOT ESTABLISHED OSMOLALITY (CALC) 283 MOSM/KG 025 3:38 PM T [facility] Comment:REFERENCE RANGE NOT ESTABLISHED GFR ESTIMATE 83(L) >90 ML/MIN/1. 73 M2 08/11/2024 3:38 PM T [facility] GFR NOTES GFR REFERENCE S: 08/11/2024 3:38 PM T [facility] Comment: THE ESTIMATED GFR IS CALCULATED USING THE 2020 CKD-EPI EQUATION. THE FOLLOWING CATEGORIES FOR GRADING RENAL FUNCTION ARE RECOMMENDED BY THE INTERNATIONAL SOCIETY OF NEPHROLOGY (KDIGO 2012 CLINICAL PRACTICE GUIDELINE). G1,NORMAL OR HIGH: >89 ml/min/1.73 m2 G2,MILDLY DECREASED: 60-89 ml/min/1.73 m2 G3A,MILDLY TO MODERATELY DECREASED: 45-59 ml/min/1.73 m2 G3B,MODERATELY TO SEVERELY DECREASED: 30-44 ml/min/1.73 m2 G4,SEVERELY DECREASED: 15-29 ml/min/1.73 m2 G5,KIDNEY FAILURE: <15 ml/min/1.73 m2 08/11/2024 8:24 AM CDT Melvin Ross MD LABORATORY Final Result [facility] [address] [place] [address], * CBC W/DIFF AUTOMATED (08/11/2024 8:24 AM CDT) [facility] WBC 5.41 4.00 - 10.80 x10'3/uL 08/11/2024 3:04 PM CDT [facility] RBC 4.78 4.50 - 6.10 x10'6/uL 08/11/2024 3:04 PM CDT [facility] HGB 14.1 13.0 - 18.0 G/DL 08/11/2024 3:04 PM CDT [facility] HCT 42.1 37.0 - 52.0 % 08/11/2024 3:04 PM CDT [facility] MCV 88.1 78.0 - 100.0 FL 08/11/2024 3:04 PM CDT [facility] MCH 29.5 27.0 - 31.0 PG 08/11/2024 3:04 PM CDT [facility] MCHC 33.5 33.0 - 36.0 G/DL 08/11/2024 3:04 PM CDT [facility] RDW 13.6 11.5 - 14.5 % 08/11/2024 3:04 PM CDT [facility] PLT 220 150 - 350 x10'3/uL 08/11/2024 3:04 PM CDT [facility] MPV 9.4 7.4 - 10.4 FL 08/11/2024 3:04 PM CDT [facility] DIFFERENTIAL TYPE AUTOMATED DIFFERENTIAL 08/11/2024 3:04 PM CDT [facility] NEUTROPHILS % 58.0 % 08/11/2024 3:04 PM CDT [facility] LYMPHOCYTES % 24.4 % 08/11/2024 3:04 PM CDT [facility] MONOCY[facility] % 13.7 % 08/11/2024 3:04 PM CDT [facility] EOSINOPHILS % 3.0 % 08/11/2024 3:04 PM CDT [facility] BASOPHILS % 0.9 % 08/11/2024 3:04 PM CDT [facility] IMMATURE GRANS % 0.0 % 08/11/2024 3:04 PM CDT [facility] ABS. NEUTROPHILS 3.14 1.60 - 8.30 x10'3/uL 08/11/2024 3:04 PM CDT [facility] ABS. LYMPHOCYTES 1.32 0.80 - 4.70 x10'3/uL 08/11/2024 3:04 PM CDT [facility] ABS. MONOCYTES 0.74 0.00 - 1.50 x10'3/uL 08/11/2024 3:04 PM CDT [facility] ABS. EOSINOPHILS 0.16 0.00 - 0.40 x10'3/uL 08/11/2024 3:04 PM CDT [facility] ABS. BASOPHILS 0.05 0.00 - 0.20 x10'3/uL 08/11/2024 3:04 PM CDT [facility] ABS. IMMATURE GRANULOCYTES 0.00 0.00 - 0.03 x10'3/uL 08/11/2024 3:04 PM CDT [facility] 08/11/2024 8:24 AM CDT us Melvin Ross MD LABORATORY Final Result [facility] [address] [place] [address], * XR FOOT LT 3V (2024 3:06 PM CDT) Anatomical Region Laterality Modality Foot Radiographic Lacie ging 2024 2:56 PM CDT Narrative 07/23/2024 6:53 AM CDT [facility] Internal [place] [id number] Examination: Left foot 3 views Exam Date/Time: 2024 2:56 PM Reason For Exam: chronic pain left foot, arch, numbness/tinglign Chronic left foot pain. Numbness and tingling Comparison: None Technique: AP, oblique, and lateral views of the left foot were obtained. Findings: Flattening of the second metatarsal head may be Freiberg's infraction. No ankle joint effusion. Extension of all MTP joints causes some overlap and minimally limits evaluation. No convincing fracture or dislocation. No convincing osseous erosions or destructive lesions. No soft tissue calcification deposits. No radiopaque foreign bodies. No convincing subluxations. ===== IMPRESSION: ===== 1. Flattening of second metatarsal head may be Freiberg's infraction. 2. No acute osseous abnormalities. Referred By: Interpreted By: Keith Helton MD, 07/23/2024 6:52 AM Procedure Note Keith Helton MD - 07/23/2024 [facility] Internal [facility] - [address] [address] Examination: Left foot 3 views Exam Date/Time: 2024 2:56 PM Reason For Exam: chronic pain left foot, arch, numbness/tinglign Chronic left foot pain. Numbness and tingling Comparison: None Technique: AP, oblique, and lateral views of the left foot wereobtained. Findings: Flattening of the second metatarsal head may be Freiberg'sinfraction. No ankle joint effusion. Extension of all MTP joints causessome overlap and minimally limits evaluation. No convincing fracture ordislocation. No convincing osseous erosions or destructive lesions. Nosoft tissue calcification deposits. No radiopaque foreign bodies. Noconvincing subluxations. ===== IMPRESSION: ===== 1. Flattening of second metatarsal head may be Freiberg's infraction. 2. No acute osseous abnormalities. Referred By: Interpreted By: Keith Helton MD, 07/23/2024 6:52 AM Makenna Prather NP GENERAL IMAGING Final Resul t * (ABNORMAL) MG/PCCL UDS SCREEN (07/14/2024 4:34 PM CDT) FENTANYL SCREEN (U) NEGATIVE <0.5 ng/mL [facility] Comment: See Note A See Note A MORPHINE (U) NEGATIVE <10 ng/mL [facility] Comment: See Note A See Note A AMPHETAMINES PM NEGATIVE <500 ng/mL [facility] Comment: See Note A See Note A BARBITURATES PM (U) NEGATIVE <300 ng/mL [facility] Comment: See Note A See Note A BENZODIAZEPINES PM (U) NEGATIVE <100 ng/mL [facility] Comment: See Note A See Note A COCAINE METABOLITE PM (U) NEGATIVE <150 ng/mL [facility] Comment: See Note A See Note A MARIJUANA METABOLITE PM (U) NEGATIVE <20 ng/mL [facility] Comment: See Note A See Note A METHADONE PM (U) NEGATIVE <100 ng/mL [facility] Comment: See Note A See Note A OPIATES PM (U) POSITIVE(A) <100 ng/mL [facility] Comment: See Note A See Note A OXYCODONE PM (U) POSITIVE(A) <100 ng/mL [facility] Comment: See Note A See Note A CREATININE RANDOM (U) 119.7 > or = 20.0 mg/dL [facility] pH PM (U) 6.3 4.5 - 9.0 [facility] OXIDANT NEGATIVE <200 mcg/mL [facility] NOTE [facility] Comment: This drug testing is for medical treatment only. Analysis was performed as non-forensic testing and these results should be used only by healthcare providers to render diagnosis or treatment, or to monitor progress of medical conditions. Note A: The results are presumptive; based only on screening methods, and they have not been confirmed by a definitive method. LDT Notes: Confirmation tests were developed and their analytical performance characteristics have been determined by [facility]. It has not been cleared or approved by the FDA. This assay has been validated pursuant to the CLIA regulations and is used for clinical purposes. Healthcare Providers needing Interpretation assistance, please contact us at [phone] ([phone]) M-F, 8am to 10pm EST URINE SPECIMEN / Unknown 07/14/2024 4:34 PM CDT 07/16/2024 1:22 AM CDT Narrative Resulting Agency Comment Performing Organization Information: Site ID: [id number] [facility] Address: [address] [place] [address] Director: Jose Alberto Desouza Site ID: [id number] [facility] Address: [address] [place] [address] Director: Ellis Butcher MD Melvin Ross MD URINE ORDERABLES Final Result [facility] [employer] [id number] [place] [id number] [place] [id number] * EKG WELCHALLEN ACQUIRED (07/14/2024 4:04 PM CDT) 07/14/2024 4:04 PM CDT Narrative [facility] - 07/19/2024 9:21 PM CDT [facility] [place] [address] Test Date: 2024-07-14 Pat Name: MIGUEL SADLER Department: 171 Room: Gender: Male Cardiology Clinical Nurse Specialist: : 1955 Requested By: MELVIN ROSS Order Number: [id number] Reading MD: Melvin Ross Measurements Intervals [place] Rate: 55 P: 142 ND: 187 QRS: 204 QRSD: 94 T: 151 QT: 398 QTc: 382 Interpretive Statements SINUS BRADYCARDIA WITH OCCASIONAL VENTRICULAR PREMATURE COMPLEXES ARM LEADS REVERSED Procedure Note Melvin Ross MD - 07/19/2024 [facility] [address] [place] [address] Test Date: 2024-07-14 Pat Name: MIGUEL SADLER Department: 171 Room: Gender: Male Cardiology Clinical Nurse Specialist: : 1955 Requested By: MELVIN ROSS Order Number: [id number] Reading MD: Melvin Ross Measurements Intervals [place] Rate: 55 P: 142 ND: 187 QRS: 204 QRSD: 94 T: 151 QT: 398 QTc: 382 Interpretive Statements SINUS BRADYCARDIA WITH OCCASIONAL VENTRICULAR PREMATURE COMPLEXES ARM LEADS REVERSED Melvin Ross MD PROCEDURES-ORDERABLE NO CHARGE F inal Result [facility] * HEPATITIS C ANTIBODY (08/23/2021 2:19 PM CDT) HEPATITIS C AB NON-REACTI VE NON-REACT MARCE 08/24/2021 7:40 PM CDT [facility] Comment: ANTIBODIES TO HCV NOT DETECTED. DOES NOT EXCLUDE THE POSSIBILITY OF EXPOSURE TO HCV. 08/23/2021 2:19 PM CDT Melvin Ross MD LABORATORY Final Result [facility] [address] [place] [address], [phone] * COLONOSCOPY GENERIC (02/28/2021) 02/28/2021 Narrative 02/28/2021 Ordered by an unspecified provider. us Documents Scanned SCANNING Final Result from Last 3 Months or Most Recently Relevant to Health Maintenance Insurance [facility] Care Teams Machinist Supervisor Outside Relationship Specialty Start Date End Date Melvin Ross MD [address] [facility] [address] [place], [place] [phone] PCP - General INTERNAL MEDICINE 08/23/21 [place] [address] [place] [address] Consulting Physician UROLOGY 05/29/22 Cortez Renee MD [address] [place] [address] Surgeon NEUROLOGICAL SURGERY 05/29/22 Enrico Millan MD [facility] [facility] [address] [place] [address] Referring Physician SPORTS MEDICINE 01/21/24
--- OUTSIDE RECORDS SUMMARY | 2024-09-20 13:26 | XMS_ITS | Encounter Summary ---
Author Organization [facility] Address [facility] [place] [address] Care Team Providers Care Director Retirement Name Role Phone Melvin Ross MD Primary Care Provider [phone] Karime Johnston MD Unavailable [phone] Cortez Renee MD Unavailable [phone] Enrico Millan MD Unavailable [phone] Encounter Details Date Type Department Care Team (Late st Contact Info) Description 01/18/2022 [employer] Message Enc [facility] Medical Group Multispecialty Care - [address] [place] [address] Jessie, [facility] Provider thyroid result Social History Tobacco Use Types Packs/Day Years [...] PM CDT 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 No / Unsure 01/21/2022 2:00 PM GUEST ASSOCIATE documented as of this encounter Plan of Treatment Upcoming Encounters Date Type Department Care Team (Late st Contact Info) Description 10/25/2024 11:20 AM CDT Office Visit [facility] Multispecialty Care - [address] [place] [address] [address] [place] [address] Melvin Ross MD [address] [place] [address] documented as of this encounter Visit Diagnoses Not on filedocumented in this encounter Additional Health Concerns Assessment Noted Time PHQ-9 Depression Total Score: 10 022 11:18 AM CDT documented as of this encounter Care Teams Director Retirement Relationship Specialty Start Date End Date Melvin Ross MD [address] [place] [address] PCP - General INTERNAL MEDICINE 08/23/21 [place] [address] [place] [address] Consulting Physician UROLOGY 05/29/22 Cortez Renee MD [address] [place] [address] Surgeon NEUROLOGICAL SURGERY 05/29/22 Enrico Millan MD [address] [facility] [address] [place] [address] Referring Physician SPORTS MEDICINE 01/21/24 documented as of this encounter
--- OUTSIDE RECORDS SUMMARY | 2024-09-20 13:26 | XMS_ITS | Encounter Summary ---
Author Organization [facility] Address [facility] [place] [address] Care Team Providers Care Element Burner Name Role Phone Melvin Ross MD Primary Care Provider [phone] Karime Johnston MD Unavailable [phone] Cortez Renee MD Unavailable [phone] Enrico Millan MD Unavailable [phone] Reason for Referral * Surgical (Routine) - Closed Specialty Diagnoses / Procedures Referred By Contyesenia t Referred To Contact Procedures Case request operating room: INJECTION EPIDURAL LUMBAR INTERLAMINAR L4-5 Corin Braxton APNP Phone: tel: fax: Referral ID Status Reason Start Date Expiration Date Visits Re quested Visits Authorized [id number] Closed 12/04/2021 12/04/2022 1 1 Encounter Details Date Type Department Care Team (Late st Contact Info) Description 12/04/2021 Prep for Procedure [facility] [place], [place] [phone] [id number] Corin Braxton APNP [address] [place] [phone] Social History Tobacco Use Types Packs/Day Years [...] PM CDT 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 Wish to be (Past 1 Month) No 12/04/2021 1:36 PM CDT Danitza Mota RN Activ e 2. Non-Specific Active Suicidal Thoughts (Past 1 Month) No 12/04/2021 1:36 PM CDT Danitza Mota RN Activ e 6. Suicidal Behavior (Lifetime) No 12/04/2021 1:36 PM CDT Danitza Mota RN Activ e documented as of this encounter Plan of Treatment Upcoming Encounters Date Type Department Care Team (Late st Contact Info) Description 10/25/2024 11:20 AM CDT Office Visit [facility] Medical [facility] Multispecialty Care - [address] [address] [address] [place] [address] Melvin Ross MD [address] [place] [address] [address] [place] [address] Scheduled Orders Name Type Priority Associated Diagnoses Orde r Schedule Case request operating room: INJECTION EPIDURAL LUMBAR INTERLAMINAR L4-5 Case Request Routine Once for 1 Occurrences starting 12/04/2021 until 12/04/2021 documented as of this encounter Visit Diagnoses Not on filedocumented in this encounter Additional Health Concerns Assessment Noted Time PHQ-9 Depression Total Score: 10 022 11:18 AM CDT documented as of this encounter Care Teams Element Burner Relationship Specialty Start Date End Date Melvin Ross MD [address] [facility] [address] [place] [address] PCP - General INTERNAL MEDICINE 08/23/21 [place] [address] [place] [phone] Consulting Physician UROLOGY 05/29/22 Cortez Renee MD [address] [place] [address] Surgeon NEUROLOGICAL SURGERY 05/29/22 Enrico Millan MD [address] [facility] [address] [place] [address] Referring Physician SPORTS MEDICINE 01/21/24 documented as of this encounter
--- OUTSIDE RECORDS SUMMARY | 2024-09-20 13:26 | XMS_ITS | Encounter Summary ---
Author Organization [facility] - [facility] Address [facility] [place] [address] Care Team Providers Care Hunting And Fishing Guide Name Role Phone Melvin Ross MD Primary Care Provider [phone] Karime Johnston MD Unavailable [phone] Cortez Renee MD Unavailable [phone] Enrico Millan MD Unavailable [phone] Encounter Details Date Type Department Care Team (Latest Contact Info) Description 12/05/2021 Quietyme Message Enc [facility] Multispecialty Care - [facility] [address] [facility], [address] [place] [address] April Morris NP 3 [facility] [place] [address] Post EGD/Colonoscopy Social History Tobacco Use Types Packs/Day Years [...] PM CDT Legal Sex Male 1:[address] LIAISON Gender Identity Male 07/14/2024 3:19 PM CDT [...] PM CDT documented as of this encounter Progress Notes * Lay Angel - 12/05/2021 4:14 PM CDTFrom: Sourav Dutton To: April Morris Sent: 12/05/2021 4:12 PM CDT Subject: Post EGD/Colonoscopy I apologize for misstating the CT scan results. documented in this encounter Plan of Treatment Upcoming Encounters Date Type Department Care Team (Late st Contact Info) Description 10/25/2024 11:20 AM CDT Office Visit [facility] Multispecialty Care - [place] [address] [address] [place] [address] Melvin Ross MD [address] [place] [address] documented as of this encounter Visit Diagnoses Not on filedocumented in this encounter Additional Health Concerns Assessment Noted Time PHQ-9 Depression Total Score: 10 022 11:18 AM CDT documented as of this encounter Care Teams Hunting And Fishing Guide Relationship Specialty Start Date End Date Melvin Ross MD [address] [place] [address] PCP - General INTERNAL MEDICINE 08/23/21 [place] [address] [place] [address] Consulting Physician UROLOGY 05/29/22 Cortez Renee MD 3 [place] [address] Surgeon NEUROLOGICAL SURGERY 05/29/22 Enirco Millan MD [address] [facility] [address] [place] [address] Referring Physician SPORTS MEDICINE 01/21/24 documented as of this encounter
--- OUTSIDE RECORDS SUMMARY | 2024-09-20 13:26 | XMS_ITS | Encounter Summary ---
Author Organization [facility] - [facility] Address [facility]6 [place] [address] Care Team Providers Care Waste Hand Name Role Phone Melvin Ross MD Primary Care Provider [phone] Karime Johnston MD Unavailable [phone] Cortez Renee MD Unavailable [phone] Enrico Millan MD Unavailable [phone] Encounter Details Date Type Department Care Team (Latest Contact Info) Description 11/21/2021 Enstratius Message Enc [facility] Medical [facility] Multispecialty Care - [facility] 3 [facility], [address] [place] [address] April Morris NP 3 [facility]. 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 No / Unsure 11/21/2021 11:16 AM CDT documented as of this encounter Plan of Treatment Upcoming Encounters Date Type Department Care Team (Late st Contact Info) Description 10/25/2024 11:20 AM CDT Office Visit [facility] Multispecialty Care - [place] [address] [address] [place], [place] [address] Melvin Ross MD [address] [place] [address] documented as of this encounter Visit Diagnoses Not on filedocumented in this encounter Additional Health Concerns Assessment Noted Time PHQ-9 Depression Total Score: 10 022 11:18 AM CDT documented as of this encounter Care Teams Waste Hand Relationship Specialty Start Date End Date Melvin Ross MD [address] [place] [phone] PCP - General INTERNAL MEDICINE 08/23/21 [place] [address] [place] [phone] Consulting Physician UROLOGY 05/29/22 Cortez Renee MD 3 [place], [place] [phone] Surgeon NEUROLOGICAL SURGERY 05/29/22 Enrico Millan MD [address] [facility] [address] [place] [phone] Referring Physician SPORTS MEDICINE 01/21/24 documented as of this encounter
--- OUTSIDE RECORDS SUMMARY | 2024-09-20 13:26 | XMS_ITS | Encounter Summary ---
Author Organization [facility] - [facility] Address [facility] [place] [address] Care Team Providers Care Information Technology Assistant Name Role Phone Melvin Ross MD Primary Care Provider [phone] Karime Johnston MD Unavailable [phone] Cortez Renee MD Unavailable [phone] Enrico Millan MD Unavailable [phone] Encounter Details Date Type Department Care Team (Late st Contact Info) Description 04/08/[address] 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 Multispecialty Care - [place] [address] [address] [place] [address] Melvin Ross MD [address] [place] [address] documented as of this encounter Visit Diagnoses Not on filedocumented in this encounter Additional Health Concerns Assessment Noted Time PHQ-9 Depression Total Score: 10 023 12:29 PM CDT documented as of this encounter Care Teams Information Technology Assistant Relationship Specialty Start Date End Date Melvin Ross MD [address] [place] [address] PCP - General INTERNAL MEDICINE 08/23/21 [place] [address] [place] [phone] Consulting Physician UROLOGY 05/29/22 Cortez Renee MD 3 [place] [address] Surgeon NEUROLOGICAL SURGERY 05/29/22 Enrico Millan MD [address] [facility] [address] [place] [phone] Referring Physician SPORTS MEDICINE 01/21/24 documented as of this encounter
--- OUTSIDE RECORDS SUMMARY | 2024-09-20 13:26 | XMS_ITS | Encounter Summary ---
Author Organization [facility] - [facility] Address [facility]6 [place] [address] Care Team Providers Care Order Department Supervisor Name Role Phone Melvin Ross MD Primary Care Provider [phone] Karime Johnston MD Unavailable [phone] Cortez Renee MD Unavailable [phone] Enrico Millan MD Unavailable [phone] Encounter Details Date Type Department Care Team (Latest Contact Info) Description 09/13/2024 Results Follow-Up [facility] Medical Group Multispecialty Care - [place] [address] [address] [place] [address] Melvin Ross MD [address] [place] [address] [address] [place] [address] USE ECHOCARDIOGRAM W CON Social History Tobacco Use Types Packs/Day Years [...] from your doctor or pharmacy? Never 07/14/2024 [facility] Utilities Answer Date Recorded In the [...] week 07/14/2024 How often do you attend [facility] or yarsanism services? More than 4 times per year 07/14/2024 Do you belong to any clubs o r organizations such as pentecostalism groups, unions, fraternal or athletic groups, or [...] Recorded Patient Health Questionnaire-2 Score 1 07/21/2024 [facility] [place] of Occupat ional Health - Occupational Stress [...] were you homeless or living in a snf (including now)? 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 Gender Identity Male 07/14/2024 3:19 PM CDT [...] Description 10/25/2024 11:20 AM CDT Office Visit [facility] Medical Group Multispecialty Care - [address] [place] [address] Melvin Ross MD [address] [facility] 157 [place] [address] documented as of this encounter Visit Diagnoses Not on filedocumented in this encounter Additional Health Concerns Assessment Noted Time PHQ-9 Depression Total Score: 4 07/22/19 25 9:52 AM CDT documented as of this encounter Care Teams Order Department Supervisor Relationship Specialty Start Date End Date Melvin Ross MD [address] [facility] [address] [place] [address] PCP - General INTERNAL MEDICINE 08/23/21 [place] [address] [place] [address] Consulting Physician UROLOGY 05/29/22 Cortez Renee MD 3 [place] [address] Surgeon NEUROLOGICAL SURGERY 05/29/22 Enrico Millan MD [address] [facility] [address] [place] [address] Referring Physician SPORTS MEDICINE 01/21/24 documented as of this encounter
--- OUTSIDE RECORDS SUMMARY | 2024-09-20 13:26 | XMS_ITS | Clinical Summary ---
Author Organization [facility] Address [facility] [place] [address] Care Team Providers Care Nnps Name Role Phone Melvin Ross MD Primary Care Provider [phone] Allergies No known active allergies Medications clonazePAM [...] indicated Assessment & Plan (01/22/2023 4:09 PM MIGRATION AGENT): Probably hypogonadism Pathophysiology of pituitary gonadal axis was explained in detail as well as the circadian production of testosterone. Will recheck morning free and total testosterone, FSH, LH and prolactin Will start treatment with T replacement as indicated Borderline abnormal TFTs 01/22/2023 Assessment & Plan (01/22/2023 4:09 PM MIGRATION AGENT): Update TFTs and treat it, if indicated Nocturia 01/22/2023 Surgical History Surgery Date Site/Laterality Comments SHOULDER SURGERY Right Medical History Medical History Date Comments Hypertension Migraines Family History Medical History Relation Name Comments Leukemia Father Hypertension Mother Relation Name Status Comments Father Mother Social History Tobacco Use Types Packs/Day Years [...] on file Legal Sex Male 4:46 PM MIGRATION AGENT Gender Identity Not on file Sexual Orientation Not on file Obstetrics History Last Filed Vital Signs Vital Sign Reading [...] 06/12/2023 1:25 PM CDT Plan of Treatment Health Maintenance Due Date Last Done Comments Colon Cancer Screening-Colonoscopy 1955 Fall Risk Assessment 1955 Hepatitis C Screening 1955 Hepatitis B Screening 07/23/1971 Zoster Vaccine (1 of 2) 07/23/2003 Abdominal Aortic Aneurysm (A AA) Screen 2018 Well Visit 65+ 2018 Covid-19 Vaccine (3 - 2023-2 5 season) 2023 10/07/2020, 10/07/2020, 09/09/2020, Additional history exists Depression Screening 01/23/2024 01/22/2023 DTaP/Tdap/Td Vaccine (2 - Td or Tdap) 2024 2014 Influenza Vaccine (Season Ended) 2024 01/22/20 22, 02/22/2020 Pneumococcal vaccine 65+ Completed 023, 11/15/2020, 05/10/2019 Prostate Cancer Screening-PSA Discontinued 01/22/2023 Procedures Procedure Name Priority Date/Time Associated Diagnosis Comments PSA SCREEN Routine 01/22/2023 11:08 AM MIGRATION AGENT Nocturia from Last 3 Months or Most Recently Relevant to Health Maintenance Results * PSA screen (01/22/2023 11:08 AM MIGRATION AGENT) PSA-Total 1.88 <=5.40 ng/mL JAVI Comment: Interpretive Data AGE SEX REFERENCE INTERVAL [...] revised 21. Blood 01/22/2023 11:0 8 AM MIGRATION AGENT 01/22/2023 12:57 PM MIGRATION AGENT us Jeremias Vela MD LAB [place]LOOD [place] [id number] [facility] [place] [address] from Last 3 Months or Most Recently Relevant to Health Maintenance Insurance [employer] [place] [facility] MEDICARE [facility] Address: [address] [address] [place] [address] Care Teams Nnps Relationship Specialty Start Date End Date Melvin Ross MD [address] [facility] [address] [place] [address] PCP - General Internal Medicine 12/26/22
--- OUTSIDE RECORDS SUMMARY | 2024-09-20 13:26 | XMS_ITS | Encounter Summary ---
Author Organization [facility] - [facility] Address [address] [place] [address] Care Team Providers Care Feather Drying Machine Operator Name Role Phone Melvin Ross MD Primary Care Provider [phone] Karime Johnston MD Unavailable [phone] Cortez Renee MD Unavailable [phone] Enrico Millan MD Unavailable [phone] Encounter Details Date Type Department Care Team (Late st Contact Info) Description 09/13/2024 MyChart Message Enc [facility] Medical Group Multispecialty Care - [place] [address] [place] [address] [address] [place] [address] Melvin Ross MD [address] [place] [address] 157 [place] [address] Methylphenidate Social History Tobacco Use Types Packs/Day Years [...] from your doctor or pharmacy? Never 07/14/2024 [facility] Utilities Answer Date Recorded In the [...] week 07/14/2024 How often do you attend [facility] or orthodox services? More than 4 times per year 07/14/2024 Do you belong to any clubs o r organizations such as jewish groups, unions, fraternal or athletic groups, or [...] Recorded Patient Health Questionnaire-2 Score 1 07/21/2024 [facility] [place] of Occupat ional Health - Occupational Stress [...] any time in the past 12 m [facility], were you homeless or living in a prison (including now)? 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 Gender Identity Male 07/14/2024 3:19 PM CDT [...] 10/25/2024 11:20 AM CDT Office Visit [facility] Multispecialty Care - [address] [place] [address] Melvin Ross MD [address] [facility] [address] [place] [address] documented as of this encounter Visit Diagnoses Not on filedocumented in this encounter Additional Health Concerns Assessment Noted Time PHQ-9 Depression Total Score: 4 07/22/19 25 9:52 AM CDT documented as of this encounter Care Teams Feather Drying Machine Operator Relationship Specialty Start Date End Date Melvin Ross MD [address] [facility] [address] [place] [address] PCP - General INTERNAL MEDICINE 08/23/21 [place] [address] [place] [address] Consulting Physician UROLOGY 05/29/22 Cortez Renee MD [address] [place] [address] Surgeon NEUROLOGICAL SURGERY 05/29/22 Enrico Millan MD [address] [facility] [address] [place] [address] Referring Physician SPORTS MEDICINE 01/21/24 documented as of this encounter
--- OUTSIDE RECORDS SUMMARY | 2024-09-20 13:26 | XMS_ITS | Encounter Summary ---
Author Organization [facility] - [facility] Address [facility] [place] [address] Care Team Providers Care Real Estate Agency Principal Name Role Phone Melvin Ross MD Primary Care Provider [phone] Karime Johnston MD Unavailable [phone] Cortez Reene MD Unavailable [phone] Enrico Millan MD Unavailable [phone] Encounter Details Date Type Department Care Team (Late st Contact Info) Description 11/02/2021 SR Labs Message Enc [facility] Medical Group Multispecialty Care - [address] [place] [address] [employer], 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 No / Unsure 10/31/2021 3:05 PM CDT documented as of this encounter Plan of Treatment Upcoming Encounters Date Type Department Care Team (Late st Contact Info) Description 10/25/2024 11:20 AM CDT Office Visit [facility] Medical Group Multispecialty Care - [place] [address] [address] [place] [address] Melvin Ross MD [address] [place] [address] documented as of this encounter Visit Diagnoses Not on filedocumented in this encounter Additional Health Concerns Assessment Noted Time PHQ-9 Depression Total Score: 10 022 11:18 AM CDT documented as of this encounter Care Teams Real Estate Agency Principal Relationship Specialty Start Date End Date Melvin Ross MD [address] [place] [address] PCP - General INTERNAL MEDICINE 08/23/21 [place] [address] [place] [address] Consulting Physician UROLOGY 05/29/22 Cortez Renee MD 3 [place] [address] Surgeon NEUROLOGICAL SURGERY 05/29/22 Enrico Millan MD [address] [facility] [address] [place] [phone] Referring Physician SPORTS MEDICINE 01/21/24 documented as of this encounter
--- OUTSIDE RECORDS SUMMARY | 2024-09-20 13:26 | XMS_ITS | Encounter Summary ---
Author Organization [facility] - [facility] Address [facility] [place] [address] Care Team Providers Care Russian Teacher Name Role Phone Melvin Ross MD Primary Care Provider [phone] Karime Johnston MD Unavailable [phone] Cortez Renee MD Unavailable [phone] Enrico Millan MD Unavailable [phone] Encounter Details Date Type Department Care Team (Late st Contact Info) Description 05/13/2023 MyCSoundsupplyt Message Enc [facility] Medical Group Multispecialty Care - [place] [address] [place] [address] [address] [place] [address] [place] [address] [place] [address] 157 [place] [address] IBS-C Social History Tobacco Use [...] PM CDT 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 Gender Identity Male 07/14/2024 3:19 PM [...] Description 10/25/2024 11:20 AM CDT Office Visit [facility] Medical Group Multispecialty Care - [place] [address] [address] [place] [address] Melvin Ross MD [address] [place] [address] documented as of this encounter Visit Diagnoses Not on filedocumented in this encounter Additional Health Concerns Assessment Noted Time PHQ-9 Depression Total Score: 6 04/16/19 24 12:22 PM ALUMINUM BOAT ASSEMBLY SUPERVISOR documented as of this encounter Care Teams Russian Teacher Relationship Specialty Start Date End Date Melvin Ross MD [address] [place] [address] PCP - General INTERNAL MEDICINE 08/23/21 [place] [address] [place] [phone] Consulting Physician UROLOGY 05/29/22 Cortez Renee MD [address] [place] [address] Surgeon NEUROLOGICAL SURGERY 05/29/22 Enrico Millan MD [address] [facility] [address] [place] [phone] Referring Physician SPORTS MEDICINE 01/21/24 documented as of this encounter
--- NOTE | 2024-09-20 14:15 | NEURO_ITS ---
Impression: # Complains of numbness of legs. ? 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 ? # Needle/EMG exam with severely decreased motor unit potentials but no fibrillations or ? myotonia. ?Nerve Conduction Studies ?Stim Site NR Peak (ms) P-T Amp (?V) Site1 Site2 Delta-P (ms) Dist (cm) Eddie (m/s) Left Sup Fibular Anti Sensory (Ant Lat Mall)??? NO RESPONSE 14 cm NR 14 cm Ant Lat Mall 16.0 Right Sup Fibular Anti Sensory (Ant Lat Mall)??? NO RESPONSE 14 cm NR 14 cm Ant Lat Mall 16.0 Left Sural Anti Sensory (Lat Mall)??? NO RESPONSE Calf NR Calf Lat Mall 16.0 Right Sural Anti Sensory (Lat Mall)??? NO RESPONSE Calf NR Calf Lat Mall 16.0 ?Stim Site NR Onset (ms) O-P Amp (mV) Site1 Site2 Delta-0 (ms) Dist (cm) Eddie (m/s) Left Peroneal Motor (Vastus Med)??? NO RESPONSE Ankle NR Popit Ankle 0.0 Popit NR Right Peroneal Motor (Vastus Med)??? NO RESPONSE Ankle NR Popit Ankle 0.0 Popit NR Left Tibial Motor (Abd Antony Brev)??? NO RESPONSE Ankle NR Knee NR Right Tibial Motor (Abd Antony Brev) Ankle NR Knee NR Electromyography ?Side Muscle Nerve Root Ins Act Fibs Amp Dur Recrt Comment Right Gastroc Tibial S1-2 Nml Nml Decr >12ms +1 Right AntTibialis Dp Br Fibular L4-5 Nml Nml Decr >12ms +1 Right Fibularis Long Sup Br Fibular L5-S1 Nml Nml Decr >12ms +1 Right Flex Dig Long Tibial L5-S2 Nml Nml Decr >12ms +1 Right Ext Dig Brev Dp Br Fibular L5, S1 Nml Nml Decr >12ms +1 Right QuadratusFem QuadFemoris L4-5, S1 Nml Nml Nml Nml Nml Left AntTibialis Dp Br Fibular L4-5 Nml Nml Decr >12ms +1 Left Gastroc Tibial S1-2 Nml Nml Nml Nml Nml Left Fibularis Long Sup Br Fibular L5-S1 Nml Nml Decr >12ms +1 Left Flex Dig Long Tibial L5-S2 Nml Nml Decr >12ms +1 Left Ext Dig Brev Dp Br Fibular L5, S1 Nml Nml Decr >12ms +1 Left QuadratusFem QuadFemoris L4-5, S1 Nml Nml Decr >12ms +1
== END 2024-09-20 13:17 | disposition home or self-care (01) ==
PROVIDERS: PCP Podiatrist Foot & Ankle Surgery; Visit Provider Podiatrist Foot & Ankle Surgery
DX: G60.8 Other hereditary and idiopathic neuropathies (principal)
CPT/HCPCS: 95886; 95910